=== PATIENT | female | born 1960 | race Caucasian/White ===

== ENCOUNTER → 2016-12-27 | Outpatient (CLI) | payer OTHER ==
[2016-12-27 13:26] LABS: BASO % 0.4 %; BASO ABS # 0.03 K/uL (0-0.2); COMPLETE YES; EOS % 2.9 %; HEMATOCRIT 40.1 % (37-47); IG% 0.1 %; LYMPH % 31.6 %; LYMPH ABS # 2.29 K/uL (1.2-3.4); MEAN CELL VOLUME 91.8 fL (80-100); MEAN CORPUSCULAR HEMOGLOBIN 30.9 pg (25-34); MEAN CORPUSCULAR HGB CONC 33.7 g/dl (32-36); MEAN PLATELET VOLUME 10.1 fL (7.4-10.4); MONO % 12.3 %; NEUT % 52.7 %; PLATELET COUNT 261 K/uL (130-400); RED BLOOD COUNT 4.37 M/uL (4.2-5.4); WHITE BLOOD COUNT 7.24 K/uL (4.8-10.8)
[2016-12-27 14:12] LABS: ALKALINE PHOSPHATASE 92 U/L (45-117); ALT/SGPT 24 U/L (12-78); AST/SGOT 16 U/L (15-37); BLOOD UREA NITROGEN 23 mg/dl (7-18); BUN/CREATININE RATIO 25.7 (10-20); CALCIUM 9.3 mg/dl (8.5-10.1); CARBON DIOXIDE 29 mmol/L (21-32); CHLORIDE 105 mmol/L (98-107); CREATININE 0.88 mg/dl (0.60-1.20); GLUCOSE 90 mg/dl (70-99); MAGNESIUM 2.3 mg/dl (1.8-2.4); POTASSIUM 3.9 mmol/L (3.5-5.1); SODIUM 140 mmol/L (136-145)
== END | disposition home or self-care (01) ==
LOC: C.LABBC 10:11
PROVIDERS: ATTEND Family Medicine
DX: R00.2 Palpitations (principal)

== ENCOUNTER → 2017-01-21 | Outpatient (CLI) | payer OTHER | END | disposition home or self-care (01) | LOC: C.PATHSPEC 14:08 | PROVIDERS: ATTEND Dermatology | DX: D23.61 Other benign neoplasm of skin of right upper limb, including shoulder (principal) ==

== ENCOUNTER → 2017-02-17 | Outpatient (CLI) | payer OTHER | END | disposition home or self-care (01) | LOC: C.PAPS 12:53 | PROVIDERS: ATTEND Family Medicine | DX: Z12.72 Encounter for screening for malignant neoplasm of vagina (principal) ==

== ENCOUNTER 2017-03-23 15:51 | Emergency (ER) | payer OTHER ==
[~2017-03-23] VITALS: Ht 170.2 cm; Wt 106.9 kg
[2017-03-23 15:55] VITALS: TEMP 37.1; Ht 170.2 cm; Wt 106.9 kg
[2017-03-23] MEDS ORDERED: MULT-580 PO (16:12)
[2017-03-23] MEDS ORDERED: PTDOPS OP (16:12)
[2017-03-23] MEDS ORDERED: ASPI81TA28 PO (16:12)
[2017-03-23] MEDS ORDERED: HYDR25TA5 PO (16:12)
[2017-03-23] MEDS ORDERED: MULT-506 PO (16:12)
[2017-03-23] MEDS ORDERED: CHOL100010 PO (16:12)
[2017-03-23] MEDS ORDERED: MONT1TAB3 PO (16:12)
--- NOTE | 2017-03-23 16:59 | DIAGNOSTIC IMAGING REPORT ---
LEFT KNEE 3 VIEWS CLINICAL HISTORY: Fall with left knee pain. FINDINGS: AP, crosstable lateral, and sunrise views of the left knee are obtained. No prior studies are available for comparison at the time of dictation. The skeletal structures are well mineralized. No fracture is seen. There is mild tricompartmental degenerative joint space narrowing, greatest at the patellofemoral articulation. No joint effusion is identified. There is a superior patellar enthesophyte. Prepatellar soft tissue swelling is noted. IMPRESSION: Prepatellar soft tissue swelling with no radiographic evidence of left knee fracture. Electronically signed by: Randy Graham M.D. 03/23/2017 4:57 PM Dictated Date/Time: 03/23/2017 4:56 PM
--- NOTE | 2017-03-23 17:42 | EMERGENCY ROOM VISIT NOTE ---
ED Visit Note First contact with patient: 16:07 CHIEF COMPLAINT: Knee injury HISTORY OF PRESENT ILLNESS: This patient injured the XXXXX knee when XXXXX. REVIEW OF SYSTEMS: No weakness or numbness of the leg, no previous serious injuries or surgery to this knee. PMH: The patient is healthy; there is no significant medical or surgical history. SOCIAL HISTORY: Patient lives at home. PHYSICAL EXAM: Vital Signs: Reviewed Nurse's notes. MENTAL STATUS: Alert, oriented, and cooperative. KNEE: The affected knee is tender but not swollen. There is no joint effusion. The range of motion is limited secondary to pain. There is no ligamentous instability. The skin is normal and intact. The patient walks with an antalgic gait. IMAGING: LEFT KNEE 3 VIEWS CLINICAL HISTORY: Fall with left knee pain. FINDINGS: AP, crosstable lateral, and sunrise views of the left knee are obtained. No prior studies are available for comparison at the time of dictation. The skeletal structures are well mineralized. No fracture is seen. There is mild tricompartmental degenerative joint space narrowing, greatest at the patellofemoral articulation. No joint effusion is identified. There is a superior patellar enthesophyte. Prepatellar soft tissue swelling is noted. IMPRESSION: Prepatellar soft tissue swelling with no radiographic evidence of left knee fracture. EMERGENCY DEPARTMENT COURSE: I examined the patient. Differential diagnosis includes []. X-ray does not show any fractures or fluid in the joint, no foreign bodies. Current/Historical Medications Scheduled Aspirin (Aspirin Ec), 81 MG PO DAILY Cholecalciferol (Vitamin D), 1 TAB PO DAILY Hydrochlorothiazide (Hydrochlorothiazide), 2 TABS PO DAILY Montelukast Sodium (Singulair), 1 TAB PO DAILY Multiple Vitamins W/ Minerals (Hair/Skin/Nails), 1 TAB PO DAILY Multivitamin (Multivitamin), 1 TAB PO DAILY Olopatadine Hydrochloride (Pataday), 1 DROPS OP DAILY Allergies Coded Allergies: Bacitracin (Unverified Allergy, Intermediate, RASH, 03/23/17) SHE GETS A RASH AND SAYS THE WOUND GETS BIGGER IF SHE USES THIS. Neomycin (Unverified Allergy, Intermediate, RASH, 03/23/17) SHE GETS A RASH AND SAYS THE WOUND GETS BIGGER IF SHE USES THIS. Polymyxin B (Unverified Allergy, Intermediate, RASH, 03/23/17) SHE GETS A RASH AND SAYS THE WOUND GETS BIGGER IF SHE USES THIS. Uncoded Allergies: PLASTIC BAND-AIDS (Adverse Reaction, Intermediate, RASH, 03/23/17) Vital Signs Date Time Temp Pulse Resp B/P (MAP) Pulse Ox O2 Delivery O2 Flow Rate FiO2 03/23/17 15:55 37.1 87 17 148/99 95 Room Air Departure Information Impression Primary Impression: Contusion of knee, left Additional Impression: Laceration of left knee without foreign body Dispostion Home / Self-Care Condition GOOD Referrals Paulino Ribeiro, (PCP) Patient Instructions ED Abrasion, ED Contusion Lower Ext, My [facility] Additional Instructions Keep the bandage in place and wear the Anthony wrap for the rest of today. You may remove the bandage tomorrow and wash the wound with soap and water, do not use alcohol or peroxide to clean the wound. After washing, pat the wound dry and keep covered with a Band-Aid for the next 3 -4 days. You may continue to wear the Anthony wrap to the knee for comfort for the next few days as well. Apply ice to the knee for the next 3 days to help reduce pain and swelling. For pain, you may take the following [id number] medications as needed: - Tylenol (acetaminophen) 1000 g every 8 hours as needed, no more than 3000 mg in 24 hours. - Ibuprofen 600 mg every 6-8 hours as needed, no more than 2400 mg in 24 hours. Please follow-up with your primary care provider in the next 3-4 days if your knee pain is not improved. Please seek immediate medical attention for any signs of infection, including increasing pain, redness, swelling, pus drainage, streaking up the leg, fever/ chills, or any other concerns. Work Instructions Return To Work: 2 days Problem Qualifiers Primary Impression: Contusion of knee, left Encounter type: initial encounter Qualified Codes: S80.02XA - Contusion of left knee, initial encounter Additional Impression: Laceration of left knee without foreign body Encounter type: initial encounter Qualified Codes: S81.012A - Laceration without foreign body, left knee, initial encounter
[2017-03-23 18:07] VITALS: BP 136/95; PULSE 82; O2SAT 96
== END 2017-03-23 18:23 | disposition home or self-care (01) ==
LOC: C.EDB 15:53 → C.EDD 18:23
DX: S80.02XA Contusion of left knee, initial encounter (principal); S81.012A Laceration without foreign body, left knee, initial encounter; W19.XXXA Unspecified fall, initial encounter

== ENCOUNTER → 2017-07-04 | Outpatient (CLI) | payer OTHER ==
[~2017-07-04] MED LIST: ASPI81TA28 PO; CHOL100010 PO; HYDR25TA5 PO; MONT1TAB3 PO; MULT-506 PO; MULT-580 PO; PTDOPS OP
--- NOTE | 2017-07-04 17:06 | DIAGNOSTIC IMAGING REPORT ---
LEFT ANKLE 3 VIEWS CLINICAL HISTORY: Left ankle twisting injury. FINDINGS: 3 views of the left ankle are obtained. No prior studies are available for comparison at the time of dictation. The skeletal structures are well mineralized for age. There is a tiny avulsion fracture identified along the inferior aspect of the lateral malleolus. No additional fracture is seen. The ankle mortise is intact. There is a joint effusion, and soft tissue swelling is present around the ankle. Small phlebolith are noted in the calf. IMPRESSION: 1. There is a tiny avulsion fracture along the inferior aspect of the lateral malleolus. 2. Soft tissue swelling and joint effusion. Electronically signed by: Randy Graham M.D. 07/04/2017 5:05 PM Dictated Date/Time: 07/04/2017 5:04 PM
== END | disposition home or self-care (01) ==
LOC: C.RAD 16:39
PROVIDERS: ATTEND Family Medicine
DX: S82.892A Other fracture of left lower leg, initial encounter for closed fracture (principal); X58.XXXA Exposure to other specified factors, initial encounter

== ENCOUNTER 2017-07-14 14:17 | Emergency (ER) | payer OTHER ==
[~2017-07-14] VITALS: Ht 170.2 cm; Wt 105.2 kg
[2017-07-14 14:20] VITALS: TEMP 36.9; Ht 170.2 cm; Wt 105.2 kg
[2017-07-14] MEDS ORDERED: IBUP-103 PO (14:38)
[2017-07-14] MEDS ORDERED: ASPECOTC PO (14:38)
[2017-07-14 15:09] LABS: BASO % 0.3 %; BASO ABS # 0.02 K/uL (0-0.2); EOS % 2.1 %; EOS ABS # 0.17 K/uL (0-0.5); HEMATOCRIT 41.3 % (37-47); HEMOGLOBIN 14.2 g/dL (12.0-16.0); IG# 0.02 K/uL (0.00-0.02); LYMPH ABS # 2.31 K/uL (1.2-3.4); MEAN CORPUSCULAR HEMOGLOBIN 31.3 pg (25-34); MEAN CORPUSCULAR HGB CONC 34.4 g/dl (32-36); MEAN PLATELET VOLUME 9.2 fL (7.4-10.4); MONO % 9.5 %; MONO ABS # 0.76 K/uL (0.11-0.59); NEUT % 58.8 %; NEUT ABS # 4.68 K/uL (1.4-6.5); PLATELET COUNT 243 K/uL (130-400); RED CELL DISTRIBUTION WIDTH CV 12.8 % (11.5-14.5); RED CELL DISTRIBUTION WIDTH SD 42.8 fL (36.4-46.3); WHITE BLOOD COUNT 7.96 K/uL (4.8-10.8)
--- NOTE | 2017-07-14 15:20 | DIAGNOSTIC IMAGING REPORT ---
CHEST ONE VIEW PORTABLE CLINICAL HISTORY: Chest Pain dyspnea COMPARISON STUDY: No previous studies for comparison. FINDINGS: The bones soft tissues and hemidiaphragms are normal. The cardiomediastinal silhouette is normal. The lungs are clear. The pulmonary vasculature is normal. IMPRESSION: Negative chest. The above report was generated using voice recognition software. It may contain grammatical, syntax or spelling errors. Electronically signed by: Tam Morales M.D. 07/14/2017 3:18 PM Dictated Date/Time: 07/14/2017 3:18 PM
[2017-07-14 15:39] LABS: ALBUMIN 3.9 gm/dl (3.4-5.0); ALT/SGPT 26 U/L (12-78); AST/SGOT 18 U/L (15-37); BLOOD UREA NITROGEN 23 mg/dl (7-18); CALCIUM 8.9 mg/dl (8.5-10.1); CARBON DIOXIDE 31 mmol/L (21-32); CREATININE 0.99 mg/dl (0.60-1.20); GLUCOSE 117 mg/dl (70-99); LIPASE 219 U/L (73-393); POTASSIUM 3.7 mmol/L (3.5-5.1); SODIUM 139 mmol/L (136-145)
[2017-07-14 15:45] LABS: ALKALINE PHOSPHATASE 95 U/L (45-117); CKMB 1.9 ng/ml (0.5-3.6); TOTAL PROTEIN 8.1 gm/dl (6.4-8.2)
[2017-07-14] MEDS ORDERED: OPTIRAY 320 IV PRN (16:45)
--- NOTE | 2017-07-14 17:10 | DIAGNOSTIC IMAGING REPORT ---
(CHEST FOR PE) ANGIO WITH CLINICAL HISTORY: 57 years-old Female presenting with ^back pain and pleuritic chest pain. TECHNIQUE: Multidetector CT angiography of the chest was performed after administration of intravenous contrast. 3-D volumetric and/or maximum intensity projection (MIP) images were subsequently reconstructed for review. IV contrast: 94 mL of Optiray 320. A dose lowering technique was used consistent with the principles of ALARA (as low as reasonably achievable). COMPARISON: Chest x-ray performed earlier today. CT DOSE (mGy.cm): The estimated cumulative dose is 544.76 mGycm. FINDINGS: [employer] topogram: Unremarkable. Pulmonary vasculature: The study is suboptimal for the assessment of the pulmonary vascular tree secondary to timing of the contrast bolus. No filling defect within the pulmonary arteries to suggest embolus. Main pulmonary artery is not enlarged. No flattening of the interventricular septum. No intracardiac filling defect. No reflux of contrast into the hepatic veins. Remaining chest: On soft tissue windows, normal thyroid and thoracic inlet. No axillary, supraclavicular, hilar, or mediastinal lymphadenopathy. Normal aorta. Normal heart size. No pericardial or pleural effusion. Upper abdomen normal. On lung windows, minimal dependent changes likely atelectasis. 4 mm solid peripheral nodule in the right lower lobe (series 4 image 157). Solid subpleural 3 mm nodule in the right lower lobe (series 4 image 182). No other focal nodule or infiltrate. Mild bronchial wall thickening. Airways patent. On bone windows, normal osseous structures. IMPRESSION: 1. Allowing for suboptimal image quality, no evidence of pulmonary embolus. 2. Solid right lower lobe pulmonary nodules measuring up to 4 mm. Follow-up per Roger Society 2017 recommendations below. 3. Mild bronchial wall thickening could suggest mild bronchitis/bronchiolitis or reactive airways. No focal infiltrate to suggest pneumonia. Please refer to below summary of Fleischner Society 2017 recommendations for follow-up of incidental CT nodules (H Anum et al. Guidelines for management of incidental pulmonary nodules detected on CT images: From the Fleischner Society 2017. Radiology 2017; 284: 228-243.) SOLID NODULES Single nodule; size < 6 mm * Low risk patients: No routine follow-up * High risk patients: Optional CT at 12 months Single nodule; size 6-8 mm * Low risk patients: CT at 6-12 months, then consider CT at 18-24 months * High risk patients: CT at 6-12 months, then at 18-24 months Single nodule; size > 8 mm * Either low or high risk patients: Considered CT at 3 months, PET/CT, or tissue sampling Multiple nodules; size < 6 mm * Low risk patients: No routine follow up * High risk patients: Optional CT at 12 months Multiple nodules; size 6-8 mm * Low risk patients: CT at 3-6 months, then consider CT at 18-24 months * High risk patients: CT at 3-6 months, then at 18-24 months Multiple nodules; size > 8 mm * Low risk patients: CT at 3-6 months, then consider at 18-24 months * High risk patients: CT at 3-6 months, then at 18-24 months SUBSOLID NODULES Single ground-glass nodule * Nodule size < 6 mm: No routine follow-up * Nodule size > or = 6 mm: CT at 6-12 months to confirm persistence, then CT every 2 years until 5 years Single part-solid nodule * Nodule size < 6 mm: No routine follow-up * Nodules size > or = 6 mm: CT at 3-6 months to confirm persistence. If unchanged and solid component remains < 6 mm, annual CT should be performed for 5 years Multiple nodules * Nodule size < 6 mm: CT at 3-6 months. If stable, consider CT at 2 and 4 years. * Nodules size > or = 6 mm: CT at 3-6 months. Subsequent management based on the most suspicious nodule(s) NOTE: 1) These guidelines apply to incidental nodules. These guidelines do NOT apply to patients younger than 35 years, immunocompromised patients, or patients with cancer. 2) Risk categories: * Low risk patients: Minimal or absent history of smoking and/or other known risk factors * High risk patients: History of smoking, exposure to other carcinogens, emphysema, fibrosis, upper lobe location, family history of lung cancer, etc. 3) If a nodule up to 8 mm is partly solid or is ground glass, further follow-up is required after 24 months to exclude possible slow growing adenocarcinoma. Electronically signed by: Hayder Roth M.D. 07/14/2017 5:09 PM Dictated Date/Time: 07/14/2017 5:03 PM
--- NOTE | 2017-07-14 17:51 | EMERGENCY ROOM VISIT NOTE ---
History Report prepared by [place]: Duke Marley Under the Supervision of: Dr. Thang Rosas D.O. First contact with patient: 14:33 Chief Complaint: CARDIAC ASSESSMENT Stated Complaint: HEART PRESSURE Nursing Triage Summary: Last night patient had sudden onset of pain between shoulder blades. Patient at that time had nausea and vomiting. that pain went away and patient went to bed. Today around 1300 pain came back in between shoulder blades, pain goes into upper and left abd. Patient says she feels like she has to burp. History of Present Illness The patient is a 57 year old female who presents to the Emergency Room with complaints of intermittent upper central back pain beginning last night. She describes her pain as "stabbing". The patient's pain initially began after eating dinner. Her pain resolved after going to bed, and returned at 12:00 while eating lunch. The patient also complains of pain radiating into her chest intermittently from her back when the pain intensifies. She also admits to some nausea and one episode of vomiting last night and shakiness last night. Her pain is worse with breathing. The patient did not vomit with her pain today , but felt nauseous with her pain again. No other exacerbating or remitting factors. Pt denies headache, change in vision, fevers, shortness of breath, abdominal pain, nausea, vomiting, diarrhea, pain with urination, and melena. Patient denies swelling of calves, recent trips, history of immobilization or recent surgery, prior history of DVT, hemoptysis, history of malignancy, or control/estrogen use. Patient denies diabetes, hypertension, hyperlipidemia, CAD, history of sudden at a young age, and smoking. Source of History: patient Onset: Last night Position: back (upper central) Quality: stabbing Timing: intermittent Modifying Factors (Worsening): breathing Associated Symptoms: + chest pain (intermittent), + nausea, + vomiting, No fevers, No headache, No SOB, No melena, No diarrhea Note: Positive: shakiness. Review of Systems See HPI for pertinent positives & negatives. A total of 10 systems reviewed and were otherwise negative. Past Medical & Surgical Medical Problems: (1) HTN (hypertension) Family History No pertinent family history stated. Social History Smoking Status: Never Smoker Housing Status: lives with family Current/Historical Medications Scheduled Aspirin (Aspirin), 325 MG PO DAILY Cholecalciferol (Vitamin D), 1 TAB PO DAILY Hydrochlorothiazide (Hydrochlorothiazide), 2 TABS PO DAILY Ibuprofen Tab (Advil), 0 PO DAILY Montelukast Sodium (Singulair), 1 TAB PO DAILY Multiple Vitamins W/ Minerals (Hair/Skin/Nails), 1 TAB PO DAILY Multivitamin (Multivitamin), 1 TAB PO DAILY Olopatadine Hydrochloride (Pataday), 1 DROPS OP DAILY Allergies Coded Allergies: Bacitracin (Unverified Allergy, Intermediate, RASH, 07/14/17) SHE GETS A RASH AND SAYS THE WOUND GETS BIGGER IF SHE USES THIS. Neomycin (Unverified Allergy, Intermediate, RASH, 07/14/17) SHE GETS A RASH AND SAYS THE WOUND GETS BIGGER IF SHE USES THIS. Polymyxin B (Unverified Allergy, Intermediate, RASH, 07/14/17) SHE GETS A RASH AND SAYS THE WOUND GETS BIGGER IF SHE USES THIS. Uncoded Allergies: PLASTIC BAND-AIDS (Adverse Reaction, Intermediate, RASH, 03/23/17) Physical Exam Vital Signs Date Time Temp Pulse Resp B/P (MAP) Pulse Ox O2 Delivery O2 Flow Rate FiO2 07/14/17 16:00 73 131/88 07/14/17 14:56 77 20 147/89 98 Room Air 07/14/17 14:31 78 07/14/17 14:27 95 Room Air 07/14/17 14:20 36.9 83 20 163/102 97 Room Air Physical Exam GENERAL: Sitting up in bed, disheveled, no distress, non-toxic EYE EXAM: normal conjunctiva. OROPHARYNX: no exudate, no erythema, lips, buccal mucosa, and tongue normal and mucous membranes are moist NECK: supple, no nuchal rigidity, no adenopathy, non-tender LUNGS: Clear to auscultation. Normal chest wall mechanics HEART: no murmurs, S1 normal and S2 normal ABDOMEN: abdomen soft, non-tender, normo-active bowel sounds, no masses, no rebound or guarding. BACK: Back is symmetrical on inspection and there is no deformity, no CVA tenderness. Reproducible mid thoracic back pain. SKIN: no rashes and no bruising UPPER EXTREMITIES: upper extremities are grossly normal. Radial pulses are equal bilaterally. LOWER EXTREMITIES: No pitting edema. NEURO EXAM: Normal sensorium, cranial nerves II-XII grossly intact, normal speech, no gross weakness of arms, no gross weakness of legs. Medical Decision & Procedures ER Provider Diagnostic Interpretation: Radiology results as stated below per my review and the radiologist's interpretation: CHEST ONE VIEW PORTABLE FINDINGS: The bones soft tissues and hemidiaphragms are normal. The cardiomediastinal silhouette is normal. The lungs are clear. The pulmonary vasculature is normal. IMPRESSION: Negative chest. The above report was generated using voice recognition software. It may contain grammatical, syntax or spelling errors. Electronically signed by: Tam Morales M.D. 07/14/2017 3:18 PM (CHEST FOR PE) ANGIO WITH FINDINGS: Pasting Inspector topogram: Unremarkable. Pulmonary vasculature: The study is suboptimal for the assessment of the pulmonary vascular tree secondary to timing of the contrast bolus. No filling defect within the pulmonary arteries to suggest embolus. Main pulmonary artery is not enlarged. No flattening of the interventricular septum. No intracardiac filling defect. No reflux of contrast into the hepatic veins. Remaining chest: On soft tissue windows, normal thyroid and thoracic inlet. No axillary, supraclavicular, hilar, or mediastinal lymphadenopathy. Normal aorta. Normal heart size. No pericardial or pleural effusion. Upper abdomen normal. On lung windows, minimal dependent changes likely atelectasis. 4 mm solid peripheral nodule in the right lower lobe (series 4 image 157). Solid subpleural 3 mm nodule in the right lower lobe (series 4 image 182). No other focal nodule or infiltrate. Mild bronchial wall thickening. Airways patent. On bone windows, normal osseous structures. IMPRESSION: 1. Allowing for suboptimal image quality, no evidence of pulmonary embolus. 2. Solid right lower lobe pulmonary nodules measuring up to 4 mm. Follow-up per Roger Society 2017 recommendations below. 3. Mild bronchial wall thickening could suggest mild bronchitis/bronchiolitis or reactive airways. No focal infiltrate to suggest pneumonia. Please refer to below summary of Fleischner Society 2017 recommendations for follow-up of incidental CT nodules (Myles Rowan et al. Guidelines for management of incidental pulmonary nodules detected on CT images: From the Fleischner Society 2017. Radiology 2017; 284: 228-243.) SOLID NODULES Single nodule; size < 6 mm * Low risk patients: No routine follow-up * High risk patients: Optional CT at 12 months Single nodule; size 6-8 mm * Low risk patients: CT at 6-12 months, then consider CT at 18-24 months * High risk patients: CT at 6-12 months, then at 18-24 months Single nodule; size > 8 mm * Either low or high risk patients: Considered CT at 3 months, PET/CT, or tissue sampling Multiple nodules; size < 6 mm * Low risk patients: No routine follow up * High risk patients: Optional CT at 12 months Multiple nodules; size 6-8 mm * Low risk patients: CT at 3-6 months, then consider CT at 18-24 months * High risk patients: CT at 3-6 months, then at 18-24 months Multiple nodules; size > 8 mm * Low risk patients: CT at 3-6 months, then consider at 18-24 months * High risk patients: CT at 3-6 months, then at 18-24 months SUBSOLID NODULES Single ground-glass nodule * Nodule size < 6 mm: No routine follow-up * Nodule size > or = 6 mm: CT at 6-12 months to confirm persistence, then CT every 2 years until 5 years Single part-solid nodule * Nodule size < 6 mm: No routine follow-up * Nodules size > or = 6 mm: CT at 3-6 months to confirm persistence. If unchanged and solid component remains < 6 mm, annual CT should be performed for 5 years Multiple nodules * Nodule size < 6 mm: CT at 3-6 months. If stable, consider CT at 2 and 4 years. * Nodules size > or = 6 mm: CT at 3-6 months. Subsequent management based on the most suspicious nodule(s) NOTE: 1) These guidelines apply to incidental nodules. These guidelines do NOT apply to patients younger than 35 years, immunocompromised patients, or patients with cancer. 2) Risk categories: * Low risk patients: Minimal or absent history of smoking and/or other known risk factors * High risk patients: History of smoking, exposure to other carcinogens, emphysema, fibrosis, upper lobe location, family history of lung cancer, etc. 3) If a nodule up to 8 mm is partly solid or is ground glass, further follow-up is required after 24 months to exclude possible slow growing adenocarcinoma. Electronically signed by: Hayder Roth M.D. 07/14/2017 5:09 PM Laboratory Results 07/14/17 15:00 Red Blood Count 4.54, Mean Corpuscular Volume 91.0, Mean Corpuscular Hemoglobin 31.3, Mean Corpuscular Hemoglobin Concent 34.4, Mean Platelet Volume 9.2, Neutrophils (%) (Auto) 58.8, Lymphocytes (%) (Auto) 29.0, Monocytes (%) (Auto) 9.5, Eosinophils (%) (Auto) 2.1, Basophils (%) (Auto) 0.3, Neutrophils # (Auto) 4.68, Lymphocytes # (Auto) 2.31, Monocytes # (Auto) 0.76, Eosinophils # (Auto) 0.17, Basophils # (Auto) 0.02 07/14/17 15:00 Test 07/14/17 15:00 07/14/17 16:23 White Blood Count 7.96 K/uL (4.8-10.8) Red Blood Count 4.54 M/uL (4.2-5.4) Hemoglobin 14.2 g/dL (12.0-16.0) Hematocrit 41.3 % (37-47) Mean Corpuscular Volume 91.0 fL (80-100) Mean Corpuscular Hemoglobin 31.3 pg (25-34) Mean Corpuscular Hemoglobin Concent 34.4 g/dl (32-36) Platelet Count 243 K/uL (130-400) Mean Platelet Volume 9.2 fL (7.4-10.4) Neutrophils (%) (Auto) 58.8 % Lymphocytes (%) (Auto) 29.0 % Monocytes (%) (Auto) 9.5 % Eosinophils (%) (Auto) 2.1 % Basophils (%) (Auto) 0.3 % Neutrophils # (Auto) 4.68 K/uL (1.4-6.5) Lymphocytes # (Auto) 2.31 K/uL (1.2-3.4) Monocytes # (Auto) 0.76 K/uL (0.11-0.59) Eosinophils # (Auto) 0.17 K/uL (0-0.5) Basophils # (Auto) 0.02 K/uL (0-0.2) RDW Standard Deviation 42.8 fL (36.4-46.3) RDW Coefficient of Variation 12.8 % (11.5-14.5) Immature Granulocyte % (Auto) 0.3 % Immature Granulocyte # (Auto) 0.02 K/uL (0.00-0.02) Anion Gap 6.0 mmol/L (3-11) Est Creatinine Clear Calc Drug Dose 79.2 ml/min Estimated GFR () 73.8 Estimated GFR (Non- 63.7 BUN/Creatinine Ratio 22.8 (10-20) Calcium Level 8.9 mg/dl (8.5-10.1) Total Bilirubin 0.5 mg/dl (0.2-1) Direct Bilirubin 0.1 mg/dl (0-0.2) Aspartate Amino Transf (AST/SGOT) 18 U/L (15-37) Alanine Aminotransferase (ALT/SGPT) 26 U/L (12-78) Alkaline Phosphatase 95 U/L (45-117) Total Creatine Kinase 126 U/L (26-192) Creatine Kinase MB 1.9 ng/ml (0.5-3.6) Creatine Kinase MB Ratio 1.5 (0-3.0) Troponin I < 0.015 ng/ml (0-0.045) Total Protein 8.1 gm/dl (6.4-8.2) Albumin 3.9 gm/dl (3.4-5.0) Lipase 219 U/L (73-393) D-Dimer 430 ug/L FEU (0-500) Laboratory results per my review. ECG Per My Interpretation Indication: chest pain Rate (beats per minute): 74 Rhythm: sinus rhythm Findings: other (Non-specific ST wave changes lateral. No PVCs. ) Comparison ECG Date: no prior available ED Course ED COURSE: Vital signs were reviewed and showed hypertension. The patients medical record was reviewed The above diagnostic studies were performed and reviewed. ED treatments and interventions as stated above. 1441: The patient was evaluated in room C8. A complete history and physical examination was performed. 1525: Upon reevaluation, the patient is resting comfortably. She would like to go home, and does not want to wait for repeat Troponin. I discussed my findings with the patient and she understands and agrees with the treatment plan. Based on the patients age, coexisting illnesses, exam and lab findings the decision to treat as an outpatient was made. The patient remained stable while under my care. The patient appeared well at the time of discharge. Medical Decision Differential diagnoses includes but is not limited to acute coronary syndrome, myocardial infarction, pericarditis, pulmonary embolus, aortic dissection, pneumonia, pneumothorax, musculoskeletal, shingles, esophageal. Patient is a 57-year-old female with no significant cardiac risk factors with the exception of hypertension who presents the ER for pain between her scapulas. Pain started last night directly after eating and again today at lunch after eating. This is the same exact pain she had last night. No other exacerbating or remitting factors. CBC along with BMP, LFTs, bilirubin and lipase was normal. Troponin was negative. No urinary symptoms. EKG was unremarkable. D-dimer was negative. CT PE was performed as the pain was in her mid upper back to rule out possible dissection and also cuts the lung winkler. Pain when it worsens does radiate through to her chest. This did show a pulmonary nodule. I updated both patient and her at bedside. It is 4 mm. She will need a repeat CT in 1 year. Both her and the patient understood this. I did recommend a repeat troponin which would be drawn 3 hours from the initial troponin. She did decline this as she notes she truly does not feel that this is her heart. I noted that the initial troponin can reasonably make ACS extremely unlikely in regards to her first event last night as it was greater than 6 hours. It would however need to be repeated for the second episode to apply the heart score with the second episode although it was exactly like her first yesterday. Patient following informed refusal of care declines repeat troponin. No dissection. Negative d-dimer. Low risk for PEs. No upper respiratory symptoms. Pain on both occasions occurred after eating. I do favor this is likely esophageal in nature but cannot be certain. Discharged and recommend following up with PCP starting Pepcid. Discussed with Pt concerning signs and symptoms to watch out for. Pt was instructed to follow up with their PCP and discussed with the patient their option to return to the ED at anytime for persistent or worsening symptoms. The appropriate anticipatory guidance and out-patient management, including indications for return to the emergency department, were explained at length to the patient and understood. Medication Reconcilliation Current Medication List: was personally reviewed by me Blood Pressure Screening Patient's blood pressure: Elevated blood pressure Blood pressure disposition: Elevated BP felt to be situational Impression Primary Impression: Back pain Additional Impressions: Chest pain Pulmonary nodule Scribe Attestation The scribe's documentation has been prepared under my direction and personally reviewed by me in its entirety. I confirm that the note above accurately reflects all work, treatment, procedures, and medical decision making performed by me. Departure Information Dispostion Home / Self-Care Referrals Paulino Ribeiro DO (PCP) Forms IMPORTANT VISIT INFORMATION Patient Instructions Back Pain - [facility], My [facility] Additional Instructions Please follow up with your primary care doctor or if you are a student, [facility] with in the next 24 hours. Any worsening of your symptoms, please return to the ED immediately. This includes any fevers greater than 100.4, worsening pain, chest pain, shortness breath, persistent nausea, vomiting, unable to eat or drink, or any other concerning signs or symptoms from your standpoint. Please take Tylenol or Motrin as needed for pain. You may benefit also from trying Pepcid as these 2 incidences occurred after eating. Problem Qualifiers Primary Impression: Back pain Back pain location: thoracic back pain Chronicity: acute Back pain laterality: midline Qualified Codes: M54.6 - Pain in thoracic spine Additional Impressions: Chest pain Chest pain type: unspecified Qualified Codes: R07.9 - Chest pain, unspecified
[2017-07-14 18:16] VITALS: BP 150/96; PULSE 71; O2SAT 97
== END 2017-07-14 18:17 | disposition home or self-care (01) ==
LOC: C.EDB 14:19 → C.EDC 18:17
DX: M54.6 Pain in thoracic spine (principal); R07.9 Chest pain, unspecified; R91.1 Solitary pulmonary nodule; I10 Essential (primary) hypertension; Z79.82 Long term (current) use of aspirin; Z79.899 Other long term (current) drug therapy; Z88.1 Allergy status to other antibiotic agents; Z88.8 Allergy status to other drugs, medicaments and biological substances; Z91.048 Other nonmedicinal substance allergy status

== ENCOUNTER 2017-10-20 23:00 | Inpatient (IN) | payer OTHER ==
[~2017-10-20] VITALS: Ht 170.2 cm; Wt 104.8 kg
[~2017-10-20 23:00] MED LIST changes: +ASPECOTC PO; -ASPI81TA28 PO; +IBUP-103 PO
[2017-10-20] MEDS ORDERED: SODIUM CHLORIDE 0.9% 1000ML 1,000 ML IV STA (23:09)
--- NOTE | 2017-10-20 23:22 | EMERGENCY ROOM VISIT NOTE ---
History Report prepared by [place]: Antonino Gonzalez Under the Supervision of: Dr. Cathleen Schwartz D.O. First contact with patient: 23:02 Chief Complaint: FEVER Stated Complaint: FEVER, UNRESPONSIVE EPISODE History of Present Illness The patient is a 57 year old female who presents to the Emergency Room with complaints of an episode of unresponsiveness occurring tonight. Per EMS, the patient's found her unresponsive face down in the bathroom. States she would not respond when he tried to arouse her and call her name and that her face appeared slightly blue. She had sonorous respirations at that time.. He states that the patient's last known well was at 2030 tonight. He notes that the patient did not have a witnessed seizure, but he reports that the patient has a gerard on her tongue from biting it. He states that the patient vomited earlier today and currently has a fever. He states she had had a low-grade fever intermittently over the course of the week and nausea. He notes that the patient does not have a headache, blurry vision, and double vision. The patient also denies any diarrhea, tongue pain, CP, abdominal pain, rash, and SOB. She reports that she does not remember anything from today and yesterday and she states that she has not had any similar episodes in the past. Per EMS, the patient's oxygen saturation was in the mid 80s when she was found and he notes that the patient was tachypneic. He reports that the patient was given 650mg of Tylenol PO en route to the emergency department. He states that the patient has a history of hypertension but does not have a history of seizures and lung problems. Patient saw her PCP on Tuesday after not feeling well over the course of the week, and a Lyme's test was sent. She returned yesterday when her symptoms were not improved. He notes that the patient was started on doxycycline yesterday for presumed Lyme disease. He reports that the patient has a family history of strokes. He states that the patient does not use drugs or drink alcohol. The patient also notes that she does not smoke cigarettes. HPI limited secondary to the patient's AMS. Source of History: patient, EMS Onset: tonight Position: other (generalized) Quality: other (unresponsiveness) Timing: other (an episode) Associated Symptoms: + fevers, + vomiting, No headache, No chest pain, No SOB, No nausea, No abdominal pain, No diarrhea, No rash Note: Per EMS, the patient has a gerard on her tongue from biting it. He states that the patient does not have any blurry and double vision. The patient also denies any tongue pain. She notes that she does not remember anything from today or yesterday. Review of Systems ROS limited secondary to the patient's AMS. Past Medical & Surgical Medical Problems: (1) Encephalopathy due to infection (2) HTN (hypertension) Family History Stroke Social History Smoking Status: Never Smoker Alcohol Use: none Drug Use: none Marital Status: Housing Status: lives with family Occupation Status: employed Current/Historical Medications Scheduled Aspirin (Aspirin), 325 MG PO DAILY Hydrochlorothiazide (Hydrochlorothiazide), 2 TABS PO DAILY Multivitamin (Multivitamin), 1 TAB PO DAILY Olopatadine Hydrochloride (Pataday), 1 DROPS OP DAILY Allergies Coded Allergies: Bacitracin (Unverified Allergy, Intermediate, RASH, 10/21/17) SHE GETS A RASH AND SAYS THE WOUND GETS BIGGER IF SHE USES THIS. Neomycin (Unverified Allergy, Intermediate, RASH, 10/21/17) SHE GETS A RASH AND SAYS THE WOUND GETS BIGGER IF SHE USES THIS. Polymyxin B (Unverified Allergy, Intermediate, RASH, 10/21/17) SHE GETS A RASH AND SAYS THE WOUND GETS BIGGER IF SHE USES THIS. Uncoded Allergies: PLASTIC BAND-AIDS (Adverse Reaction, Intermediate, RASH, 03/23/17) Physical Exam Vital Signs Date Time Temp Pulse Resp B/P (MAP) Pulse Ox O2 Delivery O2 Flow Rate FiO2 10/21/17 02:16 37.5 84 20 148/87 98 Room Air 10/21/17 00:52 97 Room Air 10/21/17 00:50 37.2 90 20 138/87 97 Room Air 10/20/17 23:53 102 20 134/90 98 Nasal Cannula 2.0 10/20/17 23:52 94 Nasal Cannula 2.0 10/20/17 23:18 99 10/20/17 23:05 37.2 98 20 134/90 94 Nasal Cannula 2.0 Physical Exam GENERAL: alert, well appearing, well nourished, no distress, non-toxic, obese EYE EXAM: normal conjunctiva, PERRL and EOM's grossly intact OROPHARYNX: no exudate, no erythema, lips, buccal mucosa, and mucous membranes are moist. Tongue contusion noted, no mucocutaneous lesions. NECK: supple, no nuchal rigidity, no adenopathy, non-tender LUNGS: Clear to auscultation. Normal chest wall mechanics. No wheezes, rhonchi, and rales. HEART: no murmurs, S1 normal and S2 normal ABDOMEN: abdomen soft, non-tender, normo-active bowel sounds, no masses, no rebound or guarding. BACK: Back is symmetrical on inspection and there is no deformity, no midline tenderness, no CVA tenderness. SKIN: no bruising. Bilateral distal lower extremities have scattered, subcentimeter, maculopapular, erythematous lesions, no petechia, no sloughing, no vesicles. UPPER EXTREMITIES: upper extremities are grossly normal. LOWER EXTREMITIES: No pitting edema. NEURO EXAM: Normal sensorium, cranial nerves II-XII grossly intact, normal speech, no gross weakness of arms, no gross weakness of legs. Medical Decision & Procedures ER Provider Diagnostic Interpretation: Radiology results have been interpreted and reviewed by me. CHEST X-RAY: No cardiomegaly, no effusions, no wide mediastinum, no focal consolidation, and no pulmonary edema. Poor inspiratory effort. Radiology results have been interpreted by the radiologist and reviewed by me. CT C SPINE: No acute fracture. Defect in the right C1 lamina may be congenital or related to remote trauma. Degenerative changes are most pronounced to upper left facet joints. Moderate left neural foraminal stenosis at C3-4 and mild narrowing at C4 -5. Radiologist: Neftaly Sylvester M.D. CT HEAD: No acute intracranial process. Radiologist: Neftaly Sylvester M.D. CT ABDOMEN & PELVIS With Contrast: No abdominal visceral injury. Nonobstructing lower pole left renal calculus. Suspect cholelithiasis. Calcified uterine fibroid. Radiologist: Neftaly Sylvester M.D. Laboratory Results Test 10/20/17 23:15 10/20/17 23:22 10/20/17 23:35 10/21/17 00:00 RDW Standard Deviation 42.3 fL (36.4-46.3) RDW Coefficient of Variation 12.5 % (11.5-14.5) White Blood Count 6.65 K/uL (4.8-10.8) Red Blood Count 4.45 M/uL (4.2-5.4) Hemoglobin 13.5 g/dL (12.0-16.0) Hematocrit 40.4 % (37-47) Mean Corpuscular Volume 90.8 fL (80-100) Mean Corpuscular Hemoglobin 30.3 pg (25-34) Mean Corpuscular Hemoglobin Concent 33.4 g/dl (32-36) Platelet Count 165 K/uL (130-400) Mean Platelet Volume 9.6 fL (7.4-10.4) Neutrophils (%) (Auto) 72.5 % Lymphocytes (%) (Auto) 17.9 % Monocytes (%) (Auto) 8.9 % Eosinophils (%) (Auto) 0.2 % Basophils (%) (Auto) 0.3 % Neutrophils # (Auto) 4.83 K/uL (1.4-6.5) Lymphocytes # (Auto) 1.19 K/uL (1.2-3.4) Monocytes # (Auto) 0.59 K/uL (0.11-0.59) Eosinophils # (Auto) 0.01 K/uL (0-0.5) Basophils # (Auto) 0.02 K/uL (0-0.2) Immature Granulocyte % (Auto) 0.2 % Immature Granulocyte # (Auto) 0.01 K/uL (0.00-0.02) Prothrombin Time 10.6 SECONDS (9.0-12.0) Prothromb Time International Ratio 1.0 (0.9-1.1) Activated Partial Thromboplast Time 23.7 SECONDS (21.0-31.0) Partial Thromboplastin Ratio 0.9 Est Creatinine Clear Calc Drug Dose 65.0 ml/min Total Bilirubin 0.5 mg/dl (0.2-1) Alanine Aminotransferase (ALT/SGPT) 88 U/L (12-78) Alkaline Phosphatase 76 U/L (45-117) Troponin I < 0.015 ng/ml (0-0.045) Pro-B-Type Natriuretic Peptide 51 pg/ml (0-900) Total Protein 7.6 gm/dl (6.4-8.2) Albumin 3.5 gm/dl (3.4-5.0) Globulin 4.1 gm/dl (2.5-4.0) Albumin/Globulin Ratio 0.9 (0.9-2) Thyroid Stimulating Hormone (TSH) 1.870 uIu/ml (0.300-4.500) Bedside Lactic Acid Venous 2.26 mmol/L (0.90-1.70) Influenza Type A Antigen Neg for Influ A (NEG) Influenza Type B Antigen Neg for Influ B (NEG) CSF Color COLORLESS CSF Appearance CLEAR CSF WBC 4 /uL (0-5) CSF RBC 0 /uL (0) CSF Xanthrochromic NO XANTHOCHROMIA CSF Cell Count Tube # 4 CSF Chemistry Tube # 2 CSF Glucose 63 mg/dl (40-70) CSF Total Protein 47.4 mg/dl (15.0-45.0) Test 10/21/17 00:36 10/21/17 00:44 Aspartate Amino Transf (AST/SGOT) 52 U/L (15-37) Total Creatine Kinase 123 U/L (26-192) Procalcitonin 0.06 ng/ml (0-0.5) Lyme Disease IgG Antibody NEG (NEG) Lyme Disease IgM Antibody NEG (NEG) Monoscreen NEG (NEG) Urine Color YELLOW Urine Appearance CLEAR (CLEAR) Urine pH 5.5 (4.5-7.5) Urine Specific Gilman 1.017 (1.000-1.030) Urine Protein 1+ (NEG) Urine Glucose (UA) NEG (NEG) Urine Ketones NEG (NEG) Urine Occult Blood NEG (NEG) Urine Nitrite NEG (NEG) Urine Bilirubin NEG (NEG) Urine Urobilinogen NEG (NEG) Urine Leukocyte Esterase NEG (NEG) Urine WBC (Auto) 1-5 /hpf (0-5) Urine RBC (Auto) 0-4 /hpf (0-4) Urine Hyaline Casts (Auto) 10-30 /lpf (0-5) Urine Epithelial Cells (Auto) 20-30 /lpf (0-5) Urine Bacteria (Auto) NEG (NEG) Laboratory results per my review. Medications Administered Medications (Trade) Dose Ordered Sig/Lesa Route Start Time Stop Time Status Last Admin Dose Admin Sodium Chloride 1,000 ml @ 999 mls/hr Q1H1M STAT IV 10/20/17 23:09 10/21/17 00:09 DC 10/20/17 23:09 999 MLS/HR Vancomycin HCl 2500 mg/Sodium Chloride 550 ml @ 200 mls/hr ONE STAT IV 10/20/17 23:26 10/21/17 02:10 DC 10/20/17 23:26 200 MLS/HR Ceftriaxone Sodium 2000 mg/ Dextrose 70 ml @ 100 mls/hr ONE STAT IV 10/20/17 23:26 10/21/17 00:07 DC 10/20/17 00:50 100 MLS/HR Dexamethasone Sodium Phosphate (Decadron Inj) 10 mg NOW STAT IV 10/20/17 23:35 10/20/17 23:36 DC 10/21/17 00:16 10 MG Ampicillin Sodium 2000 mg/Sodium Chloride 100 ml @ 200 mls/hr NOW STAT IV 10/20/17 23:35 10/21/17 00:04 DC 10/20/17 23:35 200 MLS/HR Magnesium Sulfate (Magnesium Sulfate 1gm / D5W) 1 gm NOW STAT IV 10/21/17 01:15 10/21/17 01:16 DC 10/21/17 01:24 1 GM Potassium/ Phosphorus/Sodium (Phospha 250 Neutral 155-852-130 Mg) 1 tab NOW STAT PO 10/21/17 01:15 10/21/17 01:16 DC 10/21/17 01:24 1 TAB Sodium Chloride 1,000 ml @ 100 mls/hr Q10H IV 10/21/17 02:20 11/20/17 02:19 10/21/17 05:14 100 MLS/HR Procedure Lumbar Puncture Indication: Fever and seizure. Verbal consent was obtained after the risks and benefits were explained, including but not limited to headache, bleeding/clotting, scarring, infection, pain, and bone/joint/nerve damage. At this time, the risks of the procedure are less than the risks of NOT performing the procedure. A time out was taken and the correct patient and site identified. The patient was placed in the seated position and the back was prepped with betadine and draped in the standard fashion. The L3 intervertebral space was identified, anesthetized locally with 1 % lidocaine with epinephrine, and the spinal needle was inserted through the skin with the bevel parallel to the dural fibers. The needle was carefully advanced into the lumbar cistern and 4 tubes of 2ml clear CSF was obtained. The stylet was replaced and the needle was removed. A bandaid was placed and the patient was placed in the supine position. The patient tolerated the procedure well and there were no complications. ECG Per My Interpretation Indication: altered mental status Rate (beats per minute): 93 Rhythm: sinus rhythm Findings: no acute ischemic change, no ectopy, other (Normal axis, normal intervals, baseline artifact noted) ED Course 2303: The patient was evaluated in room C5. A complete history and physical exam was performed. 2309: Sodium Chloride 1000 ml @ 999 mls/hr IV 2325: I reevaluated and updated the patient. She went to CT. I prepped for lumbar puncture. The patient's is here and went to CT with her. 2326: Ceftriaxone Sodium 2000 mg/Dextrose 70 ml @ 100 mls/hr IV 2333: I rechecked the patient. I had a bedside discussion with the patient's . He states that the patient was unresponsive and mildly blue when he found her face down in the bathroom. He notes that he then called 911 and tried to reposition the patient. He reports that the patient started to snore and come out of her unresponsive state. He states that the patient was initially confused but has been getting better. He notes that the patient is still not back to normal. He reports that the patient has been sick for a week and saw her PCP for lyme testing. He states that the patient continued to be sick and was therefore empirically started on doxycycline yesterday. He notes that they have not received any results yet. 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 He states that the patient is often exposed to ticks and bugs because of her job. He denies that the patient has had any diarrhea, abdominal pain, CP, headaches, and upper respiratory symptoms recently. He confirms that the patient does not have a personal or family history of seizures. He notes that the patient has not had any similar episodes in the past. 2345: I performed a lumbar puncture on the patient and she did well. 2335: Decadron Inj 10mg IV, Ampicillin Sodium 2000 mg/Sodium Chloride 100 ml @ 200 mls/hr IV 2349: Lidocaine/Epinephrine 10ml Injection 0023: I reevaluated and updated the patient. She now knows her birthday. 0100: I rechecked the patient. 0115: Potassium/Phosphorus/Sodium 1 tab PO, Magnesium Sulfate 1gm IV 0122: Upon reevaluation, the patient is stable. I discussed the findings and the treatment plan with the patient. She expresses agreement and understanding. I spoke with Dr. Jacobsen of the [facility] Hospitalist Service. The patient will be evaluated for further management. Medical Decision Differential diagnosis: Etiologies such as viral syndrome, otitis, pharyngitis, pneumonia, influenza, meningitis, urinary tract infection, sepsis, bacteremia, hypoglycemia, electrolyte abnormalities, cardiac sources, intracerebral event, trauma, toxicologic, neurologic, as well as others were entertained. Patient here awake and alert however still with confusion which is new compared to baseline. Patient with concerning episode tonight during her unresponsive episode. No witnessed seizure, however suspected seizure given evolution of improvement in cognition and tongue contusion that was noted. Imaging here reassuring, labs reassuring, CSF not impressive for acute bacterial meningitis. Other viral cultures still pending at this time. Patient had no complaints at bedside and exam was reassuring. Patient hemodynamically stable throughout. Patient and aware of all concerns and kept up-to-date on all results. Explained to them possible differential diagnosis and need for additional evaluation and treatment with hospitalist. They verbalized understanding were agreeable with plan. I do not suspect CVA, bacterial meningitis, septic thrombus, subarachnoid hemorrhage, occult ENT infection. Patient given broad- spectrum antibiotics while cultures pending. I do not suspect other occult traumatic injury given unresponsive episode tonight and possible fall off commode at home. Medication Reconcilliation Current Medication List: was personally reviewed by me Blood Pressure Screening Patient's blood pressure: Elevated blood pressure Elevated blood pressure will be monitored by hospitalist. Consults Time Called: 0120 Consulting Physician: Dr. Jacobsen - Hospitalist, [facility] Returned Call: [phone] I reviewed the patient's case with Dr. Jacobsen. She will evaluate the patient for further management. Impression Primary Impression: Altered mental status Additional Impressions: Fever Unresponsive episode Hypokalemia Hypomagnesemia Critical Care I have personally spent 45 minutes of critical care time in the direct management of this patient. This includes bedside care, interpretation of diagnostic studies, and testing, discussion with consultants, patient, and family members, and other required patient management activities. This 45 minutes is in excess of all separately billable procedures. Scribe Attestation The scribe's documentation has been prepared under my direction and personally reviewed by me in its entirety. I confirm that the note above accurately reflects all work, treatment, procedures, and medical decision making performed by me. Departure Information Dispostion Being Evaluated By Hospitalist Referrals Paulino Ribeiro DO (PCP) Patient Instructions My [facility] Problem Qualifiers Primary Impression: Altered mental status Altered mental status type: unspecified Qualified Codes: R41.82 - Altered mental status, unspecified Additional Impressions: Fever Fever type: unspecified Qualified Codes: R50.9 - Fever, unspecified
[2017-10-20] MEDS ORDERED: CEFTRIAXONE SOD INJ 2,000 MG in DEXTROSE 5% 50ML 50 ML IV STA (23:26)
[2017-10-20] MEDS ORDERED: VANCOMYCIN IV 2,500 MG in SODIUM CHLORIDE 0.9% 500ML 500 ML IV STA (23:26)
[2017-10-20 23:29] LABS: BASO % 0.3 %; BASO ABS # 0.02 K/uL (0-0.2); EOS % 0.2 %; EOS ABS # 0.01 K/uL (0-0.5); HEMATOCRIT 40.4 % (37-47); HEMOGLOBIN 13.5 g/dL (12.0-16.0); IG# 0.01 K/uL (0.00-0.02); LYMPH % 17.9 %; LYMPH ABS # 1.19 K/uL (1.2-3.4); MEAN CELL VOLUME 90.8 fL (80-100); MEAN CORPUSCULAR HEMOGLOBIN 30.3 pg (25-34); MEAN CORPUSCULAR HGB CONC 33.4 g/dl (32-36); MEAN PLATELET VOLUME 9.6 fL (7.4-10.4); MONO % 8.9 %; MONO ABS # 0.59 K/uL (0.11-0.59); NEUT % 72.5 %; NEUT ABS # 4.83 K/uL (1.4-6.5); PLATELET COUNT 165 K/uL (130-400); RED CELL DISTRIBUTION WIDTH CV 12.5 % (11.5-14.5); RED CELL DISTRIBUTION WIDTH SD 42.3 fL (36.4-46.3); WHITE BLOOD COUNT 6.65 K/uL (4.8-10.8)
[2017-10-20] MEDS ORDERED: VANCOMYCIN CONSULT ACTIVE PRN (23:30)
[2017-10-20] MEDS ORDERED: AMPICILLIN IV 2,000 MG in SODIUM CHLOR 0.9% AD-VAN 100ML 100 ML IV STA (23:35)
[2017-10-20] MEDS ORDERED: DEXAMETHASONE SOD INJ 4 MG/ML VIAL IV STA (23:35)
--- NOTE | 2017-10-20 23:37 | DIAGNOSTIC IMAGING REPORT ---
SINGLE VIEW CHEST CLINICAL HISTORY: Fever. FINDINGS: An AP, portable, upright chest radiograph is compared to chest x-ray and chest CT dated 07/14/2017. The examination is degraded by portable technique and patient rotation. The cardiomediastinal silhouette is unremarkable. There are low lung volumes with bibasilar atelectasis. No airspace consolidation or large pleural effusion is identified. No pneumothorax is seen. The bony thorax is grossly intact. IMPRESSION: No acute cardiopulmonary abnormality. Electronically signed by: Randy Graham M.D. 10/20/2017 11:36 PM Dictated Date/Time: 10/20/2017 11:34 PM
[2017-10-20] MEDS ORDERED: LIDOCAINE/EPINEPHRINE 1% 20 ML VIAL ONE (23:49)
[2017-10-21] VITALS (7 sets, daily range): BP systolic 107–143; BP diastolic 66–84; PULSE 74–91; TEMP 36.7–38.6; O2SAT 92–97; Ht 170.2 cm; Wt 104.8 kg
[2017-10-21 00:09] LABS: ALBUMIN 3.5 gm/dl (3.4-5.0); ALKALINE PHOSPHATASE 76 U/L (45-117); ALT/SGPT 88 U/L (12-78); BLOOD UREA NITROGEN 15 mg/dl (7-18); CALCIUM 8.2 mg/dl (8.5-10.1); CARBON DIOXIDE 28 mmol/L (21-32); CREATININE 1.18 mg/dl (0.60-1.20); GLUCOSE 120 mg/dl (70-99); PHOSPHORUS 2.1 mg/dl (2.5-4.9); SODIUM 137 mmol/L (136-145); TOTAL PROTEIN 7.6 gm/dl (6.4-8.2)
[2017-10-21 00:28] LABS: INFLUENZA B ANTIGEN Neg for Influ B (NEG)
[2017-10-21 00:42] LABS: CSF GLUCOSE 63 mg/dl (40-70); CSF TOTAL PROTEIN 47.4 mg/dl (15.0-45.0)
[2017-10-21] MEDS ORDERED: OPTIRAY 320 IV PRN (00:45)
[2017-10-21 00:55] LABS: PTT PATIENT 23.7 SECONDS (21.0-31.0)
[2017-10-21 01:07] LABS: POTASSIUM 3.2 mmol/L (3.5-5.1)
[2017-10-21] MEDS ORDERED: MAGNESIUM SULFATE 1GM / D5W 1 GM BAG IV STA (01:15)
[2017-10-21] MEDS ORDERED: POT PHOSPHATE MONOBASIC W/ SOD TAB PO STA (01:15)
[2017-10-21] MEDS ORDERED: PHARMACIST DISCHARGE MED REC CONSULT PRN (02:30)
[2017-10-21] MEDS ORDERED: ONDANSETRON INJ 2 MG/ML 2 ML VIAL IV PRN (02:30)
[2017-10-21 02:33] LABS: MONOSPOT NEG (NEG)
--- NOTE | 2017-10-21 02:36 | History and Physical ---
History & Physical Date & Time of Service: Oct 21, 2017 at 02:34 Chief Complaint: Fever, Unresponsive Episode Primary Care Physician: Paulino Ribeiro, DO History of Present Illness The patient is a 57-year-old female with a past medical history of hypertension , and prediabetes that presents with acute altered mental status and fevers. The patient first began to experience symptoms approximately 1 week ago that began as headaches and intermittent fevers with associated nausea. Earlier in the week her states that she was also complaining of some lower back pain which has since resolved. The patient was initially worked up by her PCP on Tuesday and had an initial workup done including Lyme disease testing. 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 This evening her went to go use the bathroom and tripped over his who was laying face down on the ground. She was unconscious at that time and was making snoring like sounds. He proceeded to flip her over onto her back at which point she began to appear apneic and blue, and due to fear of her stopping to breathe he flipped her back into a prone position and called 911. EMS initially recorded temperature of 39.2 and gave the patient Tylenol en route. The patient continued to be very lethargic and confused en route to the hospital, and appeared to have bit her tongue. During evaluation the patient was very slow to respond and confused and therefore the majority of the history was provided by her . He states that at her baseline she is cognitively sound with no mental deficits. The patient is unable to provide her date of , her current location, or what her profession is. She does appear to respond appropriately to subjective questions, and complains currently of a headache and nausea. She also states that she is having sensitivity to light and feels somewhat feverish. She does spend a significant amount of time outdoors, although has not left the [facility]. She denies any recent sick contacts. Her mother does have a history of stroke in her 70s, and her father has a history of a heart attack. Past Medical/Surgical History Medical Problems: (1) Back pain (2) Chest pain (3) Contusion of knee, left (4) Encephalopathy due to infection (5) HTN (hypertension) (6) Laceration of left knee without foreign body (7) Lung nodule (8) Pulmonary nodule Family History Stroke Social History Smoking Status: Never Smoker Drug Use: none Marital Status: Occupational Status: employed Allergies Coded Allergies: Bacitracin (Unverified Allergy, Intermediate, RASH, 10/21/17) SHE GETS A RASH AND SAYS THE WOUND GETS BIGGER IF SHE USES THIS. Neomycin (Unverified Allergy, Intermediate, RASH, 10/21/17) SHE GETS A RASH AND SAYS THE WOUND GETS BIGGER IF SHE USES THIS. Polymyxin B (Unverified Allergy, Intermediate, RASH, 10/21/17) SHE GETS A RASH AND SAYS THE WOUND GETS BIGGER IF SHE USES THIS. Uncoded Allergies: PLASTIC BAND-AIDS (Adverse Reaction, Intermediate, RASH, 03/23/17) Home Medications Scheduled Aspirin (Aspirin), 325 MG PO DAILY Hydrochlorothiazide (Hydrochlorothiazide), 2 TABS PO DAILY Multivitamin (Multivitamin), 1 TAB PO DAILY Olopatadine Hydrochloride (Pataday), 1 DROPS OP DAILY Review of Systems Constitutional: + fever, + chills, + weakness, + fatigue, No sweats Eyes: + problem reported (photophobia), No diplopia ENT: No nasal symptoms, No sore throat, No tinnitus Respiratory: No cough, No sputum, No wheezing, No shortness of breath, No dyspnea on exertion Cardiovascular: No chest pain, No edema, No palpitations Abdomen: No pain, No nausea, No vomiting, No diarrhea, No constipation Musculoskeletal: No joint pain, No muscle pain, No swelling, No calf pain Genitourinary - Female: No dysuria, No urinary frequency Neurologic: No numbness/tingling, No vertigo, No balance problems Endocrine: + fatigue Integumentary: + rash (Lower legs) Physical Exam Vital Signs Date Time Temp Pulse Resp B/P (MAP) Pulse Ox O2 Delivery O2 Flow Rate FiO2 10/21/17 02:16 37.5 84 20 148/87 98 Room Air 10/21/17 00:52 97 Room Air 10/21/17 00:50 37.2 90 20 138/87 97 Room Air 10/20/17 23:53 102 20 134/90 98 Nasal Cannula 2.0 10/20/17 23:52 94 Nasal Cannula 2.0 10/20/17 23:18 99 10/20/17 23:05 37.2 98 20 134/90 94 Nasal Cannula 2.0 General Appearance: + obese, + pertinent finding (Drowsy, slow to respond) Head: normocephalic, atraumatic Eyes: normal inspection, sclerae normal ENT: + pertinent finding (No lymphadenopathy) Neck: supple, no carotid bruits Respiratory/Chest: chest non-tender, lungs clear, normal breath sounds, no respiratory distress, no accessory muscle use Cardiovascular: regular rate, rhythm, no edema, no gallop, no murmur Abdomen/GI: normal bowel sounds, non tender, soft, no pulsatile mass 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6 7.4-10.4 fL Neutrophils (%) (Auto) 72.5 % Lymphocytes (%) (Auto) 17.9 % Monocytes (%) (Auto) 8.9 % Eosinophils (%) (Auto) 0.2 % Basophils (%) (Auto) 0.3 % Neutrophils # (Auto) 4.83 1.4-6.5 K/uL Lymphocytes # (Auto) 1.19 1.2-3.4 K/uL Monocytes # (Auto) 0.59 0.11-0.59 K/uL Eosinophils # (Auto) 0.01 0-0.5 K/uL Basophils # (Auto) 0.02 0-0.2 K/uL RDW Standard Deviation 42.3 36.4-46.3 fL RDW Coefficient of Variation 12.5 11.5-14.5 % Immature Granulocyte % (Auto) 0.2 % Immature Granulocyte # (Auto) 0.01 0.00-0.02 K/uL Prothrombin Time 10.6 9.0-12.0 SECONDS Prothromb Time International Ratio 1.0 0.9-1.1 Activated Partial Thromboplast Time 23.7 21.0-31.0 SECONDS Partial Thromboplastin Ratio 0.9 Sodium Level 137 136-145 mmol/L Potassium Level 3.5-5.1 mmol/L Chloride Level 101 98-107 mmol/L Carbon Dioxide Level 28 21-32 mmol/L Anion Gap 7.0 3-11 mmol/L Blood Urea Nitrogen 15 7-18 mg/dl Creatinine 1.18 0.60-1.20 mg/dl Est Creatinine Clear Calc Drug Dose 65.0 ml/min Estimated GFR () 59.7 Estimated GFR (Non- 51.5 BUN/Creatinine Ratio 13.1 10-20 Random Glucose 120 70-99 mg/dl Calcium Level 8.2 8.5-10.1 mg/dl Phosphorus Level 2.1 2.5-4.9 mg/dl Magnesium Level 1.8-2.4 mg/dl Total Bilirubin 0.5 0.2-1 mg/dl Aspartate Amino Transf (AST/SGOT) 15-37 U/L Alanine Aminotransferase (ALT/SGPT) 88 12-78 U/L Alkaline Phosphatase 76 45-117 U/L Troponin I < 0.015 0-0.045 ng/ml Pro-B-Type Natriuretic Peptide 51 0-900 pg/ml Total Protein 7.6 6.4-8.2 gm/dl Albumin 3.5 3.4-5.0 gm/dl Globulin 4.1 2.5-4.0 gm/dl Albumin/Globulin Ratio 0.9 0.9-2 Thyroid Stimulating Hormone (TSH) 1.870 0.300-4.500 uIu/ml Bedside Lactic Acid Venous 2.26 0.90-1.70 mmol/L Influenza Type A Antigen Neg for Influ A NEG Influenza Type B Antigen Neg for Influ B NEG CSF Color COLORLESS CSF Appearance CLEAR CSF WBC 4 0-5 /uL CSF RBC 0 0 /uL CSF Xanthrochromic NO XANTHOCHROMIA CSF Cell Count Tube # 4 CSF Chemistry Tube # 2 CSF Glucose 63 40-70 mg/dl CSF Total Protein 47.4 15.0-45.0 mg/dl Test 10/21/17 00:36 10/21/17 00:44 10/21/17 02:20 Range/Units Potassium Level 3.2 3.5-5.1 mmol/L Magnesium Level 1.6 1.8-2.4 mg/dl Aspartate Amino Transf (AST/SGOT) 52 15-37 U/L Procalcitonin 0.06 0-0.5 ng/ml Monoscreen NEG NEG Urine Color YELLOW Urine Appearance CLEAR CLEAR Urine pH 5.5 4.5-7.5 Urine Specific [place] 1.017 1.000-1.030 Urine Protein 1+ NEG Urine Glucose (UA) NEG NEG Urine Ketones NEG NEG Urine Occult Blood NEG NEG Urine Nitrite NEG NEG Urine Bilirubin NEG NEG Urine Urobilinogen NEG NEG Urine Leukocyte Esterase NEG NEG Urine WBC (Auto) 1-5 0-5 /hpf Urine RBC (Auto) 0-4 0-4 /hpf Urine Hyaline Casts (Auto) 10-30 0-5 /lpf Urine Epithelial Cells (Auto) 20-30 0-5 /lpf Urine Bacteria (Auto) NEG NEG Microbiology Results 10/20/17 Blood Culture, Received Pending 10/20/17 Blood Culture, Received Pending 10/21/17 Gram Stain - Preliminary, Resulted 10/21/17 CSF Culture, Resulted Pending 10/21/17 Urine Culture, Received Pending Impression Assessment and Plan The patient is a 57-year-old female with a past medical history of hypertension , and prediabetes that presents with acute altered mental status and fevers Acute Infectious Encephalitis - Altered Mental Status with fevers - CT Head: No acute intracranial abnormalities - Mildly elevated protein on Lumbar Puncture, Normal WBC - MRI Brain ordered - Vancomycin, Rocephin, Ampicillin, Acyclovir - Dexamethasone 10mg q6h - IV NS @ 100 mls/hr - Neuro checks q4 - Neurology Consult - ID Consult - Blood Cultures - CSF Studies: West Nile Virus, VZV, Herpes, Culture - Rapid Lyme Negative, Ehrlichiosis, Anaplasmosis - Monoscreen Negative - UA wnl Hypertension - Hold home HCTZ DVT - SCDs Code Status - Full Resuscitation Resuscitation Status Full Code VTE Prophylaxis Will order VTE Prophylaxis: Yes Resident Tracking Resident Involvement: Resident Care Provided Care Provided: Adult Hospital Medicine History Patient seen and examined, chart reviewed, case discussed with Dr. Denton and I agree with his assessment and plan as documented above. Patient is a 57yo female with history of DM presenting with AMS. She has had intermittent fevers and headache, nausea and back pain for the last week. She was tested for Lyme and empirically started on Doxycycline. This evening her found her passed out facedown on the floor with sonorous respirations, cyanosis and blood in her mouth. He called EMS and she was transported to [facility]. 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 Patient with no complaints. On exam she is afebrile (reported ot be febrile by EMS, Tylenol administered), NAD. She is awake and alert but confused, slow to respond HEENT: NC/AT, PERRL, EOMI, MMM, bruising noted on tip and sides of tongue, neck supple with some pain elicited on flexion Heart: +S1/S2, regular, no m/r/g Lungs: CTA Abd: soft, NT/ND Ext: warm, well perfused, no clubbing/cyanosis or edema Skin: petechial rash noted on legs Labs and images reviewed. Significant for electrolyte abnormalities, low K, Ca , PO4 and Mg. Mildly elevated AST=88, Mildly elevated lactate=2.26. 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 ?viral etiology vs bacterial vs other -CSF studies sent to include WNV, HSV, VZV -Empiric treatment with Vancomycin, Ceftriaxone, Ampicillin and Acyclovir -Check MRI brain -Check EEG -ID consultation -Neurology consultation -Continue HCTZ for HTN -Remainder of plan as above
[2017-10-21] MEDS ORDERED: CEFEPIME IV 2,000 MG in DEXTROSE 5% 100ML 100 ML IV SCH (03:45)
[2017-10-21] MEDS ORDERED: VANCOMYCIN CONSULT ACTIVE PRN (03:45)
[2017-10-21] MEDS ORDERED: GADAVIST IV PRN (03:55)
[2017-10-21] MEDS: SODIUM CHLORIDE 0.9% 1000ML 1,000 ML IV SCH ×3 (05:14→23:58)
[2017-10-21] MEDS: ACYCLOVIR SOD INJ 750 MG in DEXTROSE 5% 250ML 250 ML IV SCH ×3 (05:44→21:43)
[2017-10-21] MEDS: AMPICILLIN IV 2,000 MG in SODIUM CHLOR 0.9% AD-VAN 100ML 100 ML IV SCH ×5 (05:44→21:38)
[2017-10-21] MEDS: DEXAMETHASONE INJ 10 MG in SYRINGE 0 ML IV SCH ×4 (05:45→23:59)
[2017-10-21 06:14] LABS: BASO % 0.2 %; BASO ABS # 0.01 K/uL (0-0.2); HEMATOCRIT 40.6 % (37-47); HEMOGLOBIN 13.5 g/dL (12.0-16.0); IG# 0.01 K/uL (0.00-0.02); LYMPH % 17.7 %; LYMPH ABS # 0.74 K/uL (1.2-3.4); MEAN CORPUSCULAR HEMOGLOBIN 30.3 pg (25-34); MEAN CORPUSCULAR HGB CONC 33.3 g/dl (32-36); MEAN PLATELET VOLUME 9.4 fL (7.4-10.4); MONO % 2.2 %; MONO ABS # 0.09 K/uL (0.11-0.59); NEUT % 79.7 %; NEUT ABS # 3.32 K/uL (1.4-6.5); PLATELET COUNT 163 K/uL (130-400); RED CELL DISTRIBUTION WIDTH CV 12.7 % (11.5-14.5); RED CELL DISTRIBUTION WIDTH SD 42.5 fL (36.4-46.3); WHITE BLOOD COUNT 4.17 K/uL (4.8-10.8)
[2017-10-21 06:28] LABS: HEMOGLOBIN A1C 6.4 % (4.5-5.6)
[2017-10-21 06:50] LABS: CALCIUM 8.1 mg/dl (8.5-10.1); CREATININE 1.14 mg/dl (0.60-1.20); PHOSPHORUS 2.5 mg/dl (2.5-4.9)
--- NOTE | 2017-10-21 06:55 | DIAGNOSTIC IMAGING REPORT ---
HEAD WITHOUT CONTRAST (CT) CT DOSE: 974.03 mGy.cm HISTORY: Mental status change fever, seizure TECHNIQUE: Multiaxial CT images of the head were performed without the use of intravenous contrast. A dose lowering technique was utilized adhering to the principles of ALARA. Comparison: None. Findings: The paranasal sinuses and mastoid air cells are clear. The calvarium and skull base are intact. The ventricles and sulci are within normal limits. There is no mass, hematoma, midline shift, or acute infarct. Impression: No acute intracranial abnormality. The above report was generated using voice recognition software. It may contain grammatical, syntax or spelling errors. Electronically signed by: Tam Morales M.D. 10/21/2017 6:54 AM Dictated Date/Time: 10/21/2017 6:53 AM
--- NOTE | 2017-10-21 06:58 | DIAGNOSTIC IMAGING REPORT ---
CERVICAL SPINE W/O CT DOSE: HISTORY: Trauma fall, seizure TECHNIQUE: Multiaxial CT images of the cervical spine were performed and reformatted in the sagittal and coronal plane without the use of contrast. A dose lowering technique was utilized adhering to the principles of ALARA. COMPARISON: None. FINDINGS: No fractures. No subluxation. Prevertebral soft tissues and the C1-C2 interval are intact. No pneumothorax. IMPRESSION: No fractures within the cervical spine. Moderate degenerative change. The above report was generated using voice recognition software. It may contain grammatical, syntax or spelling errors. Electronically signed by: Tam Morales M.D. 10/21/2017 6:57 AM Dictated Date/Time: 10/21/2017 6:55 AM
--- NOTE | 2017-10-21 07:02 | DIAGNOSTIC IMAGING REPORT ---
ABD/PELVIS IV CONTRAST ONLY CT DOSE: 972.32 mGy.cm HISTORY: Trauma. Pain. Flank pain. left flank contusion, recent n/v TECHNIQUE: Multiaxial CT images of the abdomen and pelvis were performed following the use of intravenous contrast. A dose lowering technique was utilized adhering to the principles of ALARA. COMPARISON STUDY: None. FINDINGS: Lung bases are clear. Liver spleen pancreas are unremarkable. No evidence for free fluid within the abdominal or pelvic region. 3 mm nonobstructing lower pole left renal calcification. Bowel pattern is nonobstructive. Several small calcified uterine fibroids. IMPRESSION: No acute process in the abdomen or pelvis. Incidental findings as noted. The above report was generated using voice recognition software. It may contain grammatical, syntax or spelling errors. Electronically signed by: Tam Morales M.D. 10/21/2017 7:01 AM Dictated Date/Time: 10/21/2017 6:59 AM
--- NOTE | 2017-10-21 07:27 | DIAGNOSTIC IMAGING REPORT ---
Brain MRI WITH AND WITHOUT CONTRAST HISTORY: Possible seizure. Dizziness. Stroke TECHNIQUE: Multiplanar multisequence MRI of the brain was performed both before and after the intravenous administration of contrast. COMPARISON STUDY: Head CT 10/20/2017. FINDINGS: There are no areas of restricted diffusion to suggest acute infarction. The midline structures are intact. The paranasal sinuses are clear. The mastoid air cells are clear. The ventricles and sulci are within normal limits for age. There is no mass, hematoma, midline shift. The major vascular flow-voids at the skull base are well maintained. Postcontrast sequences show no areas of abnormal enhancement. There are few scattered punctate foci of T2 hyperintensity within the white matter of the supratentorial brain. These are nonspecific but favor minimal microvascular ischemic change given the patient's age. The temporal lobes are symmetric. IMPRESSION: No acute intracranial abnormality. Electronically signed by: Dick Riley M.D. 10/21/2017 7:26 AM Dictated Date/Time: 10/21/2017 7:18 AM
[2017-10-21] MEDS: POTASSIUM CHLR 10 MEQ / WTR 100 ML IV SCH ×6 (09:04→19:19)
[2017-10-21] MEDS: ASPIRIN 325 MG ECTAB PO SCH (09:04)
--- NOTE | 2017-10-21 09:53 | EEG Procedure Note ---
EEG Procedure Note Date of Service Oct 21, 2017. Start / End Times Start Time: 0750 End Time: [address] Darlene Jacobsen History 57-year-old with acute encephalopathy and question seizures Home Medication List Scheduled Aspirin (Aspirin), 325 MG PO DAILY Hydrochlorothiazide (Hydrochlorothiazide), 2 TABS PO DAILY Multivitamin (Multivitamin), 1 TAB PO DAILY Olopatadine Hydrochloride (Pataday), 1 DROPS OP DAILY Inpatient Medication List Current Inpatient Medications Medications (Trade) Dose Ordered Sig/Lesa Route Start Time Stop Time Status Last Admin Dose Admin Ioversol (Optiray 320) 100 ml UD PRN IV 10/21/17 00:45 10/25/17 00:44 Sodium Chloride 1,000 ml @ 100 mls/hr Q10H IV 10/21/17 02:20 11/20/17 02:19 10/21/17 05:14 100 MLS/HR Ondansetron HCl (Zofran Inj) 4 mg Q6H PRN IV 10/21/17 02:30 11/20/17 02:29 Miscellaneous Information (Pharmacist Discharge Med Rec Consult) 1 ea UD PRN N/A 10/21/17 02:30 11/20/17 02:29 Vancomycin HCl 2000 mg/Sodium Chloride 540 ml @ 200 mls/hr Q12H IV 10/21/17 12:00 10/31/17 11:59 Vancomycin HCl (Consult) 1 ea UD PRN N/A 10/21/17 03:45 11/20/17 03:44 Ampicillin Sodium 2000 mg/Sodium Chloride 100 ml @ 200 mls/hr Q4H IV 10/21/17 06:00 10/31/17 05:59 10/21/17 05:44 200 MLS/HR Acyclovir Sodium 750 mg/Dextrose 265 ml @ 265 mls/hr Q8H IV 10/21/17 06:00 10/31/17 05:59 10/21/17 05:44 265 MLS/HR Aspirin (Ecotrin Tab) 325 mg DAILY PO 10/21/17 09:00 11/20/17 08:59 10/21/17 09:04 325 MG Gadobutrol (Gadavist) 10 mmol UD PRN IV 10/21/17 03:55 10/25/17 03:54 Dexamethasone Sodium Phosphate 10 mg/Syringe 2.5 ml @ 1 mls/min Q6H IV 10/21/17 06:00 10/24/17 23:59 10/21/17 05:45 1 MLS/MIN Ceftriaxone Sodium 2000 mg/ Dextrose 70 ml @ 100 mls/hr Q12H IV 10/21/17 12:00 10/31/17 11:59 Potassium Chloride 100 ml @ 100 mls/hr Q1H IV 10/21/17 08:30 10/21/17 12:29 10/21/17 09:04 100 MLS/HR Description This is a 21 electrode EEG with a single channel dedicated to limited EKG. The electrodes were placed in accordance with the International 10-20 system. Interpretation The predominant background activity consists of a somewhat irregular 9 hertz rhythm of up to 50-60 microvolts in amplitude seen over the posterior head regions bilaterally spreading anteriorly. There was little attenuation in the background activity with eye opening and alerting procedures. A mild amount of muscle and movement artifact activity contaminate the recording and did not hinder interpretation to any significant degree. Photic stimulation produced no driving response and no abnormalities were noted. Hyperventilation was not performed on this bedside routine EEG. Throughout the recording was the presence of continuous alternating high amplitude faster activity followed by lower amplitude slower activity and of varying frequency but occurring every 1-2 seconds. No abnormal involuntary movements are clinical accompaniment was noted with any of these discharges. Some of the higher amplitude faster discharges had very sharply contorted waveforms in a generalized fashion lasting 200-400 milliseconds. The patient clinically was very confused throughout the recording and a hard time following commands. The alternating higher amplitude faster and lower amplitude slower activity continues throughout the whole recording and patient did not change this rhythm. Overall, this study is abnormal and shows evidence for some neuro multiple disorganization/dysfunction of a generalized nature. In addition there was some sharply contorted waveforms at times that were theoretical E potentially epileptogenic. Clinical Correlation This study is consistent with a [id number] encephalopathy. In addition the generalized sharply contorted waveforms are potentially epileptogenic and clinical correlation is required.
[2017-10-21] MEDS ORDERED: NURSING VERBAL MED ORDER ONE ×3 (10:00→11:15)
--- NOTE | 2017-10-21 10:59 | Neurology Consultation ---
Neurology Consultation Date of Consultation: Oct 21, 2017. Attending Physician: Claude Khan MD Primary Care Physician: Paulino Ribeiro DO Reason for Consultation: Patient is a 57-year-old, was asked to see the request of Dr. Darlene Jacobsen, for neurologic evaluation regarding acute confusion and probable seizure. History of Present Illness Source: patient, caregiver, spouse, clinic records, hospital records Patient has no history of seizures or other neurologic problems. She does have a history of hypertension but no diabetes, heart disease, or strokes. She has no history of significant headaches. 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 Starting about 1 week ago she had the onset of fever headache and fatigue. She had some nausea and dizziness with this as well. By October 17 she went to work as usual but still had the symptoms. Tuesday was very are because the symptoms were worse and Tuesday she can only managed half a day and had to go home. She was seen by her primary care doctor gave her doxycycline. A Lyme titer is pending. She has had intermittent low-grade fevers, a bifrontal headache with some nausea and no vomiting. She has been fatigue and just has felt achy and tired. She was last known to be well around 2030 hours October 20,. The patient's spouse had gone to bed and then woke up around 2200 hours to urinate. When he went to the bathroom he stumbled over her because she was on the ground. She was lying face down on the ground with her underpants at her ankles and urine in the toilet. She had snoring respirations and had had bit her tongue. She was not responding to him and he called EMS. She was found to have an O2 saturation in her 80s. No clonic or tonic movements were noted She arrived to the emergency room on October 20 at 2305 hours with a temperature 37.2, pulse 98, respiratory rate 20, blood pressure 134/90, and O2 saturation 94 percent. She was confused and not responding correctly. Chest x-ray was unremarkable CT scan of the cervical spine showed degenerative changes only CT scan of the head showed no acute changes CT of the abdomen and pelvis showed cholelithiasis. LP had 4 white cells, 0 red cells, glucose of 63, protein of 47. It was clear and colorless and Gram stain was unremarkable. CBC and Chem profile were largely unremarkable Lyme antibody titer and mono spots are pending. TSH was normal 1.8 MRI of the brain showed no acute stroke or changes and a few tiny old nonspecific white matter spots only. There was no enhancement. I reviewed these films and concur that this is a very with nonspecific minimally abnormal scan. She had no seizure activity overnight. Her mental status is still described as confused with memory but she is more awake alert and cooperative. EEG showed some irregular activity with some higher amplitude sharply contoured waveforms occurring in short bursts followed by some lower amplitude slowing irregularly. She had no clinical accompaniment with this but the discharges were in theory potentially epileptogenic. Past Medical/Surgical History Medical Problems: (1) Altered mental status Status: Acute (2) Back pain Status: Acute (3) Chest pain Status: Acute (4) Contusion of knee, left Status: Acute (5) Fever Status: Acute (6) Hypokalemia Status: Acute (7) Hypomagnesemia Status: Acute (8) Laceration of left knee without foreign body Status: Acute (9) Lung nodule Status: Acute (10) Pulmonary nodule Status: Acute (11) Unresponsive episode Status: Acute Hypertension No previous history of surgery Family History Mother, age 80 has history of atrial fibrillation, strokes, and breast cancer. Father, age 80 has congestive heart failure and diabetes Social History Patient used to smoke a few cigarettes occasionally (on social occasions only) but has not smoked for over 20 years. Patient used to be a somewhat heavy alcohol user in the past but has had no alcohol in 30 years. 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 She is frequently outdoors Smoking Status: Former smoker Smokeless Tobacco Use: No Alcohol Use: none Drug Use: none Marital Status: Housing Status: lives with family Occupation Status: employed Allergies Coded Allergies: Bacitracin (Unverified Allergy, Intermediate, RASH, 10/21/17) SHE GETS A RASH AND SAYS THE WOUND GETS BIGGER IF SHE USES THIS. Neomycin (Unverified Allergy, Intermediate, RASH, 10/21/17) SHE GETS A RASH AND SAYS THE WOUND GETS BIGGER IF SHE USES THIS. Polymyxin B (Unverified Allergy, Intermediate, RASH, 10/21/17) SHE GETS A RASH AND SAYS THE WOUND GETS BIGGER IF SHE USES THIS. Uncoded Allergies: PLASTIC BAND-AIDS (Adverse Reaction, Intermediate, RASH, 03/23/17) Current Inpatient Medications Current Inpatient Medications Medications (Trade) Dose Ordered Sig/Lesa Route Start Time Stop Time Status Last Admin Dose Admin Ioversol (Optiray 320) 100 ml UD PRN IV 10/21/17 00:45 10/25/17 00:44 Sodium Chloride 1,000 ml @ 100 mls/hr Q10H IV 10/21/17 02:20 11/20/17 02:19 10/21/17 05:14 100 MLS/HR Ondansetron HCl (Zofran Inj) 4 mg Q6H PRN IV 10/21/17 02:30 11/20/17 02:29 Miscellaneous Information (Pharmacist Discharge Med Rec Consult) 1 ea UD PRN N/A 10/21/17 02:30 11/20/17 02:29 Vancomycin HCl 2000 mg/Sodium Chloride 540 ml @ 200 mls/hr Q12H IV 10/21/17 12:00 10/31/17 11:59 Vancomycin HCl (Consult) 1 ea UD PRN N/A 10/21/17 03:45 11/20/17 03:44 Ampicillin Sodium 2000 mg/Sodium Chloride 100 ml @ 200 mls/hr Q4H IV 10/21/17 06:00 10/31/17 05:59 10/21/17 10:09 200 MLS/HR Acyclovir Sodium 750 mg/Dextrose 265 ml @ 265 mls/hr Q8H IV 10/21/17 06:00 10/31/17 05:59 10/21/17 05:44 265 MLS/HR Aspirin (Ecotrin Tab) 325 mg DAILY PO 10/21/17 09:00 11/20/17 08:59 10/21/17 09:04 325 MG Gadobutrol (Gadavist) 10 mmol UD PRN IV 10/21/17 03:55 10/25/17 03:54 Dexamethasone Sodium Phosphate 10 mg/Syringe 2.5 ml @ 1 mls/min Q6H IV 10/21/17 06:00 10/24/17 23:59 10/21/17 05:45 1 MLS/MIN Ceftriaxone Sodium 2000 mg/ Dextrose 70 ml @ 100 mls/hr Q12H IV 10/21/17 12:00 10/31/17 11:59 Potassium Chloride 100 ml @ 100 mls/hr Q1H IV 10/21/17 08:30 10/21/17 12:29 10/21/17 10:09 100 MLS/HR Review of Systems Constitutional: + fatigue, No weakness Eyes: No worsening of vision, No diplopia ENT: No hearing loss, No sore throat, No trouble swallowing Respiratory: No cough, No shortness of breath Cardiovascular: No chest pain, No palpitations Abdomen: No pain, No nausea Musculoskeletal: No joint pain, No muscle pain Genitourinary - Female: No dysuria, No urinary incontinence Neurologic: + memory loss, No weakness, No numbness/tingling, No vertigo, No balance problems Psychiatric: No depression symptoms, No anxiety Endocrine: + fatigue Hematologic / Lymphatic: No abnormal bleeding/bruising Integumentary: No rash Allergic / Immunologic: No hives Physical Exam Vital Signs (Past 24 Hrs): Date Time Temp Pulse Resp B/P (MAP) Pulse Ox O2 Delivery O2 Flow Rate FiO2 10/21/17 08:30 Room Air 10/21/17 07:18 36.7 91 16 115/66 (82) 95 Room Air 10/21/17 04:15 38.1 91 17 139/84 97 Room Air 10/21/17 02:16 37.5 84 20 148/87 98 Room Air 10/21/17 00:52 97 Room Air 10/21/17 00:50 37.2 90 20 138/87 97 Room Air 10/20/17 23:53 102 20 134/90 98 Nasal Cannula 2.0 10/20/17 23:52 94 Nasal Cannula 2.0 10/20/17 23:18 99 10/20/17 23:05 37.2 98 20 134/90 94 Nasal Cannula 2.0 Patient is right-handed. The patient is awake and alert. Speech does not have dysarthria but has trouble speaking words and phrases. I think this is more due to memory issues than an actual aphasia. Mentation and thought processes are poor with orientation and fund of knowledge. Mood and affect are normal and appropriate. Appearance and grooming are normal. Long and short-term memory are poor, although in testing her she will accurately get answers if their formulated in a yes/no format but can't state the answer otherwise The discs are sharp with positive venous pulsations. There are no exudates, hemorrhages, or blood vessel changes seen. Pupils are 4mm bilaterally and reactive to light. Extraocular eye muscles are intact without nystagmus. Visual acuity and visual winkler seem normal grossly to confrontation. There are no deficits to sensation of the face bilaterally. Corneal reflexes are positive bilaterally. Facial strength and symmetry is normal bilaterally. Hearing seems intact grossly to voice and finger rub. Palate moves well without asymmetry. There is normal sternocleidomastoid and trapezius strength bilaterally. Tongue is midline with good strength bilaterally. Neck is with full range of motion without discomfort. There are no cervical bruits. There are no cranial or ocular bruits. Heart is without murmur. Cervical, thoracic, and lumbar spine are nontender to palpation. Gait is not tested but stance sitting up in bed is normal With outstretched arms there is no drift. There are no resting, postural, or action tremors. There is no ataxia with [id number] testing. There is good facility in the hands. There are no abnormal involuntary movements noted. Motor strength is 5/5 diffusely in the arms bilaterally including deltoids, biceps, brachioradialis, wrist flexors and extensors, lead nurse, and intrinsic hand muscles. Motor strength is 5/5 diffusely in the legs bilaterally including hip flexors, quadriceps, hamstring, gastrocnemius, tibialis anterior, tibialis posterior, and peroneii muscles bilaterally. Toe extensors are normal and there is good bulk in the extensor digitorum brevis muscle bilaterally. The limbs have good tone without rigidity or spasticity, and there is no atrophy noted. Muscle bulk is normal, there is no tenderness, no myotonia noted to percussion, and no fasciculations seen. Sensory examination is intact to pin and touch throughout all four limbs. Reflexes are 1/4 in the biceps, triceps, brachioradialis, quadriceps, and Achilles tendons bilaterally. Toes are downgoing with plantar stimulation bilaterally. Peripheral pulses are present and of normal quality distally in all four limbs. There is no peripheral edema noted. Laboratory Results Past 24 Hours: 10/21/17 05:47 Red Blood Count 4.46, Mean Corpuscular Volume 91.0, Mean Corpuscular Hemoglobin 30.3, Mean Corpuscular Hemoglobin Concent 33.3, Mean Platelet Volume 9.4, Neutrophils (%) (Auto) 79.7, Lymphocytes (%) (Auto) 17.7, Monocytes (%) (Auto) 2.2, Eosinophils (%) (Auto) 0.0, Basophils (%) (Auto) 0.2, Neutrophils # (Auto) 3.32, Lymphocytes # (Auto) 0.74, Monocytes # (Auto) 0.09, Eosinophils # (Auto) 0.00, Basophils # (Auto) 0.01 10/21/17 05:47 Test 10/20/17 23:15 10/20/17 23:22 10/20/17 23:35 10/21/17 00:00 Prothrombin Time 10.6 SECONDS (9.0-12.0) Prothromb Time International Ratio 1.0 (0.9-1.1) Activated Partial Thromboplast Time 23.7 SECONDS (21.0-31.0) Partial Thromboplastin Ratio 0.9 Total Bilirubin 0.5 mg/dl (0.2-1) Alanine Aminotransferase (ALT/SGPT) 88 U/L (12-78) Alkaline Phosphatase 76 U/L (45-117) Troponin I < 0.015 ng/ml (0-0.045) Pro-B-Type Natriuretic Peptide 51 pg/ml (0-900) Total Protein 7.6 gm/dl (6.4-8.2) Albumin 3.5 gm/dl (3.4-5.0) Globulin 4.1 gm/dl (2.5-4.0) Albumin/Globulin Ratio 0.9 (0.9-2) Thyroid Stimulating Hormone (TSH) 1.870 uIu/ml (0.300-4.500) Bedside Lactic Acid Venous 2.26 mmol/L (0.90-1.70) Influenza Type A Antigen Neg for Influ A (NEG) Influenza Type B Antigen Neg for Influ B (NEG) CSF Color COLORLESS CSF Appearance CLEAR CSF WBC 4 /uL (0-5) CSF RBC 0 /uL (0) CSF Xanthrochromic NO XANTHOCHROMIA CSF Cell Count Tube # 4 CSF Chemistry Tube # 2 CSF Glucose 63 mg/dl (40-70) CSF Total Protein 47.4 mg/dl (15.0-45.0) Test 10/21/17 00:36 10/21/17 00:44 10/21/17 05:47 Aspartate Amino Transf (AST/SGOT) 52 U/L (15-37) Total Creatine Kinase 123 U/L (26-192) Procalcitonin 0.06 ng/ml (0-0.5) Lyme Disease IgG Antibody NEG (NEG) Lyme Disease IgM Antibody NEG (NEG) Monoscreen NEG (NEG) Urine Color YELLOW Urine Appearance CLEAR (CLEAR) Urine pH 5.5 (4.5-7.5) Urine Specific [place] 1.017 (1.000-1.030) Urine Protein 1+ (NEG) Urine Glucose (UA) NEG (NEG) Urine Ketones NEG (NEG) Urine Occult Blood NEG (NEG) Urine Nitrite NEG (NEG) Urine Bilirubin NEG (NEG) Urine Urobilinogen NEG (NEG) Urine Leukocyte Esterase NEG (NEG) Urine WBC (Auto) 1-5 /hpf (0-5) Urine RBC (Auto) 0-4 /hpf (0-4) Urine Hyaline Casts (Auto) 10-30 /lpf (0-5) Urine Epithelial Cells (Auto) 20-30 /lpf (0-5) Urine Bacteria (Auto) NEG (NEG) White Blood Count 4.17 K/uL (4.8-10.8) Red Blood Count 4.46 M/uL (4.2-5.4) Hemoglobin 13.5 g/dL (12.0-16.0) Hematocrit 40.6 % (37-47) Mean Corpuscular Volume 91.0 fL (80-100) Mean Corpuscular Hemoglobin 30.3 pg (25-34) Mean Corpuscular Hemoglobin Concent 33.3 g/dl (32-36) Platelet Count 163 K/uL (130-400) Mean Platelet Volume 9.4 fL (7.4-10.4) Neutrophils (%) (Auto) 79.7 % Lymphocytes (%) (Auto) 17.7 % Monocytes (%) (Auto) 2.2 % Eosinophils (%) (Auto) 0.0 % Basophils (%) (Auto) 0.2 % Neutrophils # (Auto) 3.32 K/uL (1.4-6.5) Lymphocytes # (Auto) 0.74 K/uL (1.2-3.4) Monocytes # (Auto) 0.09 K/uL (0.11-0.59) Eosinophils # (Auto) 0.00 K/uL (0-0.5) Basophils # (Auto) 0.01 K/uL (0-0.2) RDW Standard Deviation 42.5 fL (36.4-46.3) RDW Coefficient of Variation 12.7 % (11.5-14.5) Immature Granulocyte % (Auto) 0.2 % Immature Granulocyte # (Auto) 0.01 K/uL (0.00-0.02) Erythrocyte Sedimentation Rate 29 mm/hr (0-21) Anion Gap 10.0 mmol/L (3-11) Est Creatinine Clear Calc Drug Dose 67.8 ml/min Estimated GFR () 62.3 Estimated GFR (Non- 53.7 BUN/Creatinine Ratio 11.4 (10-20) Estimated Average Glucose 137 mg/dl Hemoglobin A1c 6.4 % (4.5-5.6) Calcium Level 8.1 mg/dl (8.5-10.1) Phosphorus Level 2.5 mg/dl (2.5-4.9) Magnesium Level 2.0 mg/dl (1.8-2.4) Imaging Brain MRI WITH AND WITHOUT CONTRAST HISTORY: Possible seizure. Dizziness. Stroke TECHNIQUE: Multiplanar multisequence MRI of the brain was performed both before and after the intravenous administration of contrast. COMPARISON STUDY: Head CT 10/20/2017. FINDINGS: There are no areas of restricted diffusion to suggest acute infarction. The midline structures are intact. The paranasal sinuses are clear. The mastoid air cells are clear. The ventricles and sulci are within normal limits for age. There is no mass, hematoma, midline shift. The major vascular flow-voids at the skull base are well maintained. Postcontrast sequences show no areas of abnormal enhancement. There are few scattered punctate foci of T2 hyperintensity within the white matter of the supratentorial brain. These are nonspecific but favor minimal microvascular ischemic change given the patient's age. The temporal lobes are symmetric. IMPRESSION: No acute intracranial abnormality. Electronically signed by: Dick Riley M.D. 10/21/2017 7:26 AM Dictated Date/Time: 10/21/2017 7:18 AM Impression 1. Altered mental status The patient had an acute encephalopathy in the emergency room. Currently she has memory and word-finding difficulties most consistent with, I believe, a post ictal state. She is already making improvements this morning compared to yesterday. 2. Probable seizure The patient was found face down with decreased responsiveness last evening. I believe that after the patient urinated, she stood up and had a syncopal episode and a secondary seizure with biting her tongue and a significant postictal state. Head trauma with concussion cannot be excluded although there is no obvious trauma about the head. I doubt this was a primary seizure disorder: she has never had seizures before and has no abnormalities on MRI to explain a new onset seizure disorder in a 57- year-old. The EEG shows considerable irritability and, in theory, some potentially epileptogenic activity 3. Abnormal MRI of the brain with a few scattered nonspecific white matter spots. This is likely mild old small vessel ischemia from her history of hypertension Plan 1. Awaiting all CSF cultures. 2. Keppra 500 milligrams IV now and then 500 milligrams twice daily to help prevent seizures. 3. I see no need for additional neurologic testing at this time but increase activity as able. I will follow Overall I spent a total of 65 minutes with this case including records review, review of MRI films, direct evaluation the patient at bedside, and discussion of the case including differential diagnosis and treatment options with the patient herself, her who is present at bedside, Dr. Khan, and clinical staff.
--- NOTE | 2017-10-21 11:09 | Progress Note ---
Progress Note Date of Service Oct 21, 2017. Progress Note ID Consult Dictated #[id number] A/P: 1. Seizure/Encephalopathy 2. Fever -Continue abx, antiviral for now, pending additional cultures -Discussed with neuro -Thank you
[2017-10-21] MEDS ORDERED: LEVETIRACETAM IV 500 MG in DEXTROSE 5% 100ML 100 ML IV ONE (11:30)
[2017-10-21] MEDS ORDERED: ONDANSETRON 8 MG TAB PO SCH (12:00)
[2017-10-21] MEDS: ACETAMINOPHEN 325 MG TAB PO PRN ×3 (12:01→22:00)
[2017-10-21] MEDS: CEFTRIAXONE SOD INJ 2,000 MG in DEXTROSE 5% 50ML 50 ML IV SCH ×2 (12:06→23:58)
--- NOTE | 2017-10-21 12:45 | INFECT. DISEASE CONSULTATION ---
DATE OF CONSULTATION: 10/21/2017 INFECTIOUS DISEASE CONSULT HISTORY OF PRESENT ILLNESS: This is a 57-year-old female who was admitted to the hospital yesterday with change in mental status. Her is at the bedside and provides the majority of her history. He witnessed a seizure yesterday evening and found her on the floor out of bed. He states that prior to this she had been feeling unwell starting over the weekend last weekend. She continued to have clinical deterioration with worsening headache, subjective fevers and some nausea. She was able to work Tuesday and Tuesday. She worked a half-day on Tuesday, did not go to work yesterday and had an acute change in mental status with what he believes was a seizure overnight, an abnormal EEG suspicious for seizure activity. She did undergo an LP as part of her workup in the Emergency Room. She did have a fever of 38.1 on arrival, but has otherwise been afebrile. Her sed rate was mildly elevated at 21, but her white blood cell count was normal. Her ALT was also mildly elevated at 88. UA was negative. CAT scan of the abdomen and pelvis was negative. She has had multiple studies including a Lyme screen and flu swab and mono all of which are negative. She has multiple tick-borne serologies that are pending. Her LP in the Emergency Room had 4 white blood cells, glucose of 63 and a mild elevation of her protein. Gram stain was obtained on her CSF and has no organisms or white cells. Cultures are negative. Blood cultures are also pending at this time. A Lyme PCR was done on her cerebrospinal fluid in addition to West Nile antibodies, herpes PCR is pending. Varicella DNA is pending. West Nile PCR is pending. On examination today, she is lethargic and confused. She does admit to headache, but she is unable to answer any additional questions. She is also unable to recall any events of the week leading up to her hospitalization. 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 The denies any rashes on her skin, any joint effusions or pain. He denies her complaining of any myalgias. They have not removed any ticks. He denies any known mosquito bites. She did have an MRI of the brain yesterday which was unremarkable. She was placed on vancomycin, Rocephin, ampicillin, acyclovir, and dexamethasone and she is tolerating these well. Her states that she did follow with her primary care doctor on Tuesday. Her Lyme screen was negative. Western blot was ordered, but she was given empiric doxycycline in the interim. She took 2 doses prior to her admission yesterday. She currently denies any neck pain. She denies any chest pain or cough. She does admit to headache. She denies any visual changes, but she is unable to answer anything more than yes or no questions at this point. Remaining review of systems is negative. PAST MEDICAL HISTORY: Significant for hypertension and lung nodule. PAST SURGICAL HISTORY: Unremarkable. FAMILY HISTORY: Noncontributory. SOCIAL HISTORY: Negative for tobacco use, alcohol use or drug use. She is and lives with her . She has no sick contact. She has no recent travel. 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. ALLERGIES: SHE HAS ALLERGIES TO TOPICAL ANTIBACTERIAL LOTIONS, BUT NO ANTIBIOTIC ALLERGIES. MEDICATIONS: Vancomycin, Rocephin, aspirin, ampicillin, acyclovir, dexamethasone, Zofran. PHYSICAL EXAMINATION: VITAL SIGNS: She is currently afebrile. Her T-max was 38.1 at 4:00 a.m., pulse 91, respiratory rate 16, blood pressure 115/66. Oxygen saturation is 95-98% on room air. GENERAL: She is awake and alert but remains lethargic. HEENT: Extraocular muscles are intact. Mucous membranes are moist. There is no nuchal rigidity. HEART: Regular. LUNGS: Clear bilaterally. ABDOMEN: Soft, nontender, nondistended. EXTREMITIES: There is no edema. SKIN: Without rash. LABORATORY STUDIES: CBC today, white blood cell count 4.1, hemoglobin 13.5, platelets 163. Sed rate is 29. Chemistry panel: Sodium 140, potassium 3.0, chloride 102, bicarbonate 29, BUN 13, creatinine 1.1, glucose 138. AST is 52 today, ALT was 88 in the ER. Procalcitonin was negative. TSH was within normal limits. UA is negative. LP is as above. Blood and CSF cultures are pending. MRI was negative. CT of the abdomen and pelvis was negative. ASSESSMENT AND PLAN: 1. Encephalopathy, question infection versus a new seizure disorder. She will continue on antibiotics and antivirals pending additional culture data and PCR data. I do not have any contraindication to restarting empiric doxycycline pending tick borne serologies especially with drop in her white blood cell count and minimal transaminitis on admission to the hospital. Thank you for this consultation.
[2017-10-21] MEDS: VANCOMYCIN IV 2,000 MG in SODIUM CHLORIDE 0.9% 500ML 500 ML IV SCH (13:03)
--- NOTE | 2017-10-21 13:09 | Pharmacy Progress Note ---
Pharmacy Abx Initial Consult Date of Service Oct 21, 2017. Pharmacy Dosing Scope Date of Consult: 10/21/17 Consultation requested by: Dr. Denton [facility] is consulted to initiate Vancomycin IV dosing therapy, order appropriate labs and adjust drug dose/frequency. Subjective The patient is a 57 year old female admitted on Oct 21, 2017 at 02:29 with e ncephalopathy, questionable infection versus a new seizure disorder. Patient started on IV Vancomycin, Ampicillin, Ceftriaxone, and Acyclovir pending additional culture data and PCR data. Objective Height (Feet): 5 Height (Inches): 7.00 Weight (Kilograms): 102.300 Vital Signs (Past 12Hrs) Vital Signs Past 12 Hours Date Time Temp Pulse Resp B/P (MAP) Pulse Ox O2 Delivery O2 Flow Rate FiO2 10/21/17 11:06 38.6 85 18 143/80 (101) 93 Room Air 10/21/17 08:30 Room Air 10/21/17 07:18 36.7 91 16 115/66 (82) 95 Room Air 10/21/17 04:15 38.1 91 17 139/84 97 Room Air 10/21/17 02:16 37.5 84 20 148/87 98 Room Air Lab Results (24Hrs) Laboratory Tests (24 Hours) Test 10/21/17 00:36 10/21/17 05:47 Procalcitonin 0.06 ng/ml (0-0.5) Total Creatine Kinase 123 U/L (26-192) Erythrocyte Sedimentation Rate 29 mm/hr (0-21) H White Blood Count 4.17 K/uL (4.8-10.8) L Red Blood Count 4.46 M/uL (4.2-5.4) Hemoglobin 13.5 g/dL (12.0-16.0) Hematocrit 40.6 % (37-47) Mean Corpuscular Volume 91.0 fL (80-100) Mean Corpuscular Hemoglobin 30.3 pg (25-34) Mean Corpuscular Hemoglobin Concent 33.3 g/dl (32-36) Platelet Count 163 K/uL (130-400) Mean Platelet Volume 9.4 fL (7.4-10.4) Neutrophils (%) (Auto) 79.7 % Lymphocytes (%) (Auto) 17.7 % Monocytes (%) (Auto) 2.2 % Eosinophils (%) (Auto) 0.0 % Basophils (%) (Auto) 0.2 % Neutrophils # (Auto) 3.32 K/uL (1.4-6.5) Lymphocytes # (Auto) 0.74 K/uL (1.2-3.4) L Monocytes # (Auto) 0.09 K/uL (0.11-0.59) L Eosinophils # (Auto) 0.00 K/uL (0-0.5) Basophils # (Auto) 0.01 K/uL (0-0.2) Item Value Date Time Creatinine 1.14 mg/dl 10/21/17 0547 Est Creatinine Clear Calc Drug Dose 67.8 ml/min 10/21/17 0547 Micro Results Date/Time Source Procedure Growth Status 10/20/17 23:43 Blood Blood Culture Pending Received 10/20/17 23:15 Blood Blood Culture Pending Received 10/21/17 00:00 Cerebral Spinal Fluid Gram Stain - Final Resulted 10/21/17 00:00 Cerebral Spinal Fluid CSF Culture Pending Resulted 10/21/17 00:44 Urine,Catheterized Urine Culture Pending Received Assessment & Plan Assessment 57 year old female admitted with mental status changes, questionable infection versus new seizure disorder. ID consulted, cultures and serologies are pending. Plan IV Vancomycin, ampicillin, ceftriaxone, and acyclovir for treatment of possible meningitis. Vancomycin IV * Loading dose: 2500 mg (25mg/kg) * Maintenance dose: 2000 mg IV (19.6 mg/kg) every 12 hours * Goal trough level for meningitis : 17 to 20 mcg/mL * Trough level ordered for 10/22/2017 before 1200 dose Pharmacy will continue to follow and will adjust dose/frequency as necessary. Thank you.
[2017-10-21] MEDS: LACTOBACILLUS ACIDOPHILUS (FLORANEX) TAB PO SCH ×2 (13:30→16:38)
--- NOTE | 2017-10-21 16:33 | Family Medicine Progress Note ---
Progress Note Date of Service Oct 21, 2017. Subjective Pt evaluation today including: conversation w/ patient, conversation w/ family , physical exam, chart review, lab review, review of studies, conversation w/ collection systems consultant, review of inpatient medication list Pain: Mild, 3/10 in her posterior neck R>L PO Intake: Good Voiding: no voiding problems Mrs. Panchal is a 57yo F with a PMHx of HTN and prediabetes admitted for altered mental status after being found down on the ground in the middle of the night by her . One week ago she developed a prodrome of feve,r headache, low back ache, and mild nausea without emesis. She saw her PCP Tuesday who sent for a Lyme test, when she was still feeling ill she started empiric doxycycline on Tuesday. Tuesday night her was walking to the bathroom and found her lying on the floor outside the bathroom. She was 'making a snoring like sound'. When he flipped her over onto her back she became apneic and blue. He rolled her back onto her stomach and she began breathing with a snoring-like noise again at which point he called EMS who brought her to the hospital. She bit her tounge at some point and had blood in her mouth. On admission to the ED she was noted to have headache, nausea, photosensitibity. She denied any sick contacts, recent travel outside of [place], and prior history of seizure or syncope. She had various labs drawn (see HPI) and was transferred to inpatient service on broad coverage for infectious encephalitis. Today her is present at the bedside. Mrs. Wallis is able to follow commands and answer questions about her current feelings, but is unable to provide any information that requires memory retrieval. She is not oriented to date, city, state, place, or name. She endorses some pain in the back of her neck and on her head. She denies current feeligns of fever, chills, headache, nausea, abdominal pain. Her endorses one day of a rash by her ankles. Constitutional: + fever, + weakness, + fatigue, No chills, No sweats Eyes: No worsening of vision, No eye pain, No redness, No discharge, No diplopia ENT: No hearing loss, No unusual epistaxis, No nasal symptoms, No sore throat, No tinnitus Respiratory: No cough, No sputum, No wheezing, No shortness of breath, No dyspnea at rest Cardiovascular: No chest pain Abdomen: + nausea, No pain, No vomiting, No diarrhea, No constipation Musculoskeletal: + problem reported (lower back pain, 1 week), No joint pain , No muscle pain Female : No dysuria Neurologic: + memory loss, No weakness, No numbness/tingling, No vertigo, No balance problems Skin: + rash (rash long legs to knees) Medications Current Inpatient Medications Medications (Trade) Dose Ordered Sig/Lesa Route Start Time Stop Time Status Last Admin Dose Admin Ioversol (Optiray 320) 100 ml UD PRN IV 10/21/17 00:45 10/25/17 00:44 Sodium Chloride 1,000 ml @ 100 mls/hr Q10H IV 10/21/17 02:20 11/20/17 02:19 10/21/17 16:35 100 MLS/HR Ondansetron HCl (Zofran Inj) 4 mg Q6H PRN IV 10/21/17 02:30 11/20/17 02:29 Miscellaneous Information (Pharmacist Discharge Med Rec Consult) 1 ea UD PRN N/A 10/21/17 02:30 11/20/17 02:29 Vancomycin HCl 2000 mg/Sodium Chloride 540 ml @ 200 mls/hr Q12H IV 10/21/17 12:00 10/31/17 11:59 10/21/17 13:03 200 MLS/HR Vancomycin HCl (Consult) 1 ea UD PRN N/A 10/21/17 03:45 11/20/17 03:44 Ampicillin Sodium 2000 mg/Sodium Chloride 100 ml @ 200 mls/hr Q4H IV 10/21/17 06:00 10/31/17 05:59 10/21/17 15:09 200 MLS/HR Acyclovir Sodium 750 mg/Dextrose 265 ml @ 265 mls/hr Q8H IV 10/21/17 06:00 10/31/17 05:59 10/21/17 15:09 265 MLS/HR Aspirin (Ecotrin Tab) 325 mg DAILY PO 10/21/17 09:00 11/20/17 08:59 10/21/17 09:04 325 MG Gadobutrol (Gadavist) 10 mmol UD PRN IV 10/21/17 03:55 10/25/17 03:54 Dexamethasone Sodium Phosphate 10 mg/Syringe 2.5 ml @ 1 mls/min Q6H IV 10/21/17 06:00 10/24/17 23:59 10/21/17 11:20 1 MLS/MIN Ceftriaxone Sodium 2000 mg/ Dextrose 70 ml @ 100 mls/hr Q12H IV 10/21/17 12:00 10/31/17 11:59 10/21/17 12:06 100 MLS/HR Acetaminophen (Tylenol Tab) 650 mg Q4H PRN PO 10/21/17 11:30 11/20/17 11:29 10/21/17 12:01 650 MG Levetiracetam (Keppra Tab) 500 mg BID PO 10/21/17 21:00 11/20/17 20:59 Lactobacillus Acidophilus (Floranex Tab) 4 tab TIDM PO 10/21/17 13:30 11/20/17 13:29 Objective Vital Signs Date Time Temp Pulse Resp B/P (MAP) Pulse Ox O2 Delivery O2 Flow Rate FiO2 10/21/17 15:07 37.4 74 18 115/74 (88) 92 Room Air 10/21/17 13:12 38.2 10/21/17 11:06 38.6 85 18 143/80 (101) 93 Room Air 10/21/17 08:30 Room Air 10/21/17 07:18 36.7 91 16 115/66 (82) 95 Room Air 10/21/17 04:15 38.1 91 17 139/84 97 Room Air 10/21/17 02:16 37.5 84 20 148/87 98 Room Air 10/21/17 00:52 97 Room Air 10/21/17 00:50 37.2 90 20 138/87 97 Room Air 10/20/17 23:53 102 20 134/90 98 Nasal Cannula 2.0 10/20/17 23:52 94 Nasal Cannula 2.0 10/20/17 23:18 99 10/20/17 23:05 37.2 98 20 134/90 94 Nasal Cannula 2.0 Physical Exam General Appearance: WD/WN, no apparent distress Eyes: PERRL, EOMI, sclerae normal, funduscopic exam normal ENT: hearing grossly normal Neck: supple, no adenopathy, thyroid normal, no JVD, no carotid bruits, trachea midline Respiratory/Chest: chest non-tender, lungs clear, normal breath sounds Cardiovascular: regular rate, rhythm, no edema, no gallop, no JVD, no murmur Abdomen: normal bowel sounds, non tender, soft Extremities: normal range of motion, non-tender, + pertinent finding (rash, see skin) 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: + aphasia, + disoriented, + pertinent finding (She is not oriented to name, date, place, or city. SHe is able to follow one step commands and can answer questions about her current state, but is unable to provide any historical data or answer questions requiring memory retrieval. She has some prominent aphasia and increased speech latency. Patellar, Achilles, Bicepts DTRs 2+ bilat, no clonus. Sensation intact in all distributions and extremities to soft touch, sharp touch, and cool temperature. Facial strength intact in all distributions. Extremity strength 5/5 without deficits.) Skin: normal color, warm/dry, + rash (pinpoint, blancing, macular spots present on the lower legs bilaterally up to the knees) Lymphatic: no adenopathy Laboratory Results 10/21/17 05:47 Red Blood Count 4.46, Mean Corpuscular Volume 91.0, Mean Corpuscular Hemoglobin 30.3, Mean Corpuscular Hemoglobin Concent 33.3, Mean Platelet Volume 9.4, Neutrophils (%) (Auto) 79.7, Lymphocytes (%) (Auto) 17.7, Monocytes (%) (Auto) 2.2, Eosinophils (%) (Auto) 0.0, Basophils (%) (Auto) 0.2, Neutrophils # (Auto) 3.32, Lymphocytes # (Auto) 0.74, Monocytes # (Auto) 0.09, Eosinophils # (Auto) 0.00, Basophils # (Auto) 0.01 10/21/17 05:47 Test 10/20/17 23:15 10/20/17 23:22 10/20/17 23:35 10/21/17 00:00 Prothrombin Time 10.6 SECONDS (9.0-12.0) Prothromb Time International Ratio 1.0 (0.9-1.1) Activated Partial Thromboplast Time 23.7 SECONDS (21.0-31.0) Partial Thromboplastin Ratio 0.9 Total Bilirubin 0.5 mg/dl (0.2-1) Alanine Aminotransferase (ALT/SGPT) 88 U/L (12-78) Alkaline Phosphatase 76 U/L (45-117) Troponin I < 0.015 ng/ml (0-0.045) Pro-B-Type Natriuretic Peptide 51 pg/ml (0-900) Total Protein 7.6 gm/dl (6.4-8.2) Albumin 3.5 gm/dl (3.4-5.0) Globulin 4.1 gm/dl (2.5-4.0) Albumin/Globulin Ratio 0.9 (0.9-2) Thyroid Stimulating Hormone (TSH) 1.870 uIu/ml (0.300-4.500) Bedside Lactic Acid Venous 2.26 mmol/L (0.90-1.70) Influenza Type A Antigen Neg for Influ A (NEG) Influenza Type B Antigen Neg for Influ B (NEG) CSF Color COLORLESS CSF Appearance CLEAR CSF WBC 4 /uL (0-5) CSF RBC 0 /uL (0) CSF Xanthrochromic NO XANTHOCHROMIA CSF Cell Count Tube # 4 CSF Chemistry Tube # 2 CSF Glucose 63 mg/dl (40-70) CSF Total Protein 47.4 mg/dl (15.0-45.0) Test 10/21/17 00:36 10/21/17 00:44 10/21/17 05:47 Aspartate Amino Transf (AST/SGOT) 52 U/L (15-37) Total Creatine Kinase 123 U/L (26-192) Procalcitonin 0.06 ng/ml (0-0.5) Lyme Disease IgG Antibody NEG (NEG) Lyme Disease IgM Antibody NEG (NEG) Monoscreen NEG (NEG) Urine Color YELLOW Urine Appearance CLEAR (CLEAR) Urine pH 5.5 (4.5-7.5) Urine Specific [place] 1.017 (1.000-1.030) Urine Protein 1+ (NEG) Urine Glucose (UA) NEG (NEG) Urine Ketones NEG (NEG) Urine Occult Blood NEG (NEG) Urine Nitrite NEG (NEG) Urine Bilirubin NEG (NEG) Urine Urobilinogen NEG (NEG) Urine Leukocyte Esterase NEG (NEG) Urine WBC (Auto) 1-5 /hpf (0-5) Urine RBC (Auto) 0-4 /hpf (0-4) Urine Hyaline Casts (Auto) 10-30 /lpf (0-5) Urine Epithelial Cells (Auto) 20-30 /lpf (0-5) Urine Bacteria (Auto) NEG (NEG) White Blood Count 4.17 K/uL (4.8-10.8) Red Blood Count 4.46 M/uL (4.2-5.4) Hemoglobin 13.5 g/dL (12.0-16.0) Hematocrit 40.6 % (37-47) Mean Corpuscular Volume 91.0 fL (80-100) Mean Corpuscular Hemoglobin 30.3 pg (25-34) Mean Corpuscular Hemoglobin Concent 33.3 g/dl (32-36) Platelet Count 163 K/uL (130-400) Mean Platelet Volume 9.4 fL (7.4-10.4) Neutrophils (%) (Auto) 79.7 % Lymphocytes (%) (Auto) 17.7 % Monocytes (%) (Auto) 2.2 % Eosinophils (%) (Auto) 0.0 % Basophils (%) (Auto) 0.2 % Neutrophils # (Auto) 3.32 K/uL (1.4-6.5) Lymphocytes # (Auto) 0.74 K/uL (1.2-3.4) Monocytes # (Auto) 0.09 K/uL (0.11-0.59) Eosinophils # (Auto) 0.00 K/uL (0-0.5) Basophils # (Auto) 0.01 K/uL (0-0.2) RDW Standard Deviation 42.5 fL (36.4-46.3) RDW Coefficient of Variation 12.7 % (11.5-14.5) Immature Granulocyte % (Auto) 0.2 % Immature Granulocyte # (Auto) 0.01 K/uL (0.00-0.02) Erythrocyte Sedimentation Rate 29 mm/hr (0-21) Anion Gap 10.0 mmol/L (3-11) Est Creatinine Clear Calc Drug Dose 67.8 ml/min Estimated GFR () 62.3 Estimated GFR (Non- 53.7 BUN/Creatinine Ratio 11.4 (10-20) Estimated Average Glucose 137 mg/dl Hemoglobin A1c 6.4 % (4.5-5.6) Calcium Level 8.1 mg/dl (8.5-10.1) Phosphorus Level 2.5 mg/dl (2.5-4.9) Magnesium Level 2.0 mg/dl (1.8-2.4) Assessment and Plan The patient is a 57-year-old female with a past medical history of hypertension and prediabetes that presents with acute altered mental status, fevers, and a possible seizure event. Acute Encephalitis/Altered Mental Status - Unclear origin. - CT-H shows no acute abnormalities - LP with mildly elevated protein, cells wnl - Neuro Consulted. Unclear origin of AMS, may be infectious or may have had a hypotensive syncope event and had head injury with secondary seizures. - MRI of the brain with a few scattered nonspecific white matter spots, possibly 2/2 vascular chagnes related to her HTN. - EEG shows an irritable pattern of unclear etiology - Covering broadly for infectious causes (Vanco, ceftriaxone, ampicillin, acyclovir) - Levetiracetam 500mg IV once followed by levetiracetam 500mg PO BID for seizure - + Doxy 100mg BID for tick borne coverage - Dexamethasone 10mg Q6H - Neuro checks Q4H - Infectious studies pending (BCx2, West Nile, Varicella, Herpes, CSF Culture, Erlichia, Anaplasmosis) - Monoscreen and Lyme negative - IVFM NSS 100mL/hr Hypertension - Holding home HCTZ DVT - SCDs Code Status - Full Resuscitation Continued [facility] stay due to: abnormal vital signs, multiple IV medications needed Assessment/Plan Resident Physician Supervision Note: I was present with Dr. Boland during the history and exam. I discussed the case with the resident and agree with the findings and plan as documented in the note. Any exceptions or clarifications are listed here: Pt seen and examined at bedside. Resting comfortably in bed with some pain of the tongue but otherwise denies complaint. Still having persistent word finding difficulty and delayed speech, but answering cogently to questions in present. Difficulty with recall. On examination, S1/S2 nl RRR, CTAB. CNII-XII grossly intact as evaluated, str 5/ 5 bilaterally. Acute encephalitis with word finding and recall difficulties - neurology and ID aware - keppra, dexamethasone, broad abx coverage as noted - follow studies as ordered and monitor closely HTN - holding HCTZ. Monitor
[2017-10-21] MEDS: DOXYCYCLINE HYCLATE 100 MG CAP PO SCH (18:49)
[2017-10-21] MEDS: LEVETIRACETAM 500 MG TAB PO SCH (21:36)
[2017-10-21] MEDS: CALCIUM CARBONATE 500 MG CHEWABLE PO PRN (23:57)
[2017-10-22] VITALS (9 sets, daily range): BP systolic 114–180; BP diastolic 65–94; PULSE 68–88; TEMP 37.3–38.4; O2SAT 91–95
[2017-10-22] MEDS: AMPICILLIN IV 2,000 MG in SODIUM CHLOR 0.9% AD-VAN 100ML 100 ML IV SCH ×5 (01:11→18:08)
[2017-10-22] MEDS: VANCOMYCIN IV 2,000 MG in SODIUM CHLORIDE 0.9% 500ML 500 ML IV SCH ×2 (01:11→12:04)
[2017-10-22] MEDS: DEXAMETHASONE INJ 10 MG in SYRINGE 0 ML IV SCH ×3 (05:48→18:08)
[2017-10-22] MEDS: ACYCLOVIR SOD INJ 750 MG in DEXTROSE 5% 250ML 250 ML IV SCH ×2 (05:48→13:50)
[2017-10-22 06:39] LABS: HEMATOCRIT 35.1 % (37-47); MEAN CELL VOLUME 90.5 fL (80-100); MEAN CORPUSCULAR HEMOGLOBIN 30.9 pg (25-34); MEAN CORPUSCULAR HGB CONC 34.2 g/dl (32-36); MEAN PLATELET VOLUME 9.7 fL (7.4-10.4); PLATELET COUNT 137 K/uL (130-400); RED CELL DISTRIBUTION WIDTH CV 12.7 % (11.5-14.5); RED CELL DISTRIBUTION WIDTH SD 41.7 fL (36.4-46.3)
[2017-10-22 07:04] LABS: IG# 0.03 K/uL (0.00-0.02); LYMPH % 9.7 %; LYMPH ABS # 1.14 K/uL (1.2-3.4); MONO % 5.2 %; MONO ABS # 0.61 K/uL (0.11-0.59); NEUT % 84.8 %; NEUT ABS # 10.02 K/uL (1.4-6.5)
[2017-10-22 07:15] LABS: CALCIUM 7.2 mg/dl (8.5-10.1); CREATININE 1.07 mg/dl (0.60-1.20); POTASSIUM 3.3 mmol/L (3.5-5.1)
[2017-10-22] MEDS: ASPIRIN 325 MG ECTAB PO SCH (07:24)
[2017-10-22] MEDS: LACTOBACILLUS ACIDOPHILUS (FLORANEX) TAB PO SCH ×3 (07:24→15:53)
[2017-10-22] MEDS: LEVETIRACETAM 500 MG TAB PO SCH ×2 (07:24→20:27)
[2017-10-22] MEDS: DOXYCYCLINE HYCLATE 100 MG CAP PO SCH ×2 (07:25→20:26)
--- NOTE | 2017-10-22 08:52 | Neurology Progress Notes ---
Neurology Progress Note Date of Service Oct 22, 2017. Subjective Patient feels well with no headache, confusion, speech problems, dizziness, weakness, numbness, or pain. Nursing reports no new events overnight and she slept well. Laboratory studies show a elevated white count (the patient is on steroids) and chemistry profile shows a mildly low calcium and potassium. Lipid profile was unremarkable. Cultures showed no growth so far. Objective Date Time Temp Pulse Resp B/P (MAP) Pulse Ox O2 Delivery O2 Flow Rate FiO2 10/22/17 07:52 37.3 88 20 122/74 (90) 95 Room Air 10/22/17 03:44 37.5 77 16 114/65 (81) 95 Room Air 10/21/17 23:59 Room Air 10/21/17 23:05 37.4 79 18 118/73 (88) 96 Room Air 10/21/17 20:00 Room Air 10/21/17 19:31 37.1 79 19 107/71 (83) 93 Room Air 10/21/17 15:07 37.4 74 18 115/74 (88) 92 Room Air 10/21/17 13:12 38.2 10/21/17 11:06 38.6 85 18 143/80 (101) 93 Room Air Last 24 Hours Test 10/22/17 06:02 White Blood Count 11.80 K/uL Red Blood Count 3.88 M/uL Hemoglobin 12.0 g/dL Hematocrit 35.1 % Mean Corpuscular Volume 90.5 fL Mean Corpuscular Hemoglobin 30.9 pg Mean Corpuscular Hemoglobin Concent 34.2 g/dl Platelet Count 137 K/uL Mean Platelet Volume 9.7 fL Neutrophils (%) (Auto) 84.8 % Lymphocytes (%) (Auto) 9.7 % Monocytes (%) (Auto) 5.2 % Eosinophils (%) (Auto) 0.0 % Basophils (%) (Auto) 0.0 % Neutrophils # (Auto) 10.02 K/uL Lymphocytes # (Auto) 1.14 K/uL Monocytes # (Auto) 0.61 K/uL Eosinophils # (Auto) 0.00 K/uL Basophils # (Auto) 0.00 K/uL RDW Standard Deviation 41.7 fL RDW Coefficient of Variation 12.7 % Immature Granulocyte % (Auto) 0.3 % Immature Granulocyte # (Auto) 0.03 K/uL Sodium Level 143 mmol/L Potassium Level 3.3 mmol/L Chloride Level 108 mmol/L Carbon Dioxide Level 27 mmol/L Anion Gap 8.0 mmol/L Blood Urea Nitrogen 13 mg/dl Creatinine 1.07 mg/dl Est Creatinine Clear Calc Drug Dose 72.2 ml/min Estimated GFR () 67.2 Estimated GFR (Non- 58.0 BUN/Creatinine Ratio 12.0 Random Glucose 141 mg/dl Calcium Level 7.2 mg/dl Triglycerides Level 102 mg/dl Cholesterol Level 138 mg/dl HDL Cholesterol 36 mg/dl LDL Cholesterol, Calculated 82 mg/dl VLDL Cholesterol, Calculated 20 mg/dl Cholesterol/HDL Ratio 3.8 Exam: She is awake and alert. Speech is without aphasia or dysarthria. There is no hesitancy to her speech and she is very accurate with normal fund of knowledge and full orientation. Long and short-term memory is very good although she has gaps in her memory from the last 24 hours. Extraocular eye muscles are intact without nystagmus. There is no facial droop. Tongue is midline. Neck is supple. Stance sitting up in bed is normal. Coordination is normal in the arms. Strength is symmetrical. There are no abnormal involuntary movements. Current Inpatient Medications Medications (Trade) Dose Ordered Sig/Lesa Route Start Time Stop Time Status Last Admin Dose Admin Ioversol (Optiray 320) 100 ml UD PRN IV 10/21/17 00:45 10/25/17 00:44 Sodium Chloride 1,000 ml @ 100 mls/hr Q10H IV 10/21/17 02:20 11/20/17 02:19 10/21/17 23:58 100 MLS/HR Ondansetron HCl (Zofran Inj) 4 mg Q6H PRN IV 10/21/17 02:30 11/20/17 02:29 Miscellaneous Information (Pharmacist Discharge Med Rec Consult) 1 ea UD PRN N/A 10/21/17 02:30 11/20/17 02:29 Vancomycin HCl 2000 mg/Sodium Chloride 540 ml @ 200 mls/hr Q12H IV 10/21/17 12:00 10/31/17 11:59 10/22/17 01:11 200 MLS/HR Vancomycin HCl (Consult) 1 ea UD PRN N/A 10/21/17 03:45 11/20/17 03:44 Ampicillin Sodium 2000 mg/Sodium Chloride 100 ml @ 200 mls/hr Q4H IV 10/21/17 06:00 10/31/17 05:59 10/22/17 05:48 200 MLS/HR Acyclovir Sodium 750 mg/Dextrose 265 ml @ 265 mls/hr Q8H IV 10/21/17 06:00 10/31/17 05:59 10/22/17 05:48 265 MLS/HR Aspirin (Ecotrin Tab) 325 mg DAILY PO 10/21/17 09:00 11/20/17 08:59 10/22/17 07:24 325 MG Gadobutrol (Gadavist) 10 mmol UD PRN IV 10/21/17 03:55 10/25/17 03:54 Dexamethasone Sodium Phosphate 10 mg/Syringe 2.5 ml @ 1 mls/min Q6H IV 10/21/17 06:00 10/24/17 23:59 10/22/17 05:48 1 MLS/MIN Ceftriaxone Sodium 2000 mg/ Dextrose 70 ml @ 100 mls/hr Q12H IV 10/21/17 12:00 10/31/17 11:59 10/21/17 23:58 100 MLS/HR Acetaminophen (Tylenol Tab) 650 mg Q4H PRN PO 10/21/17 11:30 11/20/17 11:29 10/21/17 22:00 650 MG Levetiracetam (Keppra Tab) 500 mg BID PO 10/21/17 21:00 11/20/17 20:59 10/22/17 07:24 500 MG Lactobacillus Acidophilus (Floranex Tab) 4 tab TIDM PO 10/21/17 13:30 11/20/17 13:29 10/22/17 07:24 4 TAB Doxycycline Hyclate (Vibramycin Cap) 100 mg BID PO 10/21/17 19:00 11/03/17 18:59 10/22/17 07:25 100 MG Calcium Carbonate (Tums Chew Tab) 500 mg PRN PRN PO 10/21/17 23:00 11/20/17 22:59 10/21/17 23:57 500 MG Impression 1. Altered mental status, currently resolved. The patient had an acute encephalopathy in the emergency room. Yesterday, she had memory and word-finding difficulties most consistent with, I believe, a post ictal state. She was already making improvements that morning compared to the day of admission. Today, she has a normal mental status with no evidence for encephalopathy or memory issues. There was no evidence of encephalitis or meningitis by clinical picture, lumbar puncture results, or MRI. 2. Probable seizure and concussion The patient was found face down with decreased responsiveness in the evening October 20 I believe that after the patient urinated, she stood up and had a syncopal episode and had some closed head trauma as there is a left forehead bruise. She then had a secondary seizure with biting her tongue and a significant postictal state. I doubt this was a primary seizure disorder: she has never had seizures before and has no abnormalities on MRI to explain a new onset seizure disorder in a 57- year-old. The EEG showed considerable irritability and, in theory, some potentially epileptogenic activity (all of which could be consistent with a postictal state as well). 3. Abnormal MRI of the brain with a few scattered nonspecific white matter spots. This is likely mild old small vessel ischemia from her history of hypertension Plan 1. Awaiting final CSF cultures. 2. Continue levetiracetam 500 milligrams twice daily for now. 3. Increase activity as able. 4. I see no need for additional neurologic testing or treatment changes at this time. 5. I will defer any antibiotic recommendations to Infectious Disease and her hospitalist. 6. I would like to see this patient back as an outpatient in 1-2 weeks. Until I see her, she should not be involved in any strenuous activity, avoid driving, and excessive work hours. Please contact me if I can be of further assistance on this case otherwise. Overall, I spent a total of 35 minutes with this case including records review, interview and direct evaluation the patient at bedside, and discussion of the case with the patient, her who was at bedside, the clinical staff, and Dr. Khan.
[2017-10-22] MEDS: ACETAMINOPHEN 325 MG TAB PO PRN ×3 (10:07→20:28)
[2017-10-22] MEDS: CEFTRIAXONE SOD INJ 2,000 MG in DEXTROSE 5% 50ML 50 ML IV SCH (11:03)
[2017-10-22] MEDS ORDERED: VANCOMYCIN TROUGH ONE (11:30)
[2017-10-22] MEDS: SODIUM CHLORIDE 0.9% 1000ML 1,000 ML IV SCH (12:05)
--- NOTE | 2017-10-22 15:12 | Family Medicine Progress Note ---
Progress Note Date of Service Oct 22, 2017. Subjective Ms Panchal presented on 10/20 with AMS and loss of consciousness. She had a one week history of fever headache, low back ache, and mild nausea without emesis. She saw her PCP Tuesday who sent for a Lyme test, when she was still feeling ill she started empiric doxycycline on Tuesday. Tuesday night her was walking to the bathroom and found her lying on the floor outside the bathroom. She was 'making a snoring like sound'. When he flipped her over onto her back she became apneic and blue. He rolled her back onto her stomach and she began breathing with a snoring-like noise again at which point he called EMS who brought her to the hospital. She bit her tongue at some point and had blood in her mouth. On admission to the ED she was noted to have headache, nausea, photosensitibity. She denied any sick contacts, recent travel outside of [place], and prior history of seizure or syncope. She had various labs drawn (see HPI) and was transferred to inpatient service on broad coverage for infectious encephalitis. Today her is present at the bedside. Mrs. Wallis has returned to her normal level of mental functioning per both her and her . She is oriented to person, place, time, and situation. She is feeling much better and would love to go home as soon as possible. is concerned about the ams returning. Constitutional: + fever, + weakness, + fatigue, No chills, No sweats Eyes: No worsening of vision, No eye pain, No redness, No discharge, No diplopia ENT: No hearing loss, No unusual epistaxis, No nasal symptoms, No sore throat, No tinnitus Respiratory: No cough, No sputum, No wheezing, No shortness of breath, No dyspnea at rest Cardiovascular: No chest pain Abdomen: + nausea, No pain, No vomiting, No diarrhea, No constipation Musculoskeletal: + problem reported (lower back pain, 1 week), No joint pain , No muscle pain Female : No dysuria Neurologic: + memory loss resolving, No weakness, No numbness/tingling, No vertigo, No balance problems Skin: + rash (rash long legs to knees) Medications Current Inpatient Medications Medications (Trade) Dose Ordered Sig/Lesa Route Start Time Stop Time Status Last Admin Dose Admin Ioversol (Optiray 320) 100 ml UD PRN IV 10/21/17 00:45 10/25/17 00:44 Sodium Chloride 1,000 ml @ 100 mls/hr Q10H IV 10/21/17 02:20 11/20/17 02:19 10/22/17 12:05 100 MLS/HR Ondansetron HCl (Zofran Inj) 4 mg Q6H PRN IV 10/21/17 02:30 11/20/17 02:29 Vancomycin HCl 2000 mg/Sodium Chloride 540 ml @ 200 mls/hr Q12H IV 10/21/17 12:00 10/31/17 11:59 10/22/17 12:04 200 MLS/HR Vancomycin HCl (Consult) 1 ea UD PRN N/A 10/21/17 03:45 11/20/17 03:44 Ampicillin Sodium 2000 mg/Sodium Chloride 100 ml @ 200 mls/hr Q4H IV 10/21/17 06:00 10/31/17 05:59 10/22/17 14:40 200 MLS/HR Acyclovir Sodium 750 mg/Dextrose 265 ml @ 265 mls/hr Q8H IV 10/21/17 06:00 10/31/17 05:59 10/22/17 13:50 265 MLS/HR Aspirin (Ecotrin Tab) 325 mg DAILY PO 10/21/17 09:00 11/20/17 08:59 10/22/17 07:24 325 MG Gadobutrol (Gadavist) 10 mmol UD PRN IV 10/21/17 03:55 10/25/17 03:54 Dexamethasone Sodium Phosphate 10 mg/Syringe 2.5 ml @ 1 mls/min Q6H IV 10/21/17 06:00 10/24/17 23:59 10/22/17 12:08 1 MLS/MIN Ceftriaxone Sodium 2000 mg/ Dextrose 70 ml @ 100 mls/hr Q12H IV 10/21/17 12:00 10/31/17 11:59 10/22/17 11:03 100 MLS/HR Acetaminophen (Tylenol Tab) 650 mg Q4H PRN PO 10/21/17 11:30 11/20/17 11:29 10/22/17 15:17 650 MG Levetiracetam (Keppra Tab) 500 mg BID PO 10/21/17 21:00 11/20/17 20:59 10/22/17 07:24 500 MG Lactobacillus Acidophilus (Floranex Tab) 4 tab TIDM PO 10/21/17 13:30 11/20/17 13:29 10/22/17 15:53 4 TAB Doxycycline Hyclate (Vibramycin Cap) 100 mg BID PO 10/21/17 19:00 11/03/17 18:59 10/22/17 07:25 100 MG Calcium Carbonate (Tums Chew Tab) 500 mg PRN PRN PO 10/21/17 23:00 11/20/17 22:59 10/21/17 23:57 500 MG Objective Vital Signs Date Time Temp Pulse Resp B/P (MAP) Pulse Ox O2 Delivery O2 Flow Rate FiO2 10/22/17 15:42 Room Air 10/22/17 15:00 37.9 78 20 132/74 (93) 93 Room Air 10/22/17 11:18 37.8 10/22/17 10:41 38.4 83 20 125/69 (87) 95 Room Air 10/22/17 08:00 Room Air 10/22/17 07:52 37.3 88 20 122/74 (90) 95 Room Air 10/22/17 03:44 37.5 77 16 114/65 (81) 95 Room Air 10/21/17 23:59 Room Air 10/21/17 23:05 37.4 79 18 118/73 (88) 96 Room Air 10/21/17 20:00 Room Air 10/21/17 19:31 37.1 79 19 107/71 (83) 93 Room Air Physical Exam Notes: General Appearance: WD/WN, no apparent distress Eyes: PERRL, EOMI, sclerae normal, funduscopic exam normal ENT: hearing grossly normal Neck: supple, no adenopathy, thyroid normal, no JVD, no carotid bruits, trachea midline Respiratory/Chest: chest non-tender, lungs clear, normal breath sounds Cardiovascular: regular rate, rhythm, no edema, no gallop, no JVD, no murmur Abdomen: normal bowel sounds, non tender, soft Extremities: normal range of motion, non-tender, + pertinent finding (rash, see skin) 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: Bicepts DTRs 2+ bilat, no clonus. Sensation intact in all distributions and extremities to soft touch, sharp touch, and cool temperature. Facial strength intact in all distributions. Extremity strength 5/ 5 without deficits.) Skin: normal color, warm/dry, + rash (pinpoint, blancing, macular spots present on the lower legs bilaterally up to the knees) Lymphatic: no adenopathy Laboratory Results 10/22/17 06:02 Red Blood Count 3.88, Mean Corpuscular Volume 90.5, Mean Corpuscular Hemoglobin 30.9, Mean Corpuscular Hemoglobin Concent 34.2, Mean Platelet Volume 9.7, Neutrophils (%) (Auto) 84.8, Lymphocytes (%) (Auto) 9.7, Monocytes (%) (Auto) 5.2, Eosinophils (%) (Auto) 0.0, Basophils (%) (Auto) 0.0, Neutrophils # (Auto) 10.02, Lymphocytes # (Auto) 1.14, Monocytes # (Auto) 0.61, Eosinophils # (Auto) 0.00, Basophils # (Auto) 0.00 10/22/17 06:02 Test 10/22/17 06:02 10/22/17 11:26 White Blood Count 11.80 K/uL (4.8-10.8) Red Blood Count 3.88 M/uL (4.2-5.4) Hemoglobin 12.0 g/dL (12.0-16.0) Hematocrit 35.1 % (37-47) Mean Corpuscular Volume 90.5 fL (80-100) Mean Corpuscular Hemoglobin 30.9 pg (25-34) Mean Corpuscular Hemoglobin Concent 34.2 g/dl (32-36) Platelet Count 137 K/uL (130-400) Mean Platelet Volume 9.7 fL (7.4-10.4) Neutrophils (%) (Auto) 84.8 % Lymphocytes (%) (Auto) 9.7 % Monocytes (%) (Auto) 5.2 % Eosinophils (%) (Auto) 0.0 % Basophils (%) (Auto) 0.0 % Neutrophils # (Auto) 10.02 K/uL (1.4-6.5) Lymphocytes # (Auto) 1.14 K/uL (1.2-3.4) Monocytes # (Auto) 0.61 K/uL (0.11-0.59) Eosinophils # (Auto) 0.00 K/uL (0-0.5) Basophils # (Auto) 0.00 K/uL (0-0.2) RDW Standard Deviation 41.7 fL (36.4-46.3) RDW Coefficient of Variation 12.7 % (11.5-14.5) Immature Granulocyte % (Auto) 0.3 % Immature Granulocyte # (Auto) 0.03 K/uL (0.00-0.02) Anion Gap 8.0 mmol/L (3-11) Est Creatinine Clear Calc Drug Dose 72.2 ml/min Estimated GFR () 67.2 Estimated GFR (Non- 58.0 BUN/Creatinine Ratio 12.0 (10-20) Calcium Level 7.2 mg/dl (8.5-10.1) Triglycerides Level 102 mg/dl (0-150) Cholesterol Level 138 mg/dl (0-200) HDL Cholesterol 36 mg/dl LDL Cholesterol, Calculated 82 mg/dl VLDL Cholesterol, Calculated 20 mg/dl Cholesterol/HDL Ratio 3.8 Vancomycin Level Trough 17.9 mcg/ml (SEE COMMENT) Assessment and Plan The patient is a 57-year-old female with a past medical history of hypertension and prediabetes that presents with acute altered mental status, fevers, and a possible seizure event. Acute Encephalitis/Altered Mental Status - Unclear origin. - Neuro : Likely seizure 2/2 syncopal event, AMS a post ictal state. - Covering broadly for infectious causes (Vanc, ceftriaxone, ampicillin, acyclovir) - will step down to oral medications prior to D/C - Doxy 100mg BID for tick borne coverage - levetiracetam 500mg PO BID for seizure - Dexamethasone 10mg Q6H - Neuro checks Q4H - Infectious studies pending (BCx2, West Nile, Varicella, Herpes, CSF Culture, Erlichia, Anaplasmosis) - Monoscreen and Lyme negative - IVFM NSS 100mL/hr Hypertension - Holding home HCTZ DVT - SCDs Code Status - Full Resuscitation Continued [facility] stay due to: abnormal vital signs, multiple IV medications needed Resident Tracking Resident Involvement: Resident Care Provided Care Provided: Adult [facility] Medicine Assessment/Plan Resident Physician Supervision Note: I was present with Dr. Ortiz during the history and exam. I discussed the case with the resident and agree with the findings and plan as documented in the note. Any exceptions or clarifications are listed here: Pt seen and examined at bedside. Resting comfortably in bed, pain in the tongue improving. Cognition has returned to baseline per . Recall normal, historical knowledge normal on discussion and review. Answering questions appropriately and in detail. Making jokes. On examination, CNII-XII grossly intact as evaluated, str 5/5 bilaterally with normal sensation and motor function. nl Reflexes. CTAB. S1/S2 nl RRR, no MCG Acute encephalitis with word finding and recall difficulties - neurology and ID aware - resolved. Discussed in detail with ID and neurology - with negative cultures, minimal CSF findings and persistent fever despite broad abx coverage, agree w/ ID recommendation for tapering IV abx and antivirals. Would continue doxycycline after discussion with family to cover for tickborne disease, as well as PO valacyclovir to cover for viral meningitis with subtle CSF findings. Avoid NSAID use, APAP for fever control. Will monitor overnight and consider discharge if stable in AM HTN - restart home medication regimen.
--- NOTE | 2017-10-22 15:48 | Pharmacy Progress Note ---
Pharmacy Antibiotic Prog Note Date of Service Oct 22, 2017. Subjective The patient is currently receiving vancomycin 2 gm iv q 12 hr The patient is currently on day # 2 of IV therapy. Objective Height (Feet): 5 Height (Inches): 7.00 Weight (Kilograms): 102.300 Levels: Item Value Date Time Vancomycin Level Trough 17.9 mcg/ml 10/22/17 1126 Lab Results (24hrs): Test 10/22/17 06:02 10/22/17 11:26 White Blood Count 11.80 K/uL (4.8-10.8) Red Blood Count 3.88 M/uL (4.2-5.4) Hemoglobin 12.0 g/dL (12.0-16.0) Hematocrit 35.1 % (37-47) Mean Corpuscular Volume 90.5 fL (80-100) Mean Corpuscular Hemoglobin 30.9 pg (25-34) Mean Corpuscular Hemoglobin Concent 34.2 g/dl (32-36) Platelet Count 137 K/uL (130-400) Mean Platelet Volume 9.7 fL (7.4-10.4) Neutrophils (%) (Auto) 84.8 % Lymphocytes (%) (Auto) 9.7 % Monocytes (%) (Auto) 5.2 % Eosinophils (%) (Auto) 0.0 % Basophils (%) (Auto) 0.0 % Neutrophils # (Auto) 10.02 K/uL (1.4-6.5) Lymphocytes # (Auto) 1.14 K/uL (1.2-3.4) Monocytes # (Auto) 0.61 K/uL (0.11-0.59) Eosinophils # (Auto) 0.00 K/uL (0-0.5) Basophils # (Auto) 0.00 K/uL (0-0.2) RDW Standard Deviation 41.7 fL (36.4-46.3) RDW Coefficient of Variation 12.7 % (11.5-14.5) Immature Granulocyte % (Auto) 0.3 % Immature Granulocyte # (Auto) 0.03 K/uL (0.00-0.02) Sodium Level 143 mmol/L (136-145) Potassium Level 3.3 mmol/L (3.5-5.1) Chloride Level 108 mmol/L (98-107) Carbon Dioxide Level 27 mmol/L (21-32) Anion Gap 8.0 mmol/L (3-11) Blood Urea Nitrogen 13 mg/dl (7-18) Creatinine 1.07 mg/dl (0.60-1.20) Est Creatinine Clear Calc Drug Dose 72.2 ml/min Estimated GFR () 67.2 Estimated GFR (Non- 58.0 BUN/Creatinine Ratio 12.0 (10-20) Random Glucose 141 mg/dl (70-99) Calcium Level 7.2 mg/dl (8.5-10.1) Triglycerides Level 102 mg/dl (0-150) Cholesterol Level 138 mg/dl (0-200) HDL Cholesterol 36 mg/dl LDL Cholesterol, Calculated 82 mg/dl VLDL Cholesterol, Calculated 20 mg/dl Cholesterol/HDL Ratio 3.8 Vancomycin Level Trough 17.9 mcg/ml (SEE COMMENT) Micro Results: Item Value Date Time Urine Culture - Preliminary Resulted 10/21/17 0044 Urine,Catheterized NO GROWTH - LESS THAN 1,000 COLONIES/... Gram Stain - Final Resulted 10/21/17 0000 Cerebral Spinal Fluid Blood Culture - Preliminary Resulted 10/20/17 2343 Blood NO GROWTH TO DATE. Blood Culture - Preliminary Resulted 10/20/17 2315 Blood NO GROWTH TO DATE. Assessment & Plan Patient on vancomycin for possible meningitis. ID consulted to follow the patient. Blood cultures are no growth, CSF cx pending. Vancomycin: * Trough level came back therapeutic at ~17 mcg/ml (goal ~20 mcg/ml for meningitis) - drawn before the 3rd maintenance dose, suspect level may continue to increase * Scr improving more and more each day, today at 1.07 mg/dL CrCl ~72 - patient at risk for accumulation since elevated BMI >35 kg/m2 ; therefore will recheck trough tomorrow to ensure not accumulating too quickly * will plan to recheck prior to the 1200 dose tomorrow Pharmacy will continue to follow and will adjust dose/frequency as necessary. Thank you
[2017-10-22] MEDS ORDERED: VALA500T60 PO (18:16)
[2017-10-22] MEDS ORDERED: DXY100 PO (18:16)
--- NOTE | 2017-10-22 18:43 | Discharge Instructions ---
Discharge Instructions Date of Service Oct 22, 2017. Admission Reason for Admission: Encephalopathy Due To Infection Discharge Discharge Diagnosis / Problem: Resolved AMS Discharge Goals Goal(s): Improve function, Increase independence, Diagnostic testing Activity Recommendations Activity Limitations: per Instructions/Follow-up section . Instructions / Follow-Up Instructions / Follow-Up Ms Panchal, Godfrey are being discharged from [facility] for your altered mental status. We have worked you up aggressively for infectious causes and neurologic causes and the most likely explanation we were able to attribute to your symptoms is the theory that it was due to a seizure that followed from a head injury due to an episode of fainting while you were feeling ill. What caused the illness and why it has persisted, we are still investigating. At this time, we have treated you empirically for everything infectious that would give us most concern: meningitis, sepsis, pneumonia, urosepsis. And there is no evidence of any intracranial process occurring. As we continue to evaluate why this happened to you, we would strongly encourage you to meet with your primary care physician on Tuesday or Tuesday of next week so he can knot picker cloth where we left off in trying to mnage and diagnose this condition. Since we are sending you home without a firm diagnosis I would like to provide clear instructions on what to do if your condition changes. For fever and vague discomfort at home treat with tylenol 1 g every 6 hours (2 extra strength tylenol capsules). For fever that doesn't subside with tylenol or any new and concerning symptoms please return to emergency room. For any other symptoms, new but not as troubling symptoms you can contact your primary care provider to manage. We believe you have suffered a concussion, I have provided some handout information on concussions, as well as your new medication of valtrex. If any more of your diagnostic work comes back positive we will inform your primary care doctor and yourself right away. Current Hospital Diet Patient's current hospital diet: AHA Diet (Heart Healthy) Discharge Diet Recommended Diet: Regular Diet Pending Studies Studies pending at discharge: yes List of pending studies: Erlichosis, West Nile, Anaplasmosis Laboratory Results Hemoglobin A1c Test 10/21/17 05:47 Range/Units Estimated Average Glucose 137 mg/dl Hemoglobin A1c 6.4 H 4.5-5.6 % Lipid Panel Test 10/22/17 06:02 Range/Units Triglycerides Level 102 0-150 mg/dl Cholesterol Level 138 0-200 mg/dl HDL Cholesterol 36 mg/dl Cholesterol/HDL Ratio 3.8 LDL Cholesterol, Calculated 82 mg/dl Medical Emergencies . Who to Call and When: Medical Emergencies: If at any time you feel your situation is an emergency, please call 911 immediately. . Non-Emergent Contact Non-Emergency issues call your: Primary Care Provider . . "Provider Documentation" section prepared by Real Ortiz. . Resident Tracking Resident Involvement: Resident Care Provided Care Provided: Adult Hospital Medicine
[2017-10-22] MEDS ORDERED: LEVE500T13 PO (20:02)
[2017-10-23] VITALS (8 sets, daily range): BP systolic 138–160; BP diastolic 60–91; PULSE 70–109; TEMP 37–39.2; O2SAT 90–95
[2017-10-23] MEDS: ACETAMINOPHEN 325 MG TAB PO PRN ×3 (03:31→13:01)
[2017-10-23 07:34] LABS: BASO % 0.1 %; BASO ABS # 0.01 K/uL (0-0.2); HEMATOCRIT 35.3 % (37-47); HEMOGLOBIN 11.8 g/dL (12.0-16.0); IG# 0.07 K/uL (0.00-0.02); LYMPH % 9.8 %; LYMPH ABS # 1.52 K/uL (1.2-3.4); MEAN CELL VOLUME 90.7 fL (80-100); MEAN CORPUSCULAR HEMOGLOBIN 30.3 pg (25-34); MEAN CORPUSCULAR HGB CONC 33.4 g/dl (32-36); MEAN PLATELET VOLUME 10.3 fL (7.4-10.4); MONO % 8.3 %; MONO ABS # 1.29 K/uL (0.11-0.59); NEUT % 81.3 %; NEUT ABS # 12.64 K/uL (1.4-6.5); PLATELET COUNT 147 K/uL (130-400); RED CELL DISTRIBUTION WIDTH CV 12.9 % (11.5-14.5); RED CELL DISTRIBUTION WIDTH SD 42.6 fL (36.4-46.3); WHITE BLOOD COUNT 15.53 K/uL (4.8-10.8)
[2017-10-23] MEDS: ASPIRIN 325 MG ECTAB PO SCH (07:47)
[2017-10-23] MEDS: LACTOBACILLUS ACIDOPHILUS (FLORANEX) TAB PO SCH ×3 (07:47→16:45)
[2017-10-23] MEDS: LEVETIRACETAM 500 MG TAB PO SCH (07:47)
[2017-10-23] MEDS: DOXYCYCLINE HYCLATE 100 MG CAP PO SCH (07:47)
--- NOTE | 2017-10-23 08:00 | Progress Note ---
Subjective Date of Service: Oct 23, 2017. Subjective Pt evaluation today including: conversation w/ patient, conversation w/ family , physical exam, chart review, lab review pt seen in followup, spoke with primary service yesterday, pt was improved and anxious for d/c. all cultures negative, her IV abx were stopped and she was to be d/c on po valtrex (HSV pcr pending) and doxy for ? tick borne illness, lyme screen negative, serologies pending. She had fever this am per , 38.9. She is much more alert this morning, no rigors. denies peterson. no cough, sob, cp, n/ v/d, abd pain, no gu symptoms. is concerned she could have lymphoma due to increased wbc. all remaining ros reviewed and are negative. He does not want to take her home as he feels anxious that her mental state with deteriorate. Problem List Medical Problems: (1) Altered mental status Status: Acute (2) Back pain Status: Acute (3) Chest pain Status: Acute (4) Contusion of knee, left Status: Acute (5) Fever Status: Acute (6) Hypokalemia Status: Acute (7) Hypomagnesemia Status: Acute (8) Laceration of left knee without foreign body Status: Acute (9) Lung nodule Status: Acute (10) Pulmonary nodule Status: Acute (11) Unresponsive episode Status: Acute Objective Vital Signs Date Time Temp Pulse Resp B/P (MAP) Pulse Ox O2 Delivery O2 Flow Rate FiO2 10/23/17 07:44 38.9 75 18 157/87 (110) 92 Room Air 10/23/17 03:27 38.5 70 19 156/86 (109) 90 Room Air 10/22/17 23:59 Room Air 10/22/17 23:15 37.4 75 18 165/94 (117) 92 Room Air 10/22/17 19:05 37.3 10/22/17 19:05 37.5 68 18 180/77 (111) 91 Room Air 10/22/17 16:46 37.9 10/22/17 16:00 37.9 10/22/17 15:42 Room Air 10/22/17 15:00 37.9 78 20 132/74 (93) 93 Room Air 10/22/17 11:18 37.8 8/18/18 10:41 38.4 83 20 125/69 (87) 95 Room Air 10/22/17 08:00 Room Air Physical Exam General Appearance: WD/WN, no apparent distress Eyes: normal inspection, EOMI Neck: supple Respiratory/Chest: lungs clear, normal breath sounds, no respiratory distress Cardiovascular: regular rate, rhythm, no edema Abdomen: non tender, soft Extremities: non-tender, no pedal edema 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: alert, normal mood/affect Skin: normal color Laboratory Results Item Value Date Time Blood Culture - Preliminary Resulted 10/20/17 2315 Blood NO GROWTH TO DATE. Blood Culture - Preliminary Resulted 10/20/17 2343 Blood NO GROWTH TO DATE. Gram Stain - Final Resulted 10/21/17 0000 Cerebral Spinal Fluid Urine Culture - Preliminary Resulted 10/21/17 0044 Urine,Catheterized NO GROWTH - LESS THAN 1,000 COLONIES/... Last 24 Hours Test 10/22/17 11:26 10/23/17 06:44 Vancomycin Level Trough 17.9 mcg/ml White Blood Count 15.53 K/uL Red Blood Count 3.89 M/uL Hemoglobin 11.8 g/dL Hematocrit 35.3 % Mean Corpuscular Volume 90.7 fL Mean Corpuscular Hemoglobin 30.3 pg Mean Corpuscular Hemoglobin Concent 33.4 g/dl Platelet Count 147 K/uL Mean Platelet Volume 10.3 fL Neutrophils (%) (Auto) 81.3 % Lymphocytes (%) (Auto) 9.8 % Monocytes (%) (Auto) 8.3 % Eosinophils (%) (Auto) 0.0 % Basophils (%) (Auto) 0.1 % Neutrophils # (Auto) 12.64 K/uL Lymphocytes # (Auto) 1.52 K/uL Monocytes # (Auto) 1.29 K/uL Eosinophils # (Auto) 0.00 K/uL Basophils # (Auto) 0.01 K/uL RDW Standard Deviation 42.6 fL RDW Coefficient of Variation 12.9 % Immature Granulocyte % (Auto) 0.5 % Immature Granulocyte # (Auto) 0.07 K/uL Assessment and Plan (1) Fever Assessment & Plan: all cultures negative, doubt bacterial source. could be viral in nature vs tick borne. would continue valtrex and doxy. concerned this could be early lyme disease and was concerned she is not being treated, I assured him she is receiving doxy, would suggest 28 day course. I suspect her wbc is increased due to IV steroids given on admission. continue to follow. will repeat blood cultures at this time but would also include non infectious sources as cause for fever as well, especially with recent seizure. Continued [facility] stay due to: abnormal vital signs, multiple IV medications needed
[2017-10-23 08:09] LABS: CALCIUM 7.3 mg/dl (8.5-10.1); POTASSIUM 3.1 mmol/L (3.5-5.1)
[2017-10-23] MEDS ORDERED: CEFTRIAXONE SOD INJ 1 GM in DEXTROSE 5% ADD-VANTAGE 50ML 50 ML IV SCH (09:00)
[2017-10-23] MEDS ORDERED: CEFTRIAXONE SOD INJ 2 GM in DEXTROSE 5% ADD-VANTAGE 50ML 50 ML IV SCH (10:00)
--- NOTE | 2017-10-23 10:03 | DIAGNOSTIC IMAGING REPORT ---
CHEST 2 VIEWS ROUTINE CLINICAL HISTORY: Cough. Fever. COMPARISON STUDY: Chest CT July 14, 2017 and chest radiograph October 20, 2017. FINDINGS: There is no pneumothorax. There are trace bilateral pleural effusions. Mild elevation of the right hemidiaphragm is unchanged. Mild interlobular septal thickening suggests pulmonary edema. Cardiomediastinal silhouette is stable. No consolidation is identified. IMPRESSION: 1. Interstitial thickening suggestive of mild pulmonary edema. 2. Trace bilateral pleural effusions. Electronically signed by: Hector Lee M.D. 10/23/2017 10:01 AM Dictated Date/Time: 10/23/2017 10:00 AM
[2017-10-23] MEDS ORDERED: VANCOMYCIN TROUGH ONE (11:30)
[2017-10-23] MEDS ORDERED: POTASSIUM CHLORIDE 20 MEQ TABCR PO SCH (12:45)
[2017-10-23] MEDS ORDERED: POTASSIUM CHLR 10 MEQ / WTR 100 ML IV SCH (13:00)
[2017-10-23 13:22] LABS: PHOSPHORUS 1.9 mg/dl (2.5-4.9)
--- NOTE | 2017-10-23 13:31 | Family Medicine Progress Note ---
Progress Note Date of Service Oct 23, 2017. Subjective Pt evaluation today including: conversation w/ patient, conversation w/ family , physical exam, chart review, lab review, review of studies, conversation w/ statistical consultant, review of inpatient medication list Ms Panchal presented on 10/20 with AMS and loss of consciousness. Today her is present at the bedside. Mrs. Wallis has returned to her normal level of mental functioning per both her and her , however they are very concerned about her continuing illness and fever. They are reticent to return home with a worsening fever of unknown origin Today she complains of chills, feelings of being very hot followed by very cold, lack of sleep, and polydipsia. She has no altered mental status or confusion at this time. Review of Systems Constitutional: + fever, + weakness, + fatigue, No chills, No sweats Eyes: No worsening of vision, No eye pain, No redness, No discharge, No diplopia ENT: No hearing loss, No unusual epistaxis, No nasal symptoms, No sore throat, No tinnitus Respiratory: No cough, No sputum, No wheezing, No shortness of breath, No dyspnea at rest Cardiovascular: No chest pain Abdomen: + nausea, No pain, No vomiting, No diarrhea, No constipation Musculoskeletal: + problem reported (lower back pain, 1 week), No joint pain , No muscle pain Female : No dysuria Neurologic: + memory loss resolving, No weakness, No numbness/tingling, No vertigo, No balance problems Skin: + rash (rash long legs to knees) Medications Current Inpatient Medications Medications (Trade) Dose Ordered Sig/Lesa Route Start Time Stop Time Status Last Admin Dose Admin Aspirin (Ecotrin Tab) 325 mg DAILY PO 10/21/17 09:00 11/20/17 08:59 10/23/17 07:47 325 MG Acetaminophen (Tylenol Tab) 650 mg Q4H PRN PO 10/21/17 11:30 11/20/17 11:29 10/23/17 13:01 650 MG Levetiracetam (Keppra Tab) 500 mg BID PO 10/21/17 21:00 11/20/17 20:59 10/23/17 07:47 500 MG Lactobacillus Acidophilus (Floranex Tab) 4 tab TIDM PO 10/21/17 13:30 11/20/17 13:29 10/23/17 12:46 4 TAB Doxycycline Hyclate (Vibramycin Cap) 100 mg BID PO 10/21/17 19:00 11/03/17 18:59 10/23/17 07:47 100 MG Calcium Carbonate (Tums Chew Tab) 500 mg PRN PRN PO 10/21/17 23:00 11/20/17 22:59 10/21/17 23:57 500 MG Valacyclovir HCl (Valtrex Tab) 1,000 mg TID PO 10/22/17 21:00 11/01/17 20:59 10/23/17 07:47 1,000 MG Ceftriaxone Sodium 2 gm/ Dextrose 50 ml @ 100 mls/hr Q24H IV 10/23/17 10:00 10/25/17 09:59 10/23/17 10:20 100 MLS/HR Potassium Chloride (Klor-Con Tab) 20 meq BID PO 10/23/17 12:45 10/24/17 12:44 Objective Vital Signs Date Time Temp Pulse Resp B/P (MAP) Pulse Ox O2 Delivery O2 Flow Rate FiO2 10/23/17 12:56 39.1 78 24 152/83 (106) 92 Room Air 10/23/17 08:00 Room Air 10/23/17 07:44 38.9 75 18 157/87 (110) 92 Room Air 10/23/17 03:27 38.5 70 19 156/86 (109) 90 Room Air 10/22/17 23:59 Room Air 10/22/17 23:15 37.4 75 18 165/94 (117) 92 Room Air 10/22/17 19:05 37.3 10/22/17 19:05 37.5 68 18 180/77 (111) 91 Room Air 10/22/17 16:46 37.9 10/22/17 16:00 37.9 10/22/17 15:42 Room Air 10/22/17 15:00 37.9 78 20 132/74 (93) 93 Room Air Physical Exam General Appearance: WD/WN, + mild distress Eyes: normal inspection, EOMI ENT: normal ENT inspection, hearing grossly normal, pharynx normal Respiratory/Chest: chest non-tender, lungs clear, normal breath sounds, no respiratory distress, no accessory muscle use, + stridor (Recorded by while sleeping) Cardiovascular: regular rate, rhythm, no edema, no gallop, no JVD, no murmur Abdomen: normal bowel sounds, non tender, soft, no organomegaly Extremities: normal range of motion 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: 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, no motor/sensory deficits, alert, normal mood/affect, oriented x 3 Skin: normal color, warm/dry Lymphatic: no adenopathy Laboratory Results 10/23/17 06:44 Red Blood Count 3.89, Mean Corpuscular Volume 90.7, Mean Corpuscular Hemoglobin 30.3, Mean Corpuscular Hemoglobin Concent 33.4, Mean Platelet Volume 10.3, Neutrophils (%) (Auto) 81.3, Lymphocytes (%) (Auto) 9.8, Monocytes (%) (Auto) 8.3, Eosinophils (%) (Auto) 0.0, Basophils (%) (Auto) 0.1, Neutrophils # (Auto) 12.64, Lymphocytes # (Auto) 1.52, Monocytes # (Auto) 1.29, Eosinophils # (Auto) 0.00, Basophils # (Auto) 0.01 10/23/17 06:44 Test 10/23/17 06:44 10/23/17 08:25 White Blood Count 15.53 K/uL (4.8-10.8) Red Blood Count 3.89 M/uL (4.2-5.4) Hemoglobin 11.8 g/dL (12.0-16.0) Hematocrit 35.3 % (37-47) Mean Corpuscular Volume 90.7 fL (80-100) Mean Corpuscular Hemoglobin 30.3 pg (25-34) Mean Corpuscular Hemoglobin Concent 33.4 g/dl (32-36) Platelet Count 147 K/uL (130-400) Mean Platelet Volume 10.3 fL (7.4-10.4) Neutrophils (%) (Auto) 81.3 % Lymphocytes (%) (Auto) 9.8 % Monocytes (%) (Auto) 8.3 % Eosinophils (%) (Auto) 0.0 % Basophils (%) (Auto) 0.1 % Neutrophils # (Auto) 12.64 K/uL (1.4-6.5) Lymphocytes # (Auto) 1.52 K/uL (1.2-3.4) Monocytes # (Auto) 1.29 K/uL (0.11-0.59) Eosinophils # (Auto) 0.00 K/uL (0-0.5) Basophils # (Auto) 0.01 K/uL (0-0.2) RDW Standard Deviation 42.6 fL (36.4-46.3) RDW Coefficient of Variation 12.9 % (11.5-14.5) Immature Granulocyte % (Auto) 0.5 % Immature Granulocyte # (Auto) 0.07 K/uL (0.00-0.02) Anion Gap 9.0 mmol/L (3-11) Est Creatinine Clear Calc Drug Dose 77.0 ml/min Estimated GFR () 72.9 Estimated GFR (Non- 62.9 BUN/Creatinine Ratio 19.6 (10-20) Calcium Level 7.3 mg/dl (8.5-10.1) Assessment and Plan The patient is a 57-year-old female with a past medical history of hypertension and prediabetes that presents with acute altered mental status, fevers, and a possible seizure event. Acute Encephalitis/Altered Mental Status - Unclear origin - Neuro : Likely seizure 2/2 syncopal event, AMS a post ictal state. - On oral valtrex and doxycycline. Added IV Rochephin today for possible tick born meningitis coverage. - Doxy 100mg BID for tick borne coverage - levetiracetam 500mg PO BID for seizure - Infectious studies pending (BCx2, West Nile, Varicella, Herpes, CSF Culture, Erlichia, Anaplasmosis) - Monoscreen and Lyme negative Fever - Unknown cause lasting for about 10 days, has not responded to antibiotics. - Patient is clinically worsening, feeling unwell and spiking fevers consistently 39.1 at last measurement. Hypokalemia - 3.1 today - Oral replacement 40 mEq - Checking Magnesium levels - Continue to monitor Hypocalcemia - 7.7 corrected calcium, replacing with oral calcium carbonate tablets and vitamin D - Will continue to monitor Hypertension - Holding home HCTZ DVT - SCDs Code Status - Full Resuscitation Resident Tracking Resident Involvement: Resident Care Provided Care Provided: Adult [facility] Assessment/Plan Resident Physician Supervision Note: I was present with Dr. Ortiz during the history and exam. I discussed the case with the resident and agree with the findings and plan as documented in the note. Any exceptions or clarifications are listed here: Pt seen and examined at bedside. On initial evaluation today, patient reports recurrent fever overnight requiring ibuprofen as well as persistent fatigue. Mental status is unchanged per and patient. 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 No previous symptoms reported, though reports did feel somewhat lightheaded prior to original episode which led to admission. On examination, CNII-XII grossly intact as evaluated, str 5/5 bilaterally with normal sensation and motor function. nl Reflexes. CTAB. S1/S2 nl RRR, no MCG Febrile illness of unknown origin - repeat cultures this AM. Add IV cefriaxone. Continue PO doxy and PO valacyclovir Acute encephalitis with word finding and recall difficulties - neurology and ID aware - resolved. HTN - restart home medication regimen. Called to bedside at 1400 for new onset nausea vomiting and persistent fever, as well as accompanying feeling of lightheadedness following emesis and diffuse myalgias/arthralgias without rash or swelling. Examination is relatively unchanged from the AM. Add IV zofran 8mg q6, vancomycin. Convert PO valacylovir to IV acyclovir. Restart IVF and bolus 500cc. Monitor VS closely. Transfer to private room.
[2017-10-23] MEDS ORDERED: ONDANSETRON INJ 2 MG/ML 2 ML VIAL IV PRN ×2 (14:00→15:30)
[2017-10-23] MEDS ORDERED: ONDANSETRON INJ 2 MG/ML 2 ML VIAL ONE (14:27)
[2017-10-23] MEDS ORDERED: VANCOMYCIN CONSULT ACTIVE PRN (15:15)
[2017-10-23] MEDS ORDERED: ONDANSETRON INJ 2 MG/ML 2 ML VIAL IV STA (15:19)
[2017-10-23] MEDS ORDERED: SODIUM CHLORIDE 0.9% 500ML 500 ML IV ONE (15:30)
[2017-10-23] MEDS ORDERED: ONDANSETRON INJ 8 MG in DEXTROSE 5% 50ML 50 ML IV PRN (15:45)
--- NOTE | 2017-10-23 16:29 | Pharmacy Progress Note ---
Pharmacy Antibiotic Consult Date of Service: Oct 23, 2017. Pharmacy Dosing Scope Pharmacy is consulted to initiate vancomycin IV dosing therapy, order appropriate labs and adjust drug dose/frequency. Subjective The patient is a 57 year old female admitted on Oct 21, 2017 at 02:29. Objective Height (Feet): 5 Height (Inches): 7.00 Weight (Kilograms): 101.600 Lab Results (24hrs): Test 10/23/17 06:44 10/23/17 08:25 White Blood Count 15.53 K/uL (4.8-10.8) Red Blood Count 3.89 M/uL (4.2-5.4) Hemoglobin 11.8 g/dL (12.0-16.0) Hematocrit 35.3 % (37-47) Mean Corpuscular Volume 90.7 fL (80-100) Mean Corpuscular Hemoglobin 30.3 pg (25-34) Mean Corpuscular Hemoglobin Concent 33.4 g/dl (32-36) Platelet Count 147 K/uL (130-400) Mean Platelet Volume 10.3 fL (7.4-10.4) Neutrophils (%) (Auto) 81.3 % Lymphocytes (%) (Auto) 9.8 % Monocytes (%) (Auto) 8.3 % Eosinophils (%) (Auto) 0.0 % Basophils (%) (Auto) 0.1 % Neutrophils # (Auto) 12.64 K/uL (1.4-6.5) Lymphocytes # (Auto) 1.52 K/uL (1.2-3.4) Monocytes # (Auto) 1.29 K/uL (0.11-0.59) Eosinophils # (Auto) 0.00 K/uL (0-0.5) Basophils # (Auto) 0.01 K/uL (0-0.2) RDW Standard Deviation 42.6 fL (36.4-46.3) RDW Coefficient of Variation 12.9 % (11.5-14.5) Immature Granulocyte % (Auto) 0.5 % Immature Granulocyte # (Auto) 0.07 K/uL (0.00-0.02) Sodium Level 140 mmol/L (136-145) Potassium Level 3.1 mmol/L (3.5-5.1) Chloride Level 105 mmol/L (98-107) Carbon Dioxide Level 26 mmol/L (21-32) Anion Gap 9.0 mmol/L (3-11) Blood Urea Nitrogen 20 mg/dl (7-18) Creatinine 1.00 mg/dl (0.60-1.20) Est Creatinine Clear Calc Drug Dose 77.0 ml/min Estimated GFR () 72.9 Estimated GFR (Non- 62.9 BUN/Creatinine Ratio 19.6 (10-20) Random Glucose 109 mg/dl (70-99) Calcium Level 7.3 mg/dl (8.5-10.1) Phosphorus Level 1.9 mg/dl (2.5-4.9) Magnesium Level 1.6 mg/dl (1.8-2.4) Assessment & Plan Patient restarted on vancomycin due to persistent fever. ID currently following the patient. Concern for possible meningitis on admission Vancomycin: * Last dose of vancomycin was 8-18 @1200 - would estimate that level around ~7 ( <10), will resume previous dosing rather than collect random at this time so that therapy not delayed. * Patient also at risk of drug accumulation so feel that level may be higher - previous dosing aggressive due to severity of infection * Will plan to obtain a level prior to the 0400 dose to assess if there has been accumulation - feel that this regimen may be too aggressive * Scr also improving since admission, today ~1 mg/dL (CrCl ~77) * Estimated kinetics: t1/2~10 hr, ke~0.06 Pharmacy will continue to follow and will adjust dose/frequency as necessary. Thank you
[2017-10-23] MEDS: VANCOMYCIN IV 2,000 MG in SODIUM CHLORIDE 0.9% 500ML 500 ML IV SCH (16:35)
[2017-10-23] MEDS: POTASSIUM CHLORIDE INJ 40 MEQ in SODIUM CHLORIDE 0.9% 1000ML 1,000 ML IV SCH (16:36)
[2017-10-23] MEDS: ACETAMINOPHEN IV 100 ML IV PRN (16:59)
[2017-10-23] MEDS: ACYCLOVIR SOD INJ 750 MG in DEXTROSE 5% 250ML 250 ML IV SCH (18:18)
[2017-10-23] MEDS ORDERED: VANCOMYCIN IV 2,000 MG in SODIUM CHLORIDE 0.9% 250ML 250 ML IV SCH (21:00)
[2017-10-24] VITALS (10 sets, daily range): BP systolic 130–160; BP diastolic 72–107; PULSE 68–84; TEMP 36.4–39.6; O2SAT 92–98
[2017-10-24] MEDS: DOXYCYCLINE HYCLATE 100 MG CAP PO SCH ×3 (00:01→20:54)
[2017-10-24] MEDS: CALCIUM CARBONATE 1250MG TAB PO SCH ×3 (00:01→20:54)
[2017-10-24] MEDS: POTASSIUM CHLORIDE INJ 40 MEQ in SODIUM CHLORIDE 0.9% 1000ML 1,000 ML IV SCH ×2 (02:30→14:05)
[2017-10-24] MEDS: ACYCLOVIR SOD INJ 750 MG in DEXTROSE 5% 250ML 250 ML IV SCH ×3 (02:30→18:02)
[2017-10-24] MEDS ORDERED: VANCOMYCIN TROUGH ONE (03:30)
[2017-10-24] MEDS: VANCOMYCIN IV 2,000 MG in SODIUM CHLORIDE 0.9% 500ML 500 ML IV SCH ×2 (04:11→16:02)
[2017-10-24 04:23] LABS: CREATININE 1.1 mg/dl (0.60-1.20)
[2017-10-24] MEDS: IBUPROFEN 600 MG TAB PO PRN ×4 (04:38→20:55)
--- NOTE | 2017-10-24 06:36 | Family Medicine Progress Note ---
Progress Note Date of Service Oct 24, 2017. Subjective Pt evaluation today including: conversation w/ patient, conversation w/ family , physical exam, chart review, lab review, review of studies, review of inpatient medication list Pain: Mild pain in LLQ/flank. Neck/back pain 06/14. PO Intake: No nausea, but eat minimally from breakfast today. Not hungry. Voiding: no voiding problems, no incontinence Mrs. Farida Panchal was seen with her at bedside this morning. She is very somnolent this morning. Her reports she improved greatly on Tuesday/Tuesday, but seems a little more confused and less alert than she was over the weekend. She reports she feels a little nauseus this morning, but it is better than it was yesterday. She was only able to eat a little toast this morning. She denies abdominal pain, but notes some tenderness in her L flank around a bruise. She denies feelings fever/chills/sweating overnight. Denies shortness of breath/chest pain/palpitations overnight. She reports she slept well last night, but feels very sleepy today. Her is concerned what the plan is, and what the most likely source of infection is. He notes that she has had feelings of dizziness and wonders if an ear infection could contribute to her presentation. She continues to be able to void and is not incontinent. No BM today. Constitutional: + weakness, + fatigue, No fever, No chills, No sweats ENT: No nasal symptoms, No sore throat Respiratory: No cough, No shortness of breath, No dyspnea on exertion Cardiovascular: No chest pain, No palpitations Abdomen: + nausea, No vomiting, No diarrhea, No constipation, No GI bleeding Musculoskeletal: No joint pain, No muscle pain Female : No dysuria, No incontinence Neurologic: + weakness, + vertigo, No memory loss, No numbness/tingling Psychiatric: No insomnia Endo: + fatigue Skin: No rash, No new/changing skin lesions Medications Current Inpatient Medications Medications (Trade) Dose Ordered Sig/Lesa Route Start Time Stop Time Status Last Admin Dose Admin Aspirin (Ecotrin Tab) 325 mg DAILY PO 10/21/17 09:00 11/20/17 08:59 10/24/17 08:00 325 MG Acetaminophen (Tylenol Tab) 650 mg Q4H PRN PO 10/21/17 11:30 11/20/17 11:29 10/23/17 13:01 650 MG Levetiracetam (Keppra Tab) 500 mg BID PO 10/21/17 21:00 11/20/17 20:59 10/24/17 08:01 500 MG Lactobacillus Acidophilus (Floranex Tab) 4 tab TIDM PO 10/21/17 13:30 11/20/17 13:29 10/24/17 08:02 4 TAB Doxycycline Hyclate (Vibramycin Cap) 100 mg BID PO 10/21/17 19:00 11/03/17 18:59 10/24/17 08:01 100 MG Calcium Carbonate (Tums Chew Tab) 500 mg PRN PRN PO 10/21/17 23:00 11/20/17 22:59 10/24/17 13:05 500 MG Calcium Carbonate (oS-Alexsander 500 TAB) 500 mg BID PO 10/23/17 21:00 11/22/17 20:59 10/24/17 08:02 500 MG Cholecalciferol (Vitamin D Tab) 1,000 inter.unit QAM PO 10/24/17 09:00 11/23/17 08:59 10/24/17 08:00 1,000 INTER.UNIT Vancomycin HCl (Consult) 1 ea UD PRN N/A 10/23/17 15:15 11/22/17 15:14 Acyclovir Sodium 750 mg/Dextrose 265 ml @ 265 mls/hr Q8H IV 10/23/17 18:00 11/02/17 17:59 10/24/17 09:53 265 MLS/HR Potassium Chloride (Klor-Con Tab) 40 meq BID PO 10/23/17 21:00 11/22/17 20:59 10/24/17 08:01 40 MEQ Potassium Chloride 40 meq/ Sodium Chloride 1,020 ml @ 125 mls/hr Q8H10M IV 10/23/17 15:30 11/22/17 15:29 10/24/17 02:30 125 MLS/HR Ondansetron HCl 8 mg/Dextrose 54 ml @ 216 mls/hr Q6H PRN IV 10/23/17 15:45 11/22/17 15:44 10/23/17 23:20 216 MLS/HR Vancomycin HCl 2000 mg/Sodium Chloride 540 ml @ 200 mls/hr Q12H IV 10/23/17 16:00 10/25/17 15:59 10/24/17 04:11 200 MLS/HR Acetaminophen 100 ml @ 400 mls/hr Q8H PRN IV 10/23/17 16:30 11/22/17 16:29 10/24/17 13:11 400 MLS/HR Ibuprofen (Motrin Tab) 600 mg TID PRN PO 10/24/17 04:30 11/23/17 04:29 10/24/17 04:38 600 MG Ceftriaxone Sodium 2000 mg/ Dextrose 70 ml @ 100 mls/hr Q24H IV 10/24/17 13:30 10/26/17 13:29 UNV Objective Vital Signs Date Time Temp Pulse Resp B/P (MAP) Pulse Ox O2 Delivery O2 Flow Rate FiO2 10/24/17 13:03 39.5 10/24/17 11:47 37.7 82 19 136/72 (93) 93 Room Air 10/24/17 08:01 37.3 77 19 130/72 (91) 92 10/24/17 05:30 38.3 10/24/17 04:10 39.6 82 28 160/73 (102) 92 Room Air 10/24/17 00:10 38.6 84 26 155/87 (109) 92 Room Air 10/23/17 20:00 92 Room Air 10/23/17 19:30 37.0 10/23/17 19:17 39.0 77 18 160/60 (93) 95 Room Air 10/23/17 16:00 Room Air 10/23/17 15:48 39.1 78 18 159/91 (113) 90 Room Air Physical Exam General Appearance: + pertinent finding (Somnilent) Eyes: normal inspection, PERRL, EOMI, sclerae normal, + pertinent finding ( Increase latency of movement in R eye on EoM testing) ENT: hearing grossly normal Neck: supple, no adenopathy, no carotid bruits, trachea midline Respiratory/Chest: chest non-tender, no respiratory distress, no accessory muscle use, + pertinent finding (Mild bibasilar crackles bilaterally) Cardiovascular: regular rate, rhythm, no edema, no gallop, no JVD, no murmur Abdomen: normal bowel sounds, soft, + tenderness (tender in LLQ and L flank principally around a hematoma. ) Extremities: non-tender 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: + pertinent finding (Oriented to name, place, and year. Not oriented to date or day of the week. Extremely somnilent.) Skin: normal color, warm/dry, no rash Lymphatic: no adenopathy Laboratory Results 10/24/17 07:00 Red Blood Count 3.58, Mean Corpuscular Volume 91.1, Mean Corpuscular Hemoglobin 31.0, Mean Corpuscular Hemoglobin Concent 34.0, Mean Platelet Volume 9.8, Neutrophils (%) (Auto) 70.7, Lymphocytes (%) (Auto) 15.7, Monocytes (%) (Auto) 12.6, Eosinophils (%) (Auto) 0.0, Basophils (%) (Auto) 0.3, Neutrophils # (Auto ) 11.35, Lymphocytes # (Auto) 2.53, Monocytes # (Auto) 2.03, Eosinophils # (Auto ) 0.00, Basophils # (Auto) 0.05 10/24/17 07:00 Test 10/24/17 03:40 10/24/17 07:00 Vancomycin Level Trough 14.4 mcg/ml (SEE COMMENT) White Blood Count 16.07 K/uL (4.8-10.8) Red Blood Count 3.58 M/uL (4.2-5.4) Hemoglobin 11.1 g/dL (12.0-16.0) Hematocrit 32.6 % (37-47) Mean Corpuscular Volume 91.1 fL (80-100) Mean Corpuscular Hemoglobin 31.0 pg (25-34) Mean Corpuscular Hemoglobin Concent 34.0 g/dl (32-36) Platelet Count 134 K/uL (130-400) Mean Platelet Volume 9.8 fL (7.4-10.4) Neutrophils (%) (Auto) 70.7 % Lymphocytes (%) (Auto) 15.7 % Monocytes (%) (Auto) 12.6 % Eosinophils (%) (Auto) 0.0 % Basophils (%) (Auto) 0.3 % Neutrophils # (Auto) 11.35 K/uL (1.4-6.5) Lymphocytes # (Auto) 2.53 K/uL (1.2-3.4) Monocytes # (Auto) 2.03 K/uL (0.11-0.59) Eosinophils # (Auto) 0.00 K/uL (0-0.5) Basophils # (Auto) 0.05 K/uL (0-0.2) RDW Standard Deviation 43.0 fL (36.4-46.3) RDW Coefficient of Variation 12.9 % (11.5-14.5) Immature Granulocyte % (Auto) 0.7 % Immature Granulocyte # (Auto) 0.11 K/uL (0.00-0.02) Nucleated RBC Absolute Count (auto) 0.05 K/uL (0-0) Nucleated Red Blood Cells % 0.3 % Erythrocyte Sedimentation Rate 9 mm/hr (0-21) Anion Gap 8.0 mmol/L (3-11) Est Creatinine Clear Calc Drug Dose 78.3 ml/min Estimated GFR () 72.1 Estimated GFR (Non- 62.2 BUN/Creatinine Ratio 11.5 (10-20) Calcium Level 6.6 mg/dl (8.5-10.1) Phosphorus Level 1.8 mg/dl (2.5-4.9) Magnesium Level 1.5 mg/dl (1.8-2.4) Total Bilirubin 0.9 mg/dl (0.2-1) Aspartate Amino Transf (AST/SGOT) 33 U/L (15-37) Alanine Aminotransferase (ALT/SGPT) 91 U/L (12-78) Alkaline Phosphatase 57 U/L (45-117) C-Reactive Protein 1.96 mg/dl (0-0.29) Total Protein 6.1 gm/dl (6.4-8.2) Albumin 2.8 gm/dl (3.4-5.0) Globulin 3.3 gm/dl (2.5-4.0) Albumin/Globulin Ratio 0.8 (0.9-2) Assessment and Plan The patient is a 57-year-old female with a past medical history of hypertension and prediabetes that presents with acute altered mental status, increasing leukocytosis, fevers, and a possible seizure event. Acute Encephalitis/Altered Mental Status - Unclear origin - Continuing to spike fevers with worsening leukocytosis + left shift to 16.0 ( 70% neut) today - Neuro: Likely seizure 2/2 syncopal event, AMS a post ictal state. - Converted to oral valtrex yesterday, pt has worsening mental status and was switched back to IV acyclovir - Ceftriaxone was held yesterday, restarted today with worsening leukocytosis and clinical picture mainly to cover for tick meningitis - Doxy 100mg BID for tick borne coverage - Levetiracetam 500mg PO BID for seizure - Infectious studies pending (BCx2, West Nile, Varicella, Herpes, CSF Culture, Erlichia, Anaplasmosis) - Monoscreen and Lyme negative Fever of Unknown Origin - Unknown cause lasting for about 10 days, has not responded to antibiotics. - Patient is clinically worsening, feeling unwell and spiking fevers consistently - She was found down, it is possible that she has a 2* aspiration pneumonia causing her clinical picture to worsen after her initial condition and neuro status improvement - CT-Chest Hypokalemia - 3.0 today - Magnesium 1.5 today. MagSulf 2g was given today, continue to replete if low - Potassium repletement 40meq in IVFM +/- 20mEq oral Klor as needed - Continue to monitor Hypocalcemia - 7.7 corrected calcium, replacing with oral calcium carbonate tablets and vitamin D - MagSulf 2g given this morning - Will continue to monitor Hypertension - Holding home HCTZ DVT - SCDs Code Status - Full Resuscitation Resident Physician Supervision Note: I interviewed and examined the patient. Discussed with Dr. Boland and agree with findings and plan as documented in the note. Any exceptions or clarifications are listed here: None Documented By: Thang Brown ongoing fevers, still fatigued. less confused than last week vitals noted fatigued, somewhat diaphoretic. base rales R>L FUO - seems most c/w tick borne illness however viral and other pathologies cannot be ruled out. question aspiration since rales and was down after seizure. CT chest to rule out. resume rocephin seizure - due to above, currently stable. continue current care Resident Tracking Resident Involvement: Resident Care Provided Care Provided: Adult Hospital Medicine
[2017-10-24 07:14] LABS: HEMATOCRIT 32.6 % (37-47); HEMOGLOBIN 11.1 g/dL (12.0-16.0); MEAN CELL VOLUME 91.1 fL (80-100); MEAN PLATELET VOLUME 9.8 fL (7.4-10.4); NUCLEATED RED BLOOD CELL ABS 0.05 K/uL (0-0); PLATELET COUNT 134 K/uL (130-400); RED CELL DISTRIBUTION WIDTH CV 12.9 % (11.5-14.5); WHITE BLOOD COUNT 16.07 K/uL (4.8-10.8)
[2017-10-24 07:46] LABS: ALBUMIN 2.8 gm/dl (3.4-5.0); BASO % 0.3 %; BASO ABS # 0.05 K/uL (0-0.2); CALCIUM 6.6 mg/dl (8.5-10.1); CREATININE 1.01 mg/dl (0.60-1.20); IG# 0.11 K/uL (0.00-0.02); LYMPH % 15.7 %; LYMPH ABS # 2.53 K/uL (1.2-3.4); MONO % 12.6 %; MONO ABS # 2.03 K/uL (0.11-0.59); NEUT % 70.7 %; NEUT ABS # 11.35 K/uL (1.4-6.5); TOTAL PROTEIN 6.1 gm/dl (6.4-8.2)
[2017-10-24] MEDS: ASPIRIN 325 MG ECTAB PO SCH (08:00)
[2017-10-24] MEDS: CHOLECALCIFEROL 1000 INTER.UNIT TAB PO SCH (08:00)
[2017-10-24] MEDS: LEVETIRACETAM 500 MG TAB PO SCH ×3 (08:01→20:54)
[2017-10-24] MEDS: POTASSIUM CHLORIDE 20 MEQ TABCR PO SCH ×3 (08:01→20:58)
[2017-10-24] MEDS: LACTOBACILLUS ACIDOPHILUS (FLORANEX) TAB PO SCH ×3 (08:02→18:02)
[2017-10-24 08:15] LABS: PHOSPHORUS 1.8 mg/dl (2.5-4.9)
[2017-10-24] MEDS: MAGNESIUM SULFATE 1GM / D5W 100 ML IV SCH ×2 (08:40→09:53)
--- NOTE | 2017-10-24 11:06 | Progress Note ---
Subjective Date of Service: Oct 24, 2017. Subjective Pt evaluation today including: conversation w/ patient, conversation w/ family , physical exam, chart review, conversation w/ compliance consultant, review of inpatient medication list pt transferred to ICU due to ongoing fevers. abx restarted. tmax 39.6 now afebrile. at bedside. feels she is better now that abx restarted. all blood, urine and csf cultures negative. [place] negative, lyme pcr pending. HSV pcr pending. repeat blood cultures pending. had sob yesterday, was concerned for possible aspiration at home at time of seizure but cxr with pulm edema only, O2 sats 92%RA. she is much more lethargic today. states vomiting yesterday and poor intake today. he states she is sleeping alot and unable to stay awake, new finding today. wbc elevated, but was on steroids on admission. ALT elevated slightly today. she denies f/c. cp, sob but is lethargic. all remaining ros reviewed and are negative. Problem List Medical Problems: (1) Altered mental status Status: Acute (2) Back pain Status: Acute (3) Chest pain Status: Acute (4) Contusion of knee, left Status: Acute (5) Fever Status: Acute (6) Hypokalemia Status: Acute (7) Hypomagnesemia Status: Acute (8) Laceration of left knee without foreign body Status: Acute (9) Lung nodule Status: Acute (10) Pulmonary nodule Status: Acute (11) Unresponsive episode Status: Acute Objective Vital Signs Date Time Temp Pulse Resp B/P (MAP) Pulse Ox O2 Delivery O2 Flow Rate FiO2 10/24/17 08:01 37.3 77 19 130/72 (91) 92 10/24/17 05:30 38.3 10/24/17 04:10 39.6 82 28 160/73 (102) 92 Room Air 10/24/17 00:10 38.6 84 26 155/87 (109) 92 Room Air 10/23/17 20:00 92 Room Air 10/23/17 19:30 37.0 10/23/17 19:17 39.0 77 18 160/60 (93) 95 Room Air 10/23/17 16:00 Room Air 10/23/17 15:48 39.1 78 18 159/91 (113) 90 Room Air 10/23/17 13:31 39.2 86 20 138/75 (96) 94 Room Air 10/23/17 12:56 39.1 78 24 152/83 (106) 92 Room Air Physical Exam General Appearance: WD/WN, + pertinent finding (lethargic but able to arouse to answer questions) Eyes: EOMI Neck: supple, + pertinent finding (no nuchal rigidity) Respiratory/Chest: lungs clear, + decreased breath sounds Cardiovascular: regular rate, rhythm, no edema, no murmur Abdomen: non tender, soft Extremities: non-tender, no pedal edema Skin: normal color Laboratory Results Item Value Date Time Blood Culture - Preliminary Resulted 10/20/17 2315 Blood NO GROWTH TO DATE. Blood Culture - Preliminary Resulted 10/20/17 2343 Blood NO GROWTH TO DATE. Gram Stain - Final Complete 10/21/17 0000 Cerebral Spinal Fluid Urine Culture - Final Complete 10/21/17 0044 Urine,Catheterized NO GROWTH - LESS THAN 1,000 COLONIES/ML Last 24 Hours Test 10/24/17 03:40 10/24/17 07:00 Creatinine 1.10 mg/dl 1.01 mg/dl Est Creatinine Clear Calc Drug Dose 70.0 ml/min 78.3 ml/min Estimated GFR () 65.0 72.1 Estimated GFR (Non- 56.1 62.2 Vancomycin Level Trough 14.4 mcg/ml White Blood Count 16.07 K/uL Red Blood Count 3.58 M/uL Hemoglobin 11.1 g/dL Hematocrit 32.6 % Mean Corpuscular Volume 91.1 fL Mean Corpuscular Hemoglobin 31.0 pg Mean Corpuscular Hemoglobin Concent 34.0 g/dl Platelet Count 134 K/uL Mean Platelet Volume 9.8 fL Neutrophils (%) (Auto) 70.7 % Lymphocytes (%) (Auto) 15.7 % Monocytes (%) (Auto) 12.6 % Eosinophils (%) (Auto) 0.0 % Basophils (%) (Auto) 0.3 % Neutrophils # (Auto) 11.35 K/uL Lymphocytes # (Auto) 2.53 K/uL Monocytes # (Auto) 2.03 K/uL Eosinophils # (Auto) 0.00 K/uL Basophils # (Auto) 0.05 K/uL RDW Standard Deviation 43.0 fL RDW Coefficient of Variation 12.9 % Immature Granulocyte % (Auto) 0.7 % Immature Granulocyte # (Auto) 0.11 K/uL Nucleated RBC Absolute Count (auto) 0.05 K/uL Nucleated Red Blood Cells % 0.3 % Erythrocyte Sedimentation Rate 9 mm/hr Sodium Level 142 mmol/L Potassium Level 3.0 mmol/L Chloride Level 108 mmol/L Carbon Dioxide Level 26 mmol/L Anion Gap 8.0 mmol/L Blood Urea Nitrogen 12 mg/dl BUN/Creatinine Ratio 11.5 Random Glucose 101 mg/dl Calcium Level 6.6 mg/dl Phosphorus Level 1.8 mg/dl Magnesium Level 1.5 mg/dl Total Bilirubin 0.9 mg/dl Aspartate Amino Transf (AST/SGOT) 33 U/L Alanine Aminotransferase (ALT/SGPT) 91 U/L Alkaline Phosphatase 57 U/L C-Reactive Protein 1.96 mg/dl Total Protein 6.1 gm/dl Albumin 2.8 gm/dl Globulin 3.3 gm/dl Albumin/Globulin Ratio 0.8 Assessment and Plan (1) Fever Assessment & Plan: discussed at length with . will continue abx for now. would suggest repeat cxr in am. blood cultures pending. mental status worse today, would ask neuro for input. may need repeat mri and or lp Continued [facility] stay due to: abnormal vital signs, multiple IV medications needed
--- NOTE | 2017-10-24 12:07 | Pharmacy Progress Note ---
Pharmacy Abx Dose Short Note Date of Service Oct 24, 2017. Assessment & Plan Assessment 57 year old female receiving Vancomycin 2gm IV Q12 for empiric treatment. Patient also on course of Acyclovir and Doxycycline. Blood cultures and serology pending, initial lyme negative. Suspect viral source, febrile x3days and WBC climbing. ID is following Day # 2 of empiric antimicrobial therapy. Item Value Date Time Vancomycin Level Trough 14.4 mcg/ml 10/24/17 0340 Vancomycin Level Trough 17.9 mcg/ml 10/22/17 1126 Plan Vancomycin * Trough level of 14.4 mcg/mL is slightly subtherapeutic. Vanco therapy was resumed on 10/23, with previous dose midday 10/22. Since patient has only had two doses since resuming therapy, it is not likely she is at steady state. However, she would have still had some vanc on board when therapy was resumed. * Continue dose of 2gm IV every 12 hours * Goal trough level for 15 to 20 mcg/mL * Repeat trough level ordered for: 10/25/2017 before 0400 dose Pharmacy will continue to follow and will adjust dose/frequency as necessary. Thank you.
[2017-10-24] MEDS: CALCIUM CARBONATE 500 MG CHEWABLE PO PRN (13:05)
[2017-10-24] MEDS: ACETAMINOPHEN 325 MG TAB PO PRN (13:09)
[2017-10-24] MEDS: ACETAMINOPHEN IV 100 ML IV PRN (13:11)
--- NOTE | 2017-10-24 15:48 | DIAGNOSTIC IMAGING REPORT ---
(CHEST) THORAX WITHOUT CLINICAL HISTORY: Fever, cough, pulmonary edema. Possible aspiration pneumonia. COMPARISON STUDY: 07/14/2017 , chest x-ray dated 10/23/2017 CT DOSE: 721.04 mGy.cm TECHNIQUE: CT of the thorax was performed from the thoracic inlet to the lung bases. Images are reviewed in the axial, sagittal, and coronal planes. IV contrast was not administered for this examination. A dose lowering technique was utilized adhering to the principles of ALARA. FINDINGS: Thyroid: Imaged portions of the thyroid gland are normal in appearance. Thoracic aorta: The thoracic aorta is normal in course and caliber, noting standard 3 vessel arch anatomy. Heart: The heart is normal in size and configuration, without pericardial effusion. Lungs and pleural spaces: There are small bilateral pleural effusions. There are dependent atelectatic changes. There are no suspicious pulmonary masses. 3 right lung pulmonary nodules the largest of which measures 5 mm remain stable. Mediastinum: There is no mediastinal lymphadenopathy. Marilee: There is no evidence of pathologic hilar adenopathy given the limitations of a noncontrast study Axilla: There is no evidence of pathologic axillary lymphadenopathy Upper abdomen: There is probable cholelithiasis. Skeletal structures: There are no lytic or blastic osseous lesions. IMPRESSION: 1. Small bilateral pleural effusions 2. Dependent airspace opacities likely atelectatic 3. Stable right lung pulmonary nodules the largest of which measures 5 mm. In a low risk patient, no routine follow-up is deemed necessary. In a high risk patient a 12 month follow-up is optional 4. No evidence of pathologic adenopathy on this noncontrast study. Electronically signed by: Terrance Pendleton M.D. 10/24/2017 3:47 PM Dictated Date/Time: 10/24/2017 3:41 PM
[2017-10-24] MEDS: CEFTRIAXONE SOD INJ 2,000 MG in DEXTROSE 5% 50ML 50 ML IV SCH (16:02)
[2017-10-25] MEDS: POTASSIUM CHLORIDE INJ 40 MEQ in SODIUM CHLORIDE 0.9% 1000ML 1,000 ML IV SCH (00:06)
[2017-10-25] MEDS: ACYCLOVIR SOD INJ 750 MG in DEXTROSE 5% 250ML 250 ML IV SCH ×3 (01:54→17:21)
[2017-10-25 03:30] VITALS: BP 148/97; PULSE 76; TEMP 36.9; O2SAT 94
[2017-10-25] MEDS ORDERED: VANCOMYCIN TROUGH ONE (03:30)
[2017-10-25 03:42] LABS: BASO % 0.2 %; BASO ABS # 0.02 K/uL (0-0.2); EOS % 1.2 %; EOS ABS # 0.13 K/uL (0-0.5); HEMATOCRIT 33.9 % (37-47); HEMOGLOBIN 11.1 g/dL (12.0-16.0); IG# 0.06 K/uL (0.00-0.02); LYMPH % 18.9 %; MEAN CELL VOLUME 92.1 fL (80-100); MEAN CORPUSCULAR HEMOGLOBIN 30.2 pg (25-34); MEAN CORPUSCULAR HGB CONC 32.7 g/dl (32-36); MEAN PLATELET VOLUME 9.8 fL (7.4-10.4); MONO % 12.2 %; MONO ABS # 1.36 K/uL (0.11-0.59); NEUT ABS # 7.45 K/uL (1.4-6.5); NUCLEATED RED BLOOD CELL ABS 0.02 K/uL (0-0); PLATELET COUNT 150 K/uL (130-400); RED CELL DISTRIBUTION WIDTH CV 13.2 % (11.5-14.5); RED CELL DISTRIBUTION WIDTH SD 44.5 fL (36.4-46.3); WHITE BLOOD COUNT 11.12 K/uL (4.8-10.8)
[2017-10-25 04:10] LABS: ALBUMIN 2.8 gm/dl (3.4-5.0); CREATININE 0.87 mg/dl (0.60-1.20); POTASSIUM 3.9 mmol/L (3.5-5.1); TOTAL PROTEIN 6.2 gm/dl (6.4-8.2)
[2017-10-25] MEDS: VANCOMYCIN IV 2,000 MG in SODIUM CHLORIDE 0.9% 500ML 500 ML IV SCH (04:48)
[2017-10-25 07:05] VITALS: BP_SYST 159; BP_SYST 174; BP_DIAS 120; BP_DIAS 92; PULSE 77; TEMP 37.4; O2SAT 97
--- NOTE | 2017-10-25 07:10 | Family Medicine Progress Note ---
Progress Note Date of Service Oct 25, 2017. Subjective Pain: Mild mid/low back pain, central, nonradiating today. Denies other pain. PO Intake: Good, ate breakfast without nausea Voiding: no voiding problems Constitutional: + weakness, + fatigue, No fever, No chills, No sweats Eyes: No worsening of vision ENT: No hearing loss, No nasal symptoms, No sore throat Respiratory: No cough, No sputum, No wheezing, No shortness of breath, No dyspnea at rest Cardiovascular: No chest pain, No palpitations Abdomen: No pain, No nausea, No vomiting, No diarrhea, No constipation, No GI bleeding Musculoskeletal: + swelling (mild swelling in legs and hands), No joint pain , No muscle pain Female : No dysuria Neurologic: + weakness (fatigued today, feels exhausted), No memory loss, No numbness/tingling Endo: + fatigue Skin: No rash, No new/changing skin lesions Medications Current Inpatient Medications Medications (Trade) Dose Ordered Sig/Lesa Route Start Time Stop Time Status Last Admin Dose Admin Aspirin (Ecotrin Tab) 325 mg DAILY PO 10/21/17 09:00 11/20/17 08:59 10/25/17 08:10 325 MG Acetaminophen (Tylenol Tab) 650 mg Q4H PRN PO 10/21/17 11:30 11/20/17 11:29 10/25/17 09:18 650 MG Levetiracetam (Keppra Tab) 500 mg BID PO 10/21/17 21:00 11/20/17 20:59 10/25/17 08:11 500 MG Lactobacillus Acidophilus (Floranex Tab) 4 tab TIDM PO 10/21/17 13:30 11/20/17 13:29 10/25/17 07:20 4 TAB Doxycycline Hyclate (Vibramycin Cap) 100 mg BID PO 10/21/17 19:00 11/03/17 18:59 10/25/17 08:09 100 MG Calcium Carbonate (Tums Chew Tab) 500 mg PRN PRN PO 10/21/17 23:00 11/20/17 22:59 10/24/17 13:05 500 MG Calcium Carbonate (oS-Alexsander 500 TAB) 500 mg BID PO 10/23/17 21:00 11/22/17 20:59 10/25/17 08:10 500 MG Cholecalciferol (Vitamin D Tab) 1,000 inter.unit QAM PO 10/24/17 09:00 11/23/17 08:59 10/25/17 08:10 1,000 INTER.UNIT Vancomycin HCl (Consult) 1 ea UD PRN N/A 10/23/17 15:15 11/22/17 15:14 Acyclovir Sodium 750 mg/Dextrose 265 ml @ 265 mls/hr Q8H IV 10/23/17 18:00 11/02/17 17:59 10/25/17 10:41 265 MLS/HR Ondansetron HCl 8 mg/Dextrose 54 ml @ 216 mls/hr Q6H PRN IV 10/23/17 15:45 11/22/17 15:44 10/23/17 23:20 216 MLS/HR Vancomycin HCl 2000 mg/Sodium Chloride 540 ml @ 200 mls/hr Q12H IV 10/23/17 16:00 10/25/17 15:59 10/25/17 04:48 200 MLS/HR Acetaminophen 100 ml @ 400 mls/hr Q8H PRN IV 10/23/17 16:30 11/22/17 16:29 10/24/17 13:11 400 MLS/HR Ibuprofen (Motrin Tab) 600 mg TID PRN PO 10/24/17 04:30 11/23/17 04:29 10/25/17 07:19 600 MG Ceftriaxone Sodium 2000 mg/ Dextrose 70 ml @ 100 mls/hr Q24H IV 10/24/17 16:00 10/26/17 15:59 10/24/17 16:02 100 MLS/HR Sodium Chloride 1,000 ml @ 100 mls/hr Q10H IV 10/25/17 07:00 11/24/17 06:59 10/25/17 07:21 100 MLS/HR Objective Vital Signs Date Time Temp Pulse Resp B/P (MAP) Pulse Ox O2 Delivery O2 Flow Rate FiO2 10/25/17 08:00 Room Air 10/25/17 07:05 37.4 77 18 159/92 (114) 97 Room Air 174/120 (138) 10/25/17 03:30 36.9 76 18 148/97 (114) 94 Room Air 10/24/17 23:20 36.9 78 20 156/94 (114) 97 Room Air 10/24/17 20:30 98 Room Air 10/24/17 19:30 36.4 68 20 137/107 (117) 98 Room Air 10/24/17 15:46 37.2 70 18 147/97 (114) 97 Nasal Cannula 3.0 10/24/17 13:03 39.5 10/24/17 11:47 37.7 82 19 136/72 (93) 93 Room Air Physical Exam General Appearance: WD/WN, no apparent distress, + pertinent finding (appears fatigued) Eyes: normal inspection, PERRL, EOMI, sclerae normal ENT: hearing grossly normal Neck: supple, no adenopathy, no JVD, trachea midline Respiratory/Chest: chest non-tender, normal breath sounds, no respiratory distress, no accessory muscle use, + pertinent finding (bibasilar crackles) Cardiovascular: regular rate, rhythm, no edema, no gallop, no JVD, no murmur Abdomen: normal bowel sounds, non tender, soft, no organomegaly Extremities: non-tender 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: normal mood/affect, oriented x 3, + pertinent finding ( somnilent, but arousable. Oriented to place, day of week, name.) Skin: normal color, warm/dry, no rash Lymphatic: no adenopathy Laboratory Results 10/25/17 03:30 Red Blood Count 3.68, Mean Corpuscular Volume 92.1, Mean Corpuscular Hemoglobin 30.2, Mean Corpuscular Hemoglobin Concent 32.7, Mean Platelet Volume 9.8, Neutrophils (%) (Auto) 67.0, Lymphocytes (%) (Auto) 18.9, Monocytes (%) (Auto) 12.2, Eosinophils (%) (Auto) 1.2, Basophils (%) (Auto) 0.2, Neutrophils # (Auto ) 7.45, Lymphocytes # (Auto) 2.10, Monocytes # (Auto) 1.36, Eosinophils # (Auto ) 0.13, Basophils # (Auto) 0.02 10/25/17 03:30 Test 10/24/17 15:50 10/25/17 03:30 25-Hydroxy Vitamin D Total 29.3 ng/ml (30-100) White Blood Count 11.12 K/uL (4.8-10.8) Red Blood Count 3.68 M/uL (4.2-5.4) Hemoglobin 11.1 g/dL (12.0-16.0) Hematocrit 33.9 % (37-47) Mean Corpuscular Volume 92.1 fL (80-100) Mean Corpuscular Hemoglobin 30.2 pg (25-34) Mean Corpuscular Hemoglobin Concent 32.7 g/dl (32-36) Platelet Count 150 K/uL (130-400) Mean Platelet Volume 9.8 fL (7.4-10.4) Neutrophils (%) (Auto) 67.0 % Lymphocytes (%) (Auto) 18.9 % Monocytes (%) (Auto) 12.2 % Eosinophils (%) (Auto) 1.2 % Basophils (%) (Auto) 0.2 % Neutrophils # (Auto) 7.45 K/uL (1.4-6.5) Lymphocytes # (Auto) 2.10 K/uL (1.2-3.4) Monocytes # (Auto) 1.36 K/uL (0.11-0.59) Eosinophils # (Auto) 0.13 K/uL (0-0.5) Basophils # (Auto) 0.02 K/uL (0-0.2) RDW Standard Deviation 44.5 fL (36.4-46.3) RDW Coefficient of Variation 13.2 % (11.5-14.5) Immature Granulocyte % (Auto) 0.5 % Immature Granulocyte # (Auto) 0.06 K/uL (0.00-0.02) Nucleated RBC Absolute Count (auto) 0.02 K/uL (0-0) Nucleated Red Blood Cells % 0.2 % Anion Gap 6.0 mmol/L (3-11) Est Creatinine Clear Calc Drug Dose 90.9 ml/min Estimated GFR () 86.3 Estimated GFR (Non- 74.5 BUN/Creatinine Ratio 9.6 (10-20) Calcium Level 7.0 mg/dl (8.5-10.1) Total Bilirubin 0.5 mg/dl (0.2-1) Aspartate Amino Transf (AST/SGOT) 18 U/L (15-37) Alanine Aminotransferase (ALT/SGPT) 74 U/L (12-78) Alkaline Phosphatase 56 U/L (45-117) Total Protein 6.2 gm/dl (6.4-8.2) Albumin 2.8 gm/dl (3.4-5.0) Globulin 3.4 gm/dl (2.5-4.0) Albumin/Globulin Ratio 0.8 (0.9-2) Vancomycin Level Trough 16.9 mcg/ml (SEE COMMENT) Date/Time Source Procedure Growth Status 10/24/17 15:50 Blood Parasitology Test - Final Complete Assessment and Plan The patient is a 57-year-old female with a past medical history of hypertension and prediabetes that presented with acute altered mental status, increasing leukocytosis, fevers, and a possible seizure event. 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 Will repeat Lyme antibodies tomorrow. - No fevers overnight, leukocytosis downtrended to 11.2 - Per Neuro: Likely seizure 2/2 syncopal event, AMS a post ictal state. - Improving clinically and leukocytosis downtrending since restarting ceftriaxone. - Doxy 100mg BID for tick borne coverage. Ceftriaxone 2g daily for tick encephalitis - Levetiracetam 500mg PO BID for seizure - Infectious studies pending (BCx2, West Nile, Varicella, Herpes, CSF Culture, Erlichia, Anaplasmosis) - Monoscreen and Lyme negative Fever of Unknown Origin - Unknown cause lasted for about 11 days - Improved, afebrile overnight, appears to be responding well to Rocephin - CT-Chest did not show any pneumonia/consolidations. Hypokalemia - Normalized today with Mg repletion. 3.9, IV/PO KCl discontinuied - Magnesium 1.5 today. MagSulf 2g was given today, continue to replete if low - Potassium repletement 40meq in IVFM +/- 20mEq oral Klor as needed - Continue to monitor Hypocalcemia - 8.0 corrected calcium, appears improved with Mg repletion - VitD was just barely low. Continue VD 1,000u daily supplement - Will continue to monitor Hypertension - Holding home HCTZ DVT - SCDs Code Status - Full Resuscitation Resident Physician Supervision Note: I interviewed and examined the patient. Discussed with Dr. Boland and agree with findings and plan as documented in the note. Any exceptions or clarifications are listed here: None Documented By: Thang Brown feeling about the same, looks a little better. less high of a fever gilmar noted fatigued appearing but better conversational, steady gait. 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 continue aristides alexander. since not entirely clear that this is the etiology - acyclovir empirically. time. supportive care seizure - due to above, currently stable. continue current care Continued [facility] stay due to: multiple IV medications needed Resident Tracking Resident Involvement: Resident Care Provided Care Provided: Adult Hospital Medicine
[2017-10-25] MEDS: IBUPROFEN 600 MG TAB PO PRN ×2 (07:19→20:12)
[2017-10-25] MEDS: LACTOBACILLUS ACIDOPHILUS (FLORANEX) TAB PO SCH ×3 (07:20→17:21)
[2017-10-25] MEDS: SODIUM CHLORIDE 0.9% 1000ML 1,000 ML IV SCH ×2 (07:21→17:21)
[2017-10-25] MEDS: DOXYCYCLINE HYCLATE 100 MG CAP PO SCH ×2 (08:09→20:13)
[2017-10-25] MEDS: CHOLECALCIFEROL 1000 INTER.UNIT TAB PO SCH (08:10)
[2017-10-25] MEDS: ASPIRIN 325 MG ECTAB PO SCH (08:10)
[2017-10-25] MEDS: CALCIUM CARBONATE 1250MG TAB PO SCH ×2 (08:10→20:13)
[2017-10-25] MEDS: LEVETIRACETAM 500 MG TAB PO SCH ×2 (08:11→20:14)
[2017-10-25] MEDS: ACETAMINOPHEN 325 MG TAB PO PRN (09:18)
[2017-10-25 11:42] VITALS: BP 143/87; PULSE 85; TEMP 36.9; O2SAT 96
--- NOTE | 2017-10-25 13:26 | Progress Note ---
Subjective Date of Service: Oct 25, 2017. Subjective pt remains on broad spectrum emperic abx pending additional cultures/ serologies. Lyme pcr pending. hsv pcr pending. all cultures negative to date. last fever at 1 pm yesterday, afebrile x 24 hours. repeat blood cultures pending. ct chest done secondary to concern for aspiration at time of seizure at home, negative for infiltrate. wbc improving. multiple serologies pending. Problem List Medical Problems: (1) Altered mental status Status: Acute (2) Back pain Status: Acute (3) Chest pain Status: Acute (4) Contusion of knee, left Status: Acute (5) Fever Status: Acute (6) Hypokalemia Status: Acute (7) Hypomagnesemia Status: Acute (8) Laceration of left knee without foreign body Status: Acute (9) Lung nodule Status: Acute (10) Pulmonary nodule Status: Acute (11) Unresponsive episode Status: Acute Objective Vital Signs Date Time Temp Pulse Resp B/P (MAP) Pulse Ox O2 Delivery O2 Flow Rate FiO2 10/25/17 11:42 36.9 85 20 143/87 (105) 96 Room Air 10/25/17 08:00 Room Air 10/25/17 07:05 37.4 77 18 159/92 (114) 97 Room Air 174/120 (138) 10/25/17 03:30 36.9 76 18 148/97 (114) 94 Room Air 10/24/17 23:20 36.9 78 20 156/94 (114) 97 Room Air 10/24/17 20:30 98 Room Air 10/24/17 19:30 36.4 68 20 137/107 (117) 98 Room Air 10/24/17 15:46 37.2 70 18 147/97 (114) 97 Nasal Cannula 3.0 Laboratory Results Item Value Date Time Blood Culture - Preliminary Resulted 10/20/17 2315 Blood NO GROWTH TO DATE. Blood Culture - Preliminary Resulted 10/20/17 2343 Blood NO GROWTH TO DATE. Blood Culture - Preliminary Resulted 10/23/17 0818 Blood NO GROWTH TO DATE. Blood Culture - Preliminary Resulted 10/23/17 0825 Blood NO GROWTH TO DATE. Last 24 Hours Test 10/24/17 15:50 10/25/17 03:30 25-Hydroxy Vitamin D Total 29.3 ng/ml White Blood Count 11.12 K/uL Red Blood Count 3.68 M/uL Hemoglobin 11.1 g/dL Hematocrit 33.9 % Mean Corpuscular Volume 92.1 fL Mean Corpuscular Hemoglobin 30.2 pg Mean Corpuscular Hemoglobin Concent 32.7 g/dl Platelet Count 150 K/uL Mean Platelet Volume 9.8 fL Neutrophils (%) (Auto) 67.0 % Lymphocytes (%) (Auto) 18.9 % Monocytes (%) (Auto) 12.2 % Eosinophils (%) (Auto) 1.2 % Basophils (%) (Auto) 0.2 % Neutrophils # (Auto) 7.45 K/uL Lymphocytes # (Auto) 2.10 K/uL Monocytes # (Auto) 1.36 K/uL Eosinophils # (Auto) 0.13 K/uL Basophils # (Auto) 0.02 K/uL RDW Standard Deviation 44.5 fL RDW Coefficient of Variation 13.2 % Immature Granulocyte % (Auto) 0.5 % Immature Granulocyte # (Auto) 0.06 K/uL Nucleated RBC Absolute Count (auto) 0.02 K/uL Nucleated Red Blood Cells % 0.2 % Sodium Level 141 mmol/L Potassium Level 3.9 mmol/L Chloride Level 107 mmol/L Carbon Dioxide Level 28 mmol/L Anion Gap 6.0 mmol/L Blood Urea Nitrogen 8 mg/dl Creatinine 0.87 mg/dl Est Creatinine Clear Calc Drug Dose 90.9 ml/min Estimated GFR () 86.3 Estimated GFR (Non- 74.5 BUN/Creatinine Ratio 9.6 Random Glucose 124 mg/dl Calcium Level 7.0 mg/dl Total Bilirubin 0.5 mg/dl Aspartate Amino Transf (AST/SGOT) 18 U/L Alanine Aminotransferase (ALT/SGPT) 74 U/L Alkaline Phosphatase 56 U/L Total Protein 6.2 gm/dl Albumin 2.8 gm/dl Globulin 3.4 gm/dl Albumin/Globulin Ratio 0.8 Vancomycin Level Trough 16.9 mcg/ml Assessment and Plan (1) Fever Assessment & Plan: discussed at length with . will continue abx for now. would suggest repeat cxr in am. blood cultures pending. Continued [facility] stay due to: multiple IV medications needed
--- NOTE | 2017-10-25 14:16 | Pharmacy Progress Note ---
Pharmacy Abx Dose Short Note Date of Service Oct 25, 2017. Assessment & Plan Assessment 57 year old female receiving 2000mg Vancomycin IV Q12h for empiric treatment of possible meningitis Day # 2/2 of empiric antimicrobial therapy, with last dose 10/25/17 at 0400. Plan Vancomycin * Trough level of 16.9 mcg/mL is therapeutic. * Goal trough level for 15 to 20 mcg/mL * All blood cultures negative to date, repeat blood cultures pending. 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 * Spoke with Dr. Boland after rounds, Vancomycin will not be continued past 48 hours of therapy. Therefore, no further dose adjustments will be provided at this time. Pharmacy will continue to follow and will adjust dose/frequency as necessary. Thank you.
[2017-10-25 15:08] VITALS: BP 178/102; PULSE 81; TEMP 36.7; O2SAT 97
[2017-10-25] MEDS: CEFTRIAXONE SOD INJ 2,000 MG in DEXTROSE 5% 50ML 50 ML IV SCH (15:53)
[2017-10-25 19:54] VITALS: BP 166/110; PULSE 83; TEMP 37.3; O2SAT 96
[2017-10-25 23:34] VITALS: BP 162/97; PULSE 70; TEMP 36.6; O2SAT 95
[2017-10-26] MEDS: SODIUM CHLORIDE 0.9% 1000ML 1,000 ML IV SCH ×3 (02:29→22:04)
[2017-10-26] MEDS: ACYCLOVIR SOD INJ 750 MG in DEXTROSE 5% 250ML 250 ML IV SCH ×3 (02:29→18:12)
[2017-10-26 04:22] VITALS: BP 156/108; PULSE 78; TEMP 37.1; O2SAT 96
[2017-10-26] MEDS: IBUPROFEN 600 MG TAB PO PRN ×2 (04:36→15:43)
--- NOTE | 2017-10-26 06:51 | Family Medicine Progress Note ---
Progress Note Date of Service Oct 26, 2017. Subjective Pain: None PO Intake: good Voiding: no voiding problems She reports she feels well today. Had a headcahe overnight which resolved with motrin. She was a little nauseous at breakfast, but was able to eat cereal and toast. No vomiting. She had a bowel movement htis morning which was loose but without diarrhea, blood, or melena. She is voiding well. She notes she has osme eye strain and brief diplopia when putting her glasses on and off today, but it improves after a few moments. She feels much better overall today, and like she is near her normal cognitive baseline. 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 Constitutional: + fatigue, No fever, No chills, No sweats, No weakness ENT: No nasal symptoms, No sore throat Respiratory: No cough, No sputum, No wheezing, No shortness of breath, No dyspnea at rest Cardiovascular: No chest pain Abdomen: + nausea, No pain, No vomiting, No diarrhea, No constipation, No GI bleeding Female : + urinary frequency, No dysuria Neurologic: No weakness, No numbness/tingling, No vertigo Endo: + fatigue Skin: No rash, No new/changing skin lesions Medications Current Inpatient Medications Medications (Trade) Dose Ordered Sig/Lesa Route Start Time Stop Time Status Last Admin Dose Admin Aspirin (Ecotrin Tab) 325 mg DAILY PO 10/21/17 09:00 11/20/17 08:59 10/26/17 08:21 325 MG Acetaminophen (Tylenol Tab) 650 mg Q4H PRN PO 10/21/17 11:30 11/20/17 11:29 10/25/17 09:18 650 MG Levetiracetam (Keppra Tab) 500 mg BID PO 10/21/17 21:00 11/20/17 20:59 10/26/17 08:22 500 MG Lactobacillus Acidophilus (Floranex Tab) 4 tab TIDM PO 10/21/17 13:30 11/20/17 13:29 10/26/17 12:10 4 TAB Calcium Carbonate (Tums Chew Tab) 500 mg PRN PRN PO 10/21/17 23:00 11/20/17 22:59 10/24/17 13:05 500 MG Calcium Carbonate (oS-Alexsander 500 TAB) 500 mg BID PO 10/23/17 21:00 11/22/17 20:59 10/26/17 08:21 500 MG Cholecalciferol (Vitamin D Tab) 1,000 inter.unit QAM PO 10/24/17 09:00 11/23/17 08:59 10/26/17 08:20 1,000 INTER.UNIT Acyclovir Sodium 750 mg/Dextrose 265 ml @ 265 mls/hr Q8H IV 10/23/17 18:00 11/02/17 17:59 10/26/17 10:22 265 MLS/HR Ondansetron HCl 8 mg/Dextrose 54 ml @ 216 mls/hr Q6H PRN IV 10/23/17 15:45 11/22/17 15:44 10/23/17 23:20 216 MLS/HR Acetaminophen 100 ml @ 400 mls/hr Q8H PRN IV 10/23/17 16:30 11/22/17 16:29 10/24/17 13:11 400 MLS/HR Ibuprofen (Motrin Tab) 600 mg TID PRN PO 10/24/17 04:30 11/23/17 04:29 10/26/17 15:43 600 MG Sodium Chloride 1,000 ml @ 100 mls/hr Q10H IV 10/25/17 07:00 11/24/17 06:59 10/26/17 15:42 100 MLS/HR Objective Vital Signs Date Time Temp Pulse Resp B/P (MAP) Pulse Ox O2 Delivery O2 Flow Rate FiO2 10/26/17 15:17 37.3 75 20 161/94 (116) 95 Room Air 10/26/17 12:06 37.3 80 18 149/92 (111) 94 Room Air 10/26/17 08:01 36.8 70 18 156/103 (120) 95 Room Air 10/26/17 08:00 Room Air 10/26/17 04:22 37.1 78 17 156/108 (124) 96 Room Air 10/25/17 23:34 36.6 70 22 162/97 (118) 95 Room Air 10/25/17 19:54 37.3 83 18 166/110 (128) 96 Room Air 10/25/17 19:15 Room Air Physical Exam General Appearance: WD/WN, no apparent distress Eyes: normal inspection, PERRL, EOMI, sclerae normal ENT: hearing grossly normal Neck: supple, no adenopathy, no carotid bruits, trachea midline Respiratory/Chest: chest non-tender, lungs clear, normal breath sounds, no respiratory distress, no accessory muscle use Cardiovascular: regular rate, rhythm, no gallop, no murmur Abdomen: normal bowel sounds, non tender, soft, no organomegaly, no pulsatile mass Extremities: non-tender 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: alert, normal mood/affect, oriented x 3 Skin: warm/dry, no rash Laboratory Results 10/26/17 06:41 Red Blood Count 3.80, Mean Corpuscular Volume 91.3, Mean Corpuscular Hemoglobin 30.5, Mean Corpuscular Hemoglobin Concent 33.4, Mean Platelet Volume 10.0, Neutrophils (%) (Auto) 60.2, Lymphocytes (%) (Auto) 23.6, Monocytes (%) (Auto) 12.8, Eosinophils (%) (Auto) 2.5, Basophils (%) (Auto) 0.3, Neutrophils # (Auto ) 4.76, Lymphocytes # (Auto) 1.87, Monocytes # (Auto) 1.01, Eosinophils # (Auto ) 0.20, Basophils # (Auto) 0.02 10/26/17 06:38 Test 10/26/17 06:38 10/26/17 06:41 Anion Gap 7.0 mmol/L (3-11) Est Creatinine Clear Calc Drug Dose 101.8 ml/min Estimated GFR () 100.0 Estimated GFR (Non- 86.3 BUN/Creatinine Ratio 8.1 (10-20) Calcium Level 8.1 mg/dl (8.5-10.1) Total Bilirubin 0.6 mg/dl (0.2-1) Aspartate Amino Transf (AST/SGOT) 15 U/L (15-37) Alanine Aminotransferase (ALT/SGPT) 56 U/L (12-78) Alkaline Phosphatase 53 U/L (45-117) Total Protein 6.5 gm/dl (6.4-8.2) Albumin 2.9 gm/dl (3.4-5.0) Globulin 3.6 gm/dl (2.5-4.0) Albumin/Globulin Ratio 0.8 (0.9-2) White Blood Count 7.91 K/uL (4.8-10.8) Red Blood Count 3.80 M/uL (4.2-5.4) Hemoglobin 11.6 g/dL (12.0-16.0) Hematocrit 34.7 % (37-47) Mean Corpuscular Volume 91.3 fL (80-100) Mean Corpuscular Hemoglobin 30.5 pg (25-34) Mean Corpuscular Hemoglobin Concent 33.4 g/dl (32-36) Platelet Count 206 K/uL (130-400) Mean Platelet Volume 10.0 fL (7.4-10.4) Neutrophils (%) (Auto) 60.2 % Lymphocytes (%) (Auto) 23.6 % Monocytes (%) (Auto) 12.8 % Eosinophils (%) (Auto) 2.5 % Basophils (%) (Auto) 0.3 % Neutrophils # (Auto) 4.76 K/uL (1.4-6.5) Lymphocytes # (Auto) 1.87 K/uL (1.2-3.4) Monocytes # (Auto) 1.01 K/uL (0.11-0.59) Eosinophils # (Auto) 0.20 K/uL (0-0.5) Basophils # (Auto) 0.02 K/uL (0-0.2) RDW Standard Deviation 42.5 fL (36.4-46.3) RDW Coefficient of Variation 12.9 % (11.5-14.5) Immature Granulocyte % (Auto) 0.6 % Immature Granulocyte # (Auto) 0.05 K/uL (0.00-0.02) Assessment and Plan The patient is a 57-year-old female with a past medical history of hypertension and prediabetes that presented with acute altered mental status, increasing leukocytosis, fevers, and a possible seizure event. Improving clinically. 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 Will repeat Lyme antibodies tomorrow. - No fevers overnight, leukocytosis resolved (7.9 today). - Per Neuro: Likely seizure 2/2 syncopal event, AMS a post ictal state. - Improving clinically and leukocytosis downtrending since restarting ceftriaxone. - Doxy 100mg BID for tick borne coverage. Ceftriaxone 2g daily for tick encephalitis - Levetiracetam 500mg PO BID for seizure - Infectious studies pending (BCx2, West Nile, Varicella, Herpes, CSF Culture, Erlichia, Anaplasmosis) - Monoscreen and Lyme negative Fever of Unknown Origin - Unknown cause lasted for about 11 days - Improved, afebrile overnight, appears to be responding well to Rocephin - CT-Chest did not show any pneumonia/consolidations. - Planning to complete a 24 day course of ceftriaxone IV. Will need port and home infusion to be set up for d/c. Case management aware. Hypokalemia - 3.9 today - Potassium repletement 40meq in IVFM +/- 20mEq oral Klor as needed - Continue to monitor Hypocalcemia - Improved, 8.1 today (nl when corrected for albumin) - VitD was just barely low. Continue VD 1,000u daily supplement - Will continue to monitor Hypertension - Holding home HCTZ DVT - SCDs Code Status - Full Resuscitation Continued [facility] stay due to: multiple IV medications needed Resident Tracking Resident Involvement: Resident Care Provided Care Provided: Adult Hospital Medicine
[2017-10-26 07:06] LABS: BASO % 0.3 %; BASO ABS # 0.02 K/uL (0-0.2); EOS % 2.5 %; HEMATOCRIT 34.7 % (37-47); HEMOGLOBIN 11.6 g/dL (12.0-16.0); IG# 0.05 K/uL (0.00-0.02); LYMPH % 23.6 %; LYMPH ABS # 1.87 K/uL (1.2-3.4); MEAN CELL VOLUME 91.3 fL (80-100); MEAN CORPUSCULAR HEMOGLOBIN 30.5 pg (25-34); MEAN CORPUSCULAR HGB CONC 33.4 g/dl (32-36); MONO % 12.8 %; MONO ABS # 1.01 K/uL (0.11-0.59); NEUT % 60.2 %; NEUT ABS # 4.76 K/uL (1.4-6.5); PLATELET COUNT 206 K/uL (130-400); RED CELL DISTRIBUTION WIDTH CV 12.9 % (11.5-14.5); RED CELL DISTRIBUTION WIDTH SD 42.5 fL (36.4-46.3); WHITE BLOOD COUNT 7.91 K/uL (4.8-10.8)
[2017-10-26 07:32] LABS: ALBUMIN 2.9 gm/dl (3.4-5.0); CREATININE 0.77 mg/dl (0.60-1.20); POTASSIUM 3.4 mmol/L (3.5-5.1); TOTAL PROTEIN 6.5 gm/dl (6.4-8.2)
[2017-10-26 08:01] VITALS: BP 156/103; PULSE 70; TEMP 36.8; O2SAT 95
[2017-10-26 08:03] LABS: CALCIUM 8.1 mg/dl (8.5-10.1)
[2017-10-26] MEDS: LACTOBACILLUS ACIDOPHILUS (FLORANEX) TAB PO SCH ×3 (08:20→18:12)
[2017-10-26] MEDS: CHOLECALCIFEROL 1000 INTER.UNIT TAB PO SCH (08:20)
[2017-10-26] MEDS: ASPIRIN 325 MG ECTAB PO SCH (08:21)
[2017-10-26] MEDS: CALCIUM CARBONATE 1250MG TAB PO SCH ×2 (08:21→19:21)
[2017-10-26] MEDS: DOXYCYCLINE HYCLATE 100 MG CAP PO SCH (08:21)
[2017-10-26] MEDS: LEVETIRACETAM 500 MG TAB PO SCH ×2 (08:22→19:21)
--- NOTE | 2017-10-26 11:05 | Progress Note ---
Subjective Date of Service: Oct 26, 2017. Subjective Pt evaluation today including: conversation w/ patient, conversation w/ family , physical exam, chart review, lab review, review of studies pt oob to chair on my exam. more awake but still falls asleep easily during exam. No fevers >24 hours. tolerating abx. all blood and csf cultures negative. lyme pcr pending but other tick borne serologies negative. vanco stopped yesterday. remains on ctx and acyclovir - HSV and VZV pcr pending. no peterson, no neck pain. eating, no more n/v. no abd pain. all remaining ros reviewed and are negative. wbc nml today. at bedside Problem List Medical Problems: (1) Altered mental status Status: Acute (2) Back pain Status: Acute (3) Chest pain Status: Acute (4) Contusion of knee, left Status: Acute (5) Fever Status: Acute (6) Hypokalemia Status: Acute (7) Hypomagnesemia Status: Acute (8) Laceration of left knee without foreign body Status: Acute (9) Lung nodule Status: Acute (10) Pulmonary nodule Status: Acute (11) Unresponsive episode Status: Acute Objective Vital Signs Date Time Temp Pulse Resp B/P (MAP) Pulse Ox O2 Delivery O2 Flow Rate FiO2 10/26/17 08:01 36.8 70 18 156/103 (120) 95 Room Air 10/26/17 08:00 Room Air 10/26/17 04:22 37.1 78 17 156/108 (124) 96 Room Air 10/25/17 23:34 36.6 70 22 162/97 (118) 95 Room Air 10/25/17 19:54 37.3 83 18 166/110 (128) 96 Room Air 10/25/17 19:15 Room Air 10/25/17 15:08 36.7 81 20 178/102 (127) 97 Room Air 10/25/17 11:42 36.9 85 20 143/87 (105) 96 Room Air Physical Exam General Appearance: WD/WN, no apparent distress Eyes: normal inspection, EOMI Neck: supple Respiratory/Chest: lungs clear, normal breath sounds, no respiratory distress Cardiovascular: regular rate, rhythm, no edema Abdomen: non tender, soft Extremities: non-tender, no pedal edema 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: + pertinent finding (lethargic) Laboratory Results Item Value Date Time Blood Culture - Preliminary Resulted 10/23/17 0825 Blood NO GROWTH TO DATE. Blood Culture - Preliminary Resulted 10/23/17 0818 Blood NO GROWTH TO DATE. Gram Stain - Final Complete 10/21/17 0000 Cerebral Spinal Fluid Blood Culture - Final Complete 10/20/17 2343 Blood NO GROWTH Urine Culture - Final Complete 10/21/17 0044 Urine,Catheterized NO GROWTH - LESS THAN 1,000 COLONIES/ML Blood Culture - Final Complete 10/20/17 2315 Blood NO GROWTH Last 24 Hours Test 10/26/17 06:38 10/26/17 06:41 Sodium Level 141 mmol/L Potassium Level 3.4 mmol/L Chloride Level 105 mmol/L Carbon Dioxide Level 30 mmol/L Anion Gap 7.0 mmol/L Blood Urea Nitrogen 6 mg/dl Creatinine 0.77 mg/dl Est Creatinine Clear Calc Drug Dose 101.8 ml/min Estimated GFR () 100.0 Estimated GFR (Non- 86.3 BUN/Creatinine Ratio 8.1 Random Glucose 99 mg/dl Calcium Level 8.1 mg/dl Total Bilirubin 0.6 mg/dl Aspartate Amino Transf (AST/SGOT) 15 U/L Alanine Aminotransferase (ALT/SGPT) 56 U/L Alkaline Phosphatase 53 U/L Total Protein 6.5 gm/dl Albumin 2.9 gm/dl Globulin 3.6 gm/dl Albumin/Globulin Ratio 0.8 White Blood Count 7.91 K/uL Red Blood Count 3.80 M/uL Hemoglobin 11.6 g/dL Hematocrit 34.7 % Mean Corpuscular Volume 91.3 fL Mean Corpuscular Hemoglobin 30.5 pg Mean Corpuscular Hemoglobin Concent 33.4 g/dl Platelet Count 206 K/uL Mean Platelet Volume 10.0 fL Neutrophils (%) (Auto) 60.2 % Lymphocytes (%) (Auto) 23.6 % Monocytes (%) (Auto) 12.8 % Eosinophils (%) (Auto) 2.5 % Basophils (%) (Auto) 0.3 % Neutrophils # (Auto) 4.76 K/uL Lymphocytes # (Auto) 1.87 K/uL Monocytes # (Auto) 1.01 K/uL Eosinophils # (Auto) 0.20 K/uL Basophils # (Auto) 0.02 K/uL RDW Standard Deviation 42.5 fL RDW Coefficient of Variation 12.9 % Immature Granulocyte % (Auto) 0.6 % Immature Granulocyte # (Auto) 0.05 K/uL Assessment and Plan (1) Fever Assessment & Plan: ? lyme related, pcr pending, fevers resolved on abx. will stop doxy as other tick borne illness negative. will continue rocephin for ? lyme machine load clerk disease although LP essentially negative, only 2 wbc. had some mild protein elevation. would give 21 days total. will continue with acyclovir for now, will need 7 days total. Continued [facility] stay due to: multiple IV medications needed
[2017-10-26 12:06] VITALS: BP 149/92; PULSE 80; TEMP 37.3; O2SAT 94
[2017-10-26 15:17] VITALS: BP 161/94; PULSE 75; TEMP 37.3; O2SAT 95
[2017-10-26] MEDS ORDERED: POTASSIUM CHLORIDE 20 MEQ TABCR PO STA (18:00)
[2017-10-26] MEDS ORDERED: CEFTRIAXONE SOD INJ 2,000 MG in DEXTROSE 5% 50ML 50 ML IV STA (18:23)
[2017-10-26 19:59] VITALS: BP 150/93; PULSE 74; TEMP 36.9; O2SAT 96
[2017-10-26] MEDS: ACETAMINOPHEN 325 MG TAB PO PRN (22:57)
[2017-10-26 23:56] VITALS: BP 155/89; PULSE 74; TEMP 37.1; O2SAT 95
[2017-10-27] MEDS: ACYCLOVIR SOD INJ 750 MG in DEXTROSE 5% 250ML 250 ML IV SCH ×2 (01:53→11:34)
[2017-10-27] MEDS ORDERED: VANCOMYCIN TROUGH ONE (03:30)
[2017-10-27 03:50] VITALS: BP 153/101; PULSE 72; TEMP 36.8; O2SAT 97
[2017-10-27 05:57] LABS: BASO % 0.5 %; BASO ABS # 0.04 K/uL (0-0.2); EOS % 3.6 %; HEMATOCRIT 35.3 % (37-47); HEMOGLOBIN 12.1 g/dL (12.0-16.0); IG# 0.03 K/uL (0.00-0.02); LYMPH % 23.2 %; LYMPH ABS # 1.92 K/uL (1.2-3.4); MEAN CELL VOLUME 91.2 fL (80-100); MEAN CORPUSCULAR HEMOGLOBIN 31.3 pg (25-34); MEAN CORPUSCULAR HGB CONC 34.3 g/dl (32-36); MEAN PLATELET VOLUME 9.2 fL (7.4-10.4); MONO % 13.5 %; MONO ABS # 1.12 K/uL (0.11-0.59); NEUT % 58.8 %; NEUT ABS # 4.88 K/uL (1.4-6.5); PLATELET COUNT 223 K/uL (130-400); RED CELL DISTRIBUTION WIDTH SD 42.9 fL (36.4-46.3); WHITE BLOOD COUNT 8.29 K/uL (4.8-10.8)
[2017-10-27 06:28] LABS: ALBUMIN 2.8 gm/dl (3.4-5.0); ALKALINE PHOSPHATASE 55 U/L (45-117); ALT/SGPT 47 U/L (12-78); BLOOD UREA NITROGEN 7 mg/dl (7-18); CALCIUM 8.3 mg/dl (8.5-10.1); CARBON DIOXIDE 30 mmol/L (21-32); CREATININE 0.84 mg/dl (0.60-1.20); GLUCOSE 91 mg/dl (70-99); SODIUM 143 mmol/L (136-145); TOTAL PROTEIN 6.7 gm/dl (6.4-8.2)
[2017-10-27 07:44] LABS: POTASSIUM 3.6 mmol/L (3.5-5.1)
[2017-10-27 08:03] VITALS: BP 173/112; PULSE 75; TEMP 36.9; O2SAT 97
[2017-10-27] MEDS: CHOLECALCIFEROL 1000 INTER.UNIT TAB PO SCH (08:10)
[2017-10-27] MEDS: CALCIUM CARBONATE 1250MG TAB PO SCH (08:10)
[2017-10-27] MEDS: LEVETIRACETAM 500 MG TAB PO SCH (08:10)
[2017-10-27] MEDS: LACTOBACILLUS ACIDOPHILUS (FLORANEX) TAB PO SCH ×2 (08:11→11:34)
[2017-10-27] MEDS: ASPIRIN 325 MG ECTAB PO SCH (08:11)
[2017-10-27] MEDS ORDERED: POTASSIUM CHLORIDE 20 MEQ TABCR PO SCH (09:00)
--- NOTE | 2017-10-27 10:53 | Discharge Summary ---
Discharge Summary Date of Service Oct 27, 2017. 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: borderline T2DM, hypertension Procedures: MRI-Brain CT-Head CT-C spine CT-Abdomen/Pelvis CT-Chest Lumbar Puncture Consultations: Infectious Disease Neurology Discharge Exam Review of Systems: Constitutional: + fatigue, No fever, No chills, No sweats, No weakness Eyes: No worsening of vision, No diplopia ENT: No unusual epistaxis, No nasal symptoms, No sore throat Respiratory: No cough, No sputum, No wheezing, No shortness of breath, No dyspnea on exertion, No dyspnea at rest Cardiovascular: No chest pain, No palpitations Abdomen: No pain, No nausea, No vomiting, No diarrhea, No constipation Genitourinary - Female: + urinary frequency, No dysuria, No urinary incontinence, No urinary retention, No hematuria Neurologic: + problem reported (mild resting tremor in hands bilat), No weakness, No numbness/tingling, No vertigo Endocrine: + fatigue Hematologic / Lymphatic: No swollen lymph nodes, No night sweats Integumentary: No rash, No new/changing skin lesions Physical Exam: General Appearance: WD/WN, no apparent distress Eyes: normal inspection, PERRL, EOMI, sclerae normal ENT: hearing grossly normal Neck: supple, no adenopathy, no JVD, no carotid bruits, trachea midline Respiratory/Chest: chest non-tender, lungs clear, normal breath sounds, no respiratory distress, no accessory muscle use Cardiovascular: regular rate, rhythm, no edema, no gallop, no JVD, no murmur , normal peripheral pulses Abdomen / GI: normal bowel sounds, non tender, soft, no organomegaly, no pulsatile mass Extremities: normal inspection, no calf tenderness, no pedal edema, non- tender 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: normal mood/affect, normal reflexes, oriented x 3, + pertinent finding (Mild hand tremor ~5Hz in hands bilaterally) Skin: normal color, warm/dry, no rash Lymphatic: no adenopathy Hospital Course Farida Panchal is a 57yo F who was admitted to [facility] with AMS after being found down by her with severe bite bacon on her tongue. She had a one week prodrome of fever and nausea. On admit she was encephalopathic with extreme somnolence and confusion. Blood culture x2 were drawn and were negative. Lumbar puncture showed no cells with mildly increased protein, serology was taken for Lyme, Anaplasmosis, West Nile Virus, Ehrlichia, Flu, Varicella, and HSV. HSV and Varicella serologies were pending at d/c, otherwise serologies were negative. MRI-Brain, CT-H, CT-Ab/P, CT-C Spine, and CXR showed no acute findings. ID and Neurology were consulted. She was started on Ceftriaxone, Vancomycin, Acyclovir, IVFM, and Doxycycline. She continued to have somnolence and severe word finding difficulties and memory impairment the next morning. She was started on Keppra and her mental status improved throughout the day close to her normal preadmit baseline. Neuro felt she may have had a syncopal in the setting of infection with a seizure event 2/2 head trauma. Her antibiotics were narrowed and she was converted to oral doxycycline and oral Valtrex in anticipation of discharge, but began spiking fevers and had recurrent worsening of her neuro status over the next evening. Repeat blood cultures were negative. Her IV ceftriaxone and acyclovir were restarted. CT-C to evaluate possible secondary development of an aspiration pneumonia was negative. She continued to improve with gradual return to normal mental status and resolution of her leukocytosis over the next few days. Repeat Lyme antibody titers remained negative. She was clinically well close to her normal neurological baseline and had been afrebrile for ~48 hours on 10/27/17. She in good health for discharge to complete a 24 day total course of IV ceftriaxone based on clinical response and Lyme encephalitis coverage as outpatient. Doxy 100mg BID PO was continued to complete a 14 day course to be finished as outpatient to cover for anaplasmosis. A PICC was placed prior to discharge and she was set up for IV home infusion. Her Keppra was to be continued until followup with Neuro within one month. She was discharged with followup to her PCP, Neurology, and Infectious Disease. Resident Physician Supervision Note: I interviewed and examined the patient. Discussed with Dr. Boland and agree with findings and plan as documented in the note. 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 despite negative tests, have to work off assumption of false negative due to early in course of illness -also since prior [employer] lyme i've seen did not have accompanying high fevers like this, feel obligated to treat for concomitant anaplasmosis or other tick borne illness -rocephin x 4wks for presumed [employer] lyme -finish 14 days doxy for presumed anaplasmosis seizure -from above -keppra for now per neuro until outpt f/u -no driving until cleared by neuro stable for home Total Time Spent: Greater than 30 minutes This includes examination of the patient, discharge planning, medication reconciliation, and communication with other providers. Discharge Instructions Please refer to the electronic Patient Visit Report (Discharge Instructions) for additional information. Follow-Up Neurology ADDIE, Kirill Robbins MD Infectious Disease ADDIE, Farida Urbina DO Primary Care Paulino Ribeiro DO Additional Copies To Paulino Ribeiro DO; Farida Urbina., D.O.; Beronica Robbins M.D.
[2017-10-27] MEDS: ACETAMINOPHEN 325 MG TAB PO PRN (11:52)
[2017-10-27 11:59] VITALS: BP_SYST 166; BP_SYST 170; BP_DIAS 106; BP_DIAS 108; PULSE 80; TEMP 37.6; O2SAT 97
[2017-10-27 12:12] VITALS: BP 166/106; PULSE 80; TEMP 37.6; O2SAT 97
--- NOTE | 2017-10-27 12:16 | Discharge Instructions ---
Discharge Instructions Date of Service Oct 27, 2017. 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 You are on Keppra after having a provoked seizure and have a higher than normal seizure risk. You will have a followup appointment with Neurology. Please do not drive until they advise you it is safe to do so. Please gradually return to a level of physical activity to what is easily tolerated for you. . Instructions / Follow-Up Instructions / Follow-Up You were admitted to the hospital for altered mental status suspicious for Lyme Encephalitis. You are being discharged on three new medications- Keppra, Doxycycline, and Rocephin. Please take Keppra 500mg twice daily by mouth. Please take doxycycline 100mg twice daily by mouth. Please take Rocephin 2g through your PICC daily as instructed by PICC education team. Please keep your port clean and maintained as instructed by the education team. A followup appointments is being set up for you with [facility]. They should call you to confirm an appointment, if you do not hear from the or need to reschedule please call their office at . A followup appointments is being set up for you with [facility]. They should call you to confirm an appointment, if you do not hear from the or need to reschedule please call their office at [phone]. A followup appointments is being set up for you with your primary care provider Dr. Ribeiro. His office should call you to confirm an appointment, if you do not hear from the or need to reschedule please call his office at [phone]. If your condition worsens or you develop fever, chills, night sweats, rash, difficulty breathing, or chest pain please call your primary care provider Dr. Paulino Ribeiro at [phone] or call 911 to go to the emergency department if you are concerned. Please DO NOT drive yourself to the emergency department. Current Hospital Diet Patient's current hospital diet: AHA Diet (Heart Healthy) Discharge Diet Recommended Diet: Regular Diet Procedures Procedures Performed: ] HEAD WITHOUT CONTRAST (CT) CT DOSE: 974.03 mGy.cm HISTORY: Mental status change fever, seizure TECHNIQUE: Multiaxial CT images of the head were performed without the use of intravenous contrast. A dose lowering technique was utilized adhering to the principles of ALARA. Comparison: None. Findings: The paranasal sinuses and mastoid air cells are clear. The calvarium and skull base are intact. The ventricles and sulci are within normal limits. There is no mass, hematoma, midline shift, or acute infarct. Impression: No acute intracranial abnormality. The above report was generated using voice recognition software. It may contain grammatical, syntax or spelling errors. Electronically signed by: Tam Morales M.D. 10/21/2017 6:54 AM Dictated Date/Time: 10/21/2017 6:53 AM SINGLE VIEW CHEST CLINICAL HISTORY: Fever. FINDINGS: An AP, portable, upright chest radiograph is compared to chest x-ray and chest CT dated 07/14/2017. The examination is degraded by portable technique and patient rotation. The cardiomediastinal silhouette is unremarkable. There are low lung volumes with bibasilar atelectasis. No airspace consolidation or large pleural effusion is identified. No pneumothorax is seen. The bony thorax is grossly intact. IMPRESSION: No acute cardiopulmonary abnormality. Electronically signed by: Randy Graham M.D. 10/20/2017 11:36 PM Dictated Date/Time: 10/20/2017 11:34 PM CERVICAL SPINE W/O CT DOSE: HISTORY: Trauma fall, seizure TECHNIQUE: Multiaxial CT images of the cervical spine were performed and reformatted in the sagittal and coronal plane without the use of contrast. A dose lowering technique was utilized adhering to the principles of ALARA. COMPARISON: None. FINDINGS: No fractures. No subluxation. Prevertebral soft tissues and the C1-C2 interval are intact. No pneumothorax. IMPRESSION: No fractures within the cervical spine. Moderate degenerative change. The above report was generated using voice recognition software. It may contain grammatical, syntax or spelling errors. Electronically signed by: Tam Morales M.D. 10/21/2017 6:57 AM Dictated Date/Time: 10/21/2017 6:55 AM ABD/PELVIS IV CONTRAST ONLY CT DOSE: 972.32 mGy.cm HISTORY: Trauma. Pain. Flank pain. left flank contusion, recent n/v TECHNIQUE: Multiaxial CT images of the abdomen and pelvis were performed following the use of intravenous contrast. A dose lowering technique was utilized adhering to the principles of ALARA. COMPARISON STUDY: None. FINDINGS: Lung bases are clear. Liver spleen pancreas are unremarkable. No evidence for free fluid within the abdominal or pelvic region. 3 mm nonobstructing lower pole left renal calcification. Bowel pattern is nonobstructive. Several small calcified uterine fibroids. IMPRESSION: No acute process in the abdomen or pelvis. Incidental findings as noted. The above report was generated using voice recognition software. It may contain grammatical, syntax or spelling errors. Electronically signed by: Tam Morales M.D. 10/21/2017 7:01 AM Dictated Date/Time: 10/21/2017 6:59 AM (CHEST) THORAX WITHOUT CLINICAL HISTORY: Fever, cough, pulmonary edema. Possible aspiration pneumonia. CHEST 2 VIEWS ROUTINE CLINICAL HISTORY: Cough. Fever. COMPARISON STUDY: Chest CT July 14, 2017 and chest radiograph October 20, 2017. FINDINGS: There is no pneumothorax. There are trace bilateral pleural effusions. Mild elevation of the right hemidiaphragm is unchanged. Mild interlobular septal thickening suggests pulmonary edema. Cardiomediastinal silhouette is stable. No consolidation is identified. IMPRESSION: 1. Interstitial thickening suggestive of mild pulmonary edema. 2. Trace bilateral pleural effusions. Electronically signed by: Hector Lee M.D. 10/23/2017 10:01 AM Dictated Date/Time: 10/23/2017 10:00 AM COMPARISON STUDY: 07/14/2017 , chest x-ray dated 10/23/2017 CT DOSE: 721.04 mGy.cm TECHNIQUE: CT of the thorax was performed from the thoracic inlet to the lung bases. Images are reviewed in the axial, sagittal, and coronal planes. IV contrast was not administered for this examination. A dose lowering technique was utilized adhering to the principles of ALARA. FINDINGS: Thyroid: Imaged portions of the thyroid gland are normal in appearance. Thoracic aorta: The thoracic aorta is normal in course and caliber, noting standard 3 vessel arch anatomy. Heart: The heart is normal in size and configuration, without pericardial effusion. Lungs and pleural spaces: There are small bilateral pleural effusions. There are dependent atelectatic changes. There are no suspicious pulmonary masses. 3 right lung pulmonary nodules the largest of which measures 5 mm remain stable. Mediastinum: There is no mediastinal lymphadenopathy. Marilee: There is no evidence of pathologic hilar adenopathy given the limitations of a noncontrast study Axilla: There is no evidence of pathologic axillary lymphadenopathy Upper abdomen: There is probable cholelithiasis. Skeletal structures: There are no lytic or blastic osseous lesions. IMPRESSION: 1. Small bilateral pleural effusions 2. Dependent airspace opacities likely atelectatic 3. Stable right lung pulmonary nodules the largest of which measures 5 mm. In a low risk patient, no routine follow-up is deemed necessary. In a high risk patient a 12 month follow-up is optional 4. No evidence of pathologic adenopathy on this noncontrast study. Electronically signed by: Terrance Pendleton M.D. 10/24/2017 3:47 PM Dictated Date/Time: 10/24/2017 3:41 PM Brain MRI WITH AND WITHOUT CONTRAST HISTORY: Possible seizure. Dizziness. Stroke TECHNIQUE: Multiplanar multisequence MRI of the brain was performed both before and after the intravenous administration of contrast. COMPARISON STUDY: Head CT 10/20/2017. FINDINGS: There are no areas of restricted diffusion to suggest acute infarction. The midline structures are intact. The paranasal sinuses are clear. The mastoid air cells are clear. The ventricles and sulci are within normal limits for age. There is no mass, hematoma, midline shift. The major vascular flow-voids at the skull base are well maintained. Postcontrast sequences show no areas of abnormal enhancement. There are few scattered punctate foci of T2 hyperintensity within the white matter of the supratentorial brain. These are nonspecific but favor minimal microvascular ischemic change given the patient's age. The temporal lobes are symmetric. IMPRESSION: No acute intracranial abnormality. Electronically signed by: Dick Riley M.D. 10/21/2017 7:26 AM Dictated Date/Time: 10/21/2017 7:18 AM Pending Studies Studies pending at discharge: yes List of pending studies: HSV I Serology HSV II Serology Varicella Zoster serology Laboratory Results Hemoglobin A1c Test 10/21/17 05:47 Range/Units Estimated Average Glucose 137 mg/dl Hemoglobin A1c 6.4 H 4.5-5.6 % Lipid Panel Test 10/22/17 06:02 Range/Units Triglycerides Level 102 0-150 mg/dl Cholesterol Level 138 0-200 mg/dl HDL Cholesterol 36 mg/dl Cholesterol/HDL Ratio 3.8 LDL Cholesterol, Calculated 82 mg/dl Medical Emergencies . Who to Call and When: Medical Emergencies: If at any time you feel your situation is an emergency, please call 911 immediately. . Non-Emergent Contact Non-Emergency issues call your: Primary Care Provider Contact Number: [phone] . Past History Medical & Surgical History: (1) Encephalopathy due to infection . "Provider Documentation" section prepared by Hayder Boland. .
[2017-10-27] MEDS ORDERED: CEFT1INJ57 IV ×2 (12:27→12:34)
[2017-10-27] MEDS ORDERED: LEVE250T PO (12:27)
[2017-10-27] MEDS ORDERED: DOXY100C76 PO (12:27)
[2017-10-27] MEDS ORDERED: CEFTRIAXONE SOD INJ 2,000 MG in DEXTROSE 5% 50ML 50 ML IV SCH (18:30)
== END 2017-10-27 13:46 | disposition home health service (06) | DRG 867 ==
LOC: EDBD 23:00 → C.EDC 23:01 → C.2T 10-21 02:29 → ENRESERV 10-21 03:36 → CANRESERV 10-21 03:36 → ENRESERV 10-21 03:39 → C.2E 10-23 19:02
PROVIDERS: ADMIT Student in an Organized Health Care Education/Training Program; ATTEND Family Medicine
PROC: 009U3ZX Drainage of Spinal Canal, Percutaneous Approach, Diagnostic (ICD-10-PCS; 2017-10-21)
PROC: 02HV33Z Insertion of Infusion Device into Superior Vena Cava, Percutaneous Approach (ICD-10-PCS; principal; 2017-10-27)
DX: A69.22 Other neurologic disorders in Lyme disease (principal); G04.81 Other encephalitis and encephalomyelitis; I10 Essential (primary) hypertension; E87.6 Hypokalemia; E83.42 Hypomagnesemia; R73.03 Prediabetes; E83.51 Hypocalcemia